=== PATIENT | female | born 1955 | race Caucasian/White ===

== ENCOUNTER 2018-07-14 07:18 | Day surgery (SDC) | payer OTHER ==
--- OUTSIDE RECORDS SUMMARY | 2018-07-14 07:21 | XMS REPORT | Continuity of Care Document ---
:1955 Author Organization Interface Problems Problem Status Onset Classification Date Comments Source Date Reported SLE Active 03/22/20 Finding 03/31/[address] [facility] Status post fall Active 03/22/20 Finding 03/31/[address] [facility] Urinary Active 03/22/20 Finding 03/31/[address] [facility] incontinence [facility] [place] Chronic pain Active 03/22/20 Finding 03/31/[address] [facility] [place] Chronic Active 03/22/20 Finding 03/31/[address] [facility] anticoagulation [facility] [place] Depression Active 03/22/20 Finding 03/31/[address] [facility] [place] Hyperlipidemia Active 03/22/20 Finding 03/31/[address] [facility] [place] GERD Active 03/22/20 Finding 03/31/[address] [facility] Hypertension Active 03/22/20 Finding 03/31/[address] [facility] Closed right hip Active 03/22/20 Finding 03/31/[address] [facility] fracture [facility] [place] Hypomagnesemia Active 03/22/20 Finding 03/31/[address] [facility] [place] History of mitral Active Finding 03/31/[address] [facility] valve repair [facility] [place] History of type 2 Active Finding 03/31/[address] [facility] diabetes mellitus [facility] [place] Chronic back pain Active Finding 03/31/[address] [facility] History of Active Finding 03/31/[address] [facility] hypertension [facility] [place] Medications Medication Details Route Status Patient Ordering Order Source Instructions Provider Date Iron/Fa/Vit DAILY Active [place] [facility]-Com W/C [facility] Atorvastatin AT BEDTIME Active [place] [facility] Calcium [facility] [place] Hydrocodone Q6H PRN Active [facility] 7.5/Apap 325 [facility]17 [facility] [place] Metoprolol TWICE Active [place] [facility] Tartrate DAILY [facility] [place] Bupropion Hcl DAILY Active [facility] [place] Citalopram DAILY Active [facility] [place] Gabapentin Q6H Active [facility] [place] Lisinopril TWICE Active [facility] DAILY [facility] [place] Amlodipine DAILY Active [facility] [place] Warfarin Sodium DAILY Active [facility] [place] Metoprolol TWICE Active [facility] Tartrate DAILY [facility]17 [facility] [place] Omeprazole DAILY Active [facility] [place] Oxybutynin TWICE Active [facility] Chloride DAILY [facility] [place] Trazodone Hcl AT BEDTIME Active [facility] [place] Enoxaparin TWICE Active [facility] Sodium DAILY [facility] [place] Hydrocodone TWICE Active [facility] Bit/Acetaminoph DAILY PRN [facility]17 [facility] [place] Allergies, Adverse Reactions, Alerts Substance Category Reaction Severity Reaction Status Date Comments Source type Reported Immunizations Immunization Date Given Site Status Last Updated Comments Source Results Order Name Results Value Reference Date Interpretation Comments Source Range Laboratory Sodium Level 137 mEq/L 135 - 145 03/31 [facility] . [facility] [place] [facility] Prealbumin 12.2 mg/dl 18 - 38 03/31 [facility] . [facility] [place] [facility] Potassium 4.6 mEq/L 3.6 - 5.0 03/31 [facility] [place] [facility] Magnesium 2.0 mg/dL 1.8 - 2.5 03/31 [facility] [place] [facility] Glucose Level 102 mg/dL 65 - 120 03/31 [facility] . [facility] [place] [facility] Estimat 72 mL/min 90 03/31 [facility] St[facility] Studies Glomerular /2017 [facility] Filtration [place] Rate Laboratory Creatinine 0.81 mg/dL 0.44 - 03/31 [facility] St[facility] Studies 1.00 [facility] [place] Laboratory Chloride 97 mEq/L 101 - 111 03/31 [facility] St[facility] Studies Level /2017 [facility] [place] Laboratory Carbon 35 mEq/L 21 - 31 03/31 [facility] St[facility] Studies Dioxide Level /2017 [facility] [place] Laboratory Calcium Level 8.9 mg/dL 8.5 - 10.5 03/31 [facility] St. Studies /2017 [facility] [place] Laboratory Blood Urea 17 mg/dL 6 - 20 03/31 [facility]3]. Studies Nitrogen /2017 [facility] [place] Laboratory Albumin 2.6 g/dL 3.2 - 5.5 03/31 [facility] St. Studies /2017 [facility] [place] Laboratory Prothrombin 28.3 9.5 - 12.5 03/31 [facility] St. Studies Time SECONDS [facility] [place] Laboratory INR 2.38 03/31 [facility] St. Studies International /2017 [facility] Normalized [place] Ratio Laboratory White Blood 7.3 K/uL 4.3 - 10.9 03/31 [facility] St. Studies Count /2017 [facility] [place] Laboratory Red Cell 13.9 % 12.1 - 03/31 [facility]3]. Studies Distribution 15.2 [facility] Width [place] Laboratory Red Blood 3.16 M/uL 3.86 - 03/31 [facility] St. Studies Count 4.86 /2017 [facility] [place] Laboratory Platelet 329 K/uL 152 - 406 03/31 [facility] St. Studies Count /2017 [facility] [place] Laboratory Neutrophils % 63.8 % 41.7 - 03/31 [facility] St. Studies 73.7 /2017 [facility] [place] Laboratory Monocytes % 13.4 % 3.3 - 12.3 03/31 [facility] St. Studies /2018 [facility] [place] Laboratory Mean Platelet 8.2 fL 7.6 - 11.3 03/31 [facility] St. Studies Volume /2018 [facility] [place] Laboratory Mean 92.4 fL 80 - 100 03/31 [facility] St. Studies Corpuscular /2018 [facility] Volume [place] Laboratory Mean 33.1 g/dL 32.0 - 03/31 [facility] St. Studies Corpuscular 36.0 /2017 [facility] Hemoglobin [place] Concent Laboratory Mean 30.6 pg 27.0 - 03/31 [facility] St. Studies Corpuscular 35.0 /2017 [facility] Hemoglobin [place] Laboratory Lymphocytes % 20.1 % 15.3 - 01 [facility] St. Studies 44.8 /2017 [facility] [place] Laboratory Hemoglobin 9.7 g/dL 12.0 - 03/31 [facility] St. Studies 15.0 /2017 [facility] [place] Laboratory Hematocrit 29.2 % 36.0 - 03/31 [facility] St. Studies 45.0 /2017 [facility] [place] Laboratory Eosinophils % 1.3 % 0 - 4.4 03/31 St. Studies /2017 [facility] [place] Laboratory Basophils % 1.4 % 0 - 1.3 03/31 [facility] St[facility] Studies [facility] [place] Laboratory Absolute 4.6 K/uL 1.8 - 8.0 03/31 [facility] St. Studies Neutrophil [facility] [place] Laboratory Absolute 1.0 K/uL 0.1 - 1.3 03/31 [facility] St[facility] Studies Monocytes [facility] (CBC) [place] Laboratory Absolute 1.5 K/uL 0.7 - 4.9 03/31 [facility] St. Studies Lymphocytes [facility] (CBC) [place] Laboratory Absolute 0.1 K/uL 0 - 0.5 03/31 [facility] St. Studies Eosinophils [facility] (CBC) [place] Laboratory Absolute 0.1 K/uL 0 - 0.5 03/31 [facility] St. Studies Basophils [facility] (CBC) [place] Microbiolog Escherichia Escherichia 03/27 [facility] St. y Studies Coli Coli /2016 [facility] [place] Laboratory Urine WBC Urine WBC 03/25 [facility] St[facility] Studies [facility] [place] Laboratory Urine Urine 03/25 [facility] St[facility] Studies Squamous Squamous /2016 [facility] Epithelial Epithelial [place] Cells Cells Laboratory Urine RBC null 03/25 St. Studies [facility] [place] Laboratory Urine Culture Urine 03/25 [facility] St[facility] Studies Reflexed Culture /2016 [facility] Reflexed [place] Laboratory Urine null 03/25 [facility] St[facility] Studies Bacteria [facility] [place] Laboratory Urine pH 6.5 03/25 [facility] [address] Studies [facility] [place] Laboratory Urine 0.2 mg/dL 03/25 [facility] St[facility] Studies Urobilinogen [facility] [place] Laboratory Urine Total Urine Total 03/25 [facility] [address] Studies Protein Protein [facility] [place] Laboratory Urine Urine 03/25 [facility] [address] Studies Specific Specific /2016 [facility] [place] Laboratory Urine Nitrite Urine 03/25 [facility] [address] Studies Nitrite [facility] [place] Laboratory Urine Urine 03/25 [facility] [address] Studies Leukocyte Leukocyte [facility] Esterase Esterase [place] Laboratory Urine Ketones Urine 03/25 [facility] [address] Studies Ketones [facility] [place] Laboratory Urine Glucose Urine 03/25 [facility] [address] Studies Glucose [facility] [place] [facility] Urine Color Urine Color 03/25 [facility] [address] Studies [facility] [place] Laboratory Urine Blood Urine Blood 03/25 [facility] [address] Studies [facility] [place] Laboratory Urine Urine 03/25 [facility] [address] Studies Bilirubin Bilirubin [facility] [place] Laboratory Urine Urine 03/25 [facility] [address] Studies Appearance Appearance [facility] [place] Microbiolog Enterococcus Enterococcu 03/24 [facility] St[facility] y Studies Faecalis s Faecalis [facility] [place] Laboratory Phosphorus 3.1 mg/dL 2.5 - 4.3 03/21 [facility] St[facility] Studies Level /2016 [facility] [place] Vital Signs Vital Sign Value Date Comments Source Temperature Oral (F) 97.2 F 03/31/2017 [facility] [place] Heart Rate 75 03/31/2017 [facility] [place] Respitory Rate 16 03/31/2017 [facility] [place] Systolic (mm Hg) 112 03/31/2017 [facility] [place] Diastolic (mm Hg) 53 03/31/[address] [facility] [place] Height 65 03/26/[address] [facility] [place] Weight 135 03/26/2017 [facility] [place] Encounters Location Location Encounter Encounter Reason Attending ADM DC Status Source Details Type Number For Provider Date Date Visit [id number]20 03[facility]24 [facility] [place] [facility] St[facility] Discharged [id number] 03/24 03[facility]31 [facility] Procedures Procedure Code Date Perfomer Comments Source [place] Count [id number] 03/25/2017 DOC Bill [id number] 03/25/2017 DOC [facility] [place] Count [id number] 03/22/2017 DOC Bill [id number] 03/22/2017 DOC Bill HIP BIOMET BIPOLAR [id number] 03/21/2017 [place] [facility] [place] [facility] MARIE Rodrigezt Pelvis [id number] 03/21/2017 DOC Bill Hip Right 2 View [id number] 03/20/2017 DOC Bill Chest Single View [id number] 03/20/2017 DOC Bill Pelvis [id number] 03/20/2017 [facility]
--- OUTSIDE RECORDS SUMMARY | 2018-07-14 07:22 | XMS REPORT ---
:1955 Author Organization eClinicalWorks Care Team Providers Name Role Phone Devin Quispe Provider Role Unavailable Allergies No Known Allergies Problems Problem Type Condition Code Onset Dates Condition Status Problem History of mitral valve replacement Z95.2 Active Problem Tobacco use disorder F17.200 Active Problem Hematuria, unspecified R31.9 Active Problem Depression with anxiety F41.8 Active Problem Chronic back pain M54.9 Active Problem Stress incontinence N39.3 Active Problem Chronic obstructive pulmonary J44.9 Active disease (COPD) Problem Hyperlipidemia, mixed E78.2 Active Problem Benign hypertension I10 Active Problem Lumbar disc herniation M51.26 Active Assessment History of mitral valve replacement Z95.2 Active Problem Peripheral vascular disease I73.9 Active Problem Incontinence of urine R32 Active Problem Hypomagnesemia E83.42 Active Problem History of cerebrovascular accident Z86.73 Active Problem Peptic ulcer disease K27.9 Active Problem Spinal stenosis of lumbar region, M48.061 Active unspecified whether neurogenic claudication present Medications Medication Code System Code Instructions Start End Date Status Dosage Date Warfarin Sodium [facility] 42380762854 5 MG Orally once Active 1 tab daily Results No Known Results Summary Purpose eClinicalWorks Submission
--- OUTSIDE RECORDS SUMMARY | 2018-07-14 07:22 | XMS REPORT ---
[...] Problem Lumbar disc herniation M51.26 Active Assessment Chronic obstructive pulmonary J44.9 Active disease (COPD) Assessment Encounter for preventative adult Z00.01 Active health care exam with abnormal findings Problem Peripheral vascular disease I73.9 Active Problem Incontinence of urine R32 Active Problem Hypomagnesemia E83.42 Active Problem History of cerebrovascular accident Z86.73 Active Problem Peptic ulcer disease K27.9 Active Problem Spinal stenosis of lumbar region, M48.061 Active unspecified whether neurogenic claudication present Medications No Known Medications Results No Known Results Summary Purpose eClinicalWorks Submission
--- OUTSIDE RECORDS SUMMARY | 2018-07-14 07:22 | XMS REPORT ---
[...] Active Problem Lumbar disc herniation M51.26 Active Problem Peripheral vascular disease I73.9 Active Problem Incontinence of urine R32 Active Problem Hypomagnesemia E83.42 Active Problem History of cerebrovascular accident Z86.73 Active Problem Peptic ulcer disease K27.9 Active Problem Spinal stenosis of lumbar region, M48.061 Active unspecified whether neurogenic claudication present Medications Medication Code Code Instructions Start End Status Dosage System Date Date Atorvastatin [facility] 33431097556 10 MG Orally Active 1 tablet Calcium Once a day Triamcinolone [facility] 80010709263 0.1 Externally Active 1 application Acetonide 2-3 times a day to affected area Results No Known Results Summary Purpose eClinicalWorks Submission
--- OUTSIDE RECORDS SUMMARY | 2018-07-14 07:22 | XMS REPORT ---
:1955 Author Organization eClinicalWorks Care Team Providers Name Role Phone Jose Enrique Devin Provider Role Unavailable Allergies No Known Allergies [...] Medications Results No Known Results Summary Purpose [employer] Submission
--- OUTSIDE RECORDS SUMMARY | 2018-07-14 07:22 | XMS REPORT ---
:1955 Author Organization eClinicalWorks Care Team Providers Name Role Phone EvelinsoledadDerick Provider Role Unavailable Allergies, Adverse Reactions, Alerts Substance Reaction Event Type Tylenol # 3 Info Not Available Drug Allergy Problems Problem Type Condition Code Onset Dates [...] Problem Lumbar disc herniation M51.26 Active Assessment Encounter for screening colonoscopy Z12.11 Active Problem Peripheral vascular disease I73.9 Active Problem Incontinence of urine R32 Active Problem Hypomagnesemia E83.42 Active Problem History of cerebrovascular accident Z86.73 Active Problem Peptic ulcer disease K27.9 Active Problem Spinal stenosis of lumbar region, M48.061 Active unspecified whether neurogenic claudication present Medications Medication Code Code Instructions Start End Status Dosage System Date Date Norvasc [facility] 44921984041 5 MG Orally Active 1 tablet Once a day Oxybutynin [facility] 55758436470 5 MG Active 2 TABS BY Chloride MOUTH EVERY 12 HOURS Citalopram [facility] 65445387350 40 MG Orally Active 1.5 tablets Hydrobromide once a day Omeprazole [facility] 83869355383 20 Active TAKE 1 CAPSULE BY MOUTH EVERY DAY HydrOXYzine [facility] 28068203575 50 MG Orally Active 1 capsule as Pamoate every 8 hrs needed PRN anxiety Hemocyte [facility] 45077288386 324 (106 Fe) Active not defined MG Orally Warfarin Sodium [facility] 16818214309 5 MG Orally Active 1 tab once daily Oxybutynin [facility] 05853377241 5 MG Orally Active 1 tablet Chloride Twice a day Trazodone HCl [facility] 00201700862 100 Active 1 TAB BY MOUTH TWICE DAILY Metoprolol [facility] 11043580357 25 MG Orally Active 0.5 tablet Tartrate ONce a day with food Gabapentin [facility] 36172785706 600 Active TAKE 1 TABLET BY MOUTH FOUR TIMES DAILY [place] [facility] 68037575293 5-325 MG Active 1 tablet as Orally every 6 needed hrs Gabapentin [facility] 26680373287 600 MG Orally Active 1 tablet 4 TIMES PER DAY Ventolin HFA [facility] 50688182604 108 (90 Base) Active 2 PUFF(S) MCG/ACT INHALED 4 TIMES A DAY FOR 30 DAYS Atorvastatin [facility] 73806808989 10 MG Orally Active 1 tablet Calcium Once a day Trazodone HCl [facility] 22170696572 100 MG Orally Active 1 tablet TWICE DAILY BuPROPion HCl ER [facility] 31072669891 300 MG Orally Active 1 tab (XL) once a day Triamcinolone [facility] 90477356387 0.1 Externally Active 1 application Acetonide 2-3 times a to affected day area Omeprazole [facility] 16684301832 20 MG Orally Active 1 capsule Once a day Lipitor [facility] 21421358933 10 Orally Once Active 1 tablet a day Kenalog [facility] [address]-09 0.1% Active 1 application Externally to affected Three times a area day Oxybutynin [facility] 23757084385 5 Active 2 TABS BY Chloride MOUTH EVERY 12 HOURS Lipitor [facility] 68400377781 10 MG Orally Active 1 tablet Once a day Results No Known Results Summary Purpose eClinicalWorks Submission
--- OUTSIDE RECORDS SUMMARY | 2018-07-14 07:22 | XMS REPORT ---
:1955 Author Organization eClinicalWorks Care Team Providers Name Role Phone Jose Enrique [facility] Provider Role Unavailable Allergies, Adverse Reactions, Alerts Substance Reaction Event Type Tylenol # 3 Info Not Available Drug Allergy Problems Problem Type Condition Code Onset Dates Condition Status Problem History of mitral valve replacement Z95.2 Active Problem Tobacco use disorder F17.200 Active Problem Hematuria, unspecified R31.9 Active Problem Depression with anxiety F41.8 Active Assessment Screening mammogram, encounter for Z12.31 Active Problem Chronic back pain M54.9 Active Assessment Encounter for screening for other Z11.59 Active viral diseases Assessment Need for Tdap vaccination Z23 Active Problem Stress incontinence N39.3 Active Problem Chronic obstructive pulmonary J44.9 Active disease (COPD) Problem Hyperlipidemia, mixed E78.2 Active Problem Benign hypertension I10 Active Problem Lumbar disc herniation M51.26 Active Assessment Encounter for preventative adult Z00.01 Active health care exam with abnormal findings Assessment Screening for colon cancer Z12.11 Active Assessment Tobacco use disorder F17.200 Active Problem Peripheral vascular disease I73.9 Active Problem Incontinence of urine R32 Active Problem Hypomagnesemia E83.42 Active Problem History of cerebrovascular accident Z86.73 Active Assessment Need for pneumococcal vaccination Z23 Active Problem Peptic ulcer disease K27.9 Active Problem Spinal stenosis of lumbar region, M48.061 Active unspecified whether neurogenic claudication present Medications Medication Code Code Instructions Start End Status Dosage System Date Date Lipitor [facility] 20032867579 10 MG Orally Active 1 tablet Once a day Gabapentin ND 69581336967 600 MG Orally Active 1 tablet 4 TIMES PER DAY Hemocyte [facility] 78263388978 324 (106 Fe) Active not defined MG Orally Oxybutynin ND 55942427463 5 MG Active 2 TABS BY Chloride MOUTH EVERY 12 HOURS Oxybutynin ND 11349059706 5 MG Orally Active 1 tablet Chloride Twice a day Omeprazole ND 29958688013 20 Active TAKE 1 CAPSULE BY MOUTH EVERY DAY Atorvastatin ND 73614192930 10 Active TAKE 1 TABLET Calcium BY MOUTH AT BEDTIME. Omeprazole [facility] 64724033769 20 MG Orally Active 1 capsule Once a day Metoprolol [facility] 12711421399 25 MG Orally Active 0.5 tablet Tartrate ONce a day with food Ventolin HFA [facility] 50814974060 108 (90 Base) Active 2 PUFF(S) MCG/ACT INHALED 4 TIMES A DAY FOR 30 DAYS Kenalog [facility] [address]-41 0.1% Active 1 application Externally to affected Three times a area day Oxybutynin [facility] 40379061091 5 Active 2 TABS BY Chloride MOUTH EVERY 12 HOURS Gabapentin [facility] 76273187225 600 Active TAKE 1 TABLET BY MOUTH FOUR TIMES DAILY Citalopram [facility] 10771643958 40 MG Orally Active 1.5 tablets Hydrobromide once a day BuPROPion HCl ER [facility] 69274749985 300 MG Orally Active 1 tab (XL) once a day Norvasc [facility] 18818661385 5 MG Orally Active 1 tablet Once a day [place] [facility] 32093980315 5-325 MG Active 1 tablet as Orally every 6 needed hrs HydrOXYzine [facility] 67553084765 50 MG Orally Active 1 capsule as Pamoate every 8 hrs needed PRN anxiety Lipitor [facility] 14451204247 10 Orally Once Active 1 tablet a day Trazodone HCl [facility] 21568740236 100 Active 1 TAB BY MOUTH TWICE DAILY Warfarin Sodium [facility] 31956852056 5 MG Orally Active not defined Triamcinolone [facility] 84741911942 0.1 Active APPLY 2-3 Acetonide TIMES DAILY TO AFFECTED AREA(S). Trazodone HCl [facility] 63798929793 100 MG Orally Active 1 tablet TWICE DAILY Results No Known Results Immunizations Vaccine Administration Date TDAP > 7 Years-Adacel Nov 21, 2017 Pneumovax Nov 21, 2017 Summary Purpose eClinicalWorks Submission
--- OUTSIDE RECORDS SUMMARY | 2018-07-14 07:22 | XMS REPORT ---
[...] Medications Results No Known Results Summary Purpose [employer] Submission
--- OUTSIDE RECORDS SUMMARY | 2018-07-14 07:22 | XMS REPORT ---
[...] Start End Status Dosage System Date Date Citalopram [facility] 51377900153 40 MG Orally Dec 16, Active 1 tablet Hydrobromide Once a day 2017 with 20mg=60mg Citalopram NDC 82869200157 20 MG Orally Dec 16, Active 1 tablet Hydrobromide Once a day 2017 with 40mg=60mg Results No Known Results Summary Purpose eClinicalWorks Submission
--- OUTSIDE RECORDS SUMMARY | 2018-07-14 07:22 | XMS REPORT ---
:1955 Author Organization eClinicalWorks Care Team Providers Name Role Phone [place] Tasha Provider Role Unavailable Allergies No Known Allergies [...]
--- OUTSIDE RECORDS SUMMARY | 2018-07-14 07:22 | XMS REPORT ---
:1955 [facility] Address [address] [place] [address] [address] [place] [address] Care Team Providers Name Role Phone Unavailable Unavailable Unavailable Problems This patient has no known problems. Allergies, Adverse Reactions, Alerts This patient has no known allergies or adverse reactions. Medications This patient has no known medications.
--- OUTSIDE RECORDS SUMMARY | 2018-07-14 07:22 | XMS REPORT ---
[...] Medications Results No Known Results Summary Purpose [facility] [employer] Submission
--- OUTSIDE RECORDS SUMMARY | 2018-07-14 07:23 | XMS REPORT ---
:1955 Author Organization eClinicalWorks Care Team Providers Name Role Phone Devin Quispe Provider Role Unavailable Allergies No Known Allergies Problems Problem Type Condition Code Onset Dates Condition Status Problem Tobacco use disorder F17.200 Active Problem Chronic obstructive pulmonary J44.9 Active disease (COPD) Problem Hyperlipidemia, mixed E78.2 Active Problem Abnormal mammogram R92.8 Active Problem Stress incontinence N39.3 Active Problem Atherosclerosis of [place] artery of I70.211 Active right lower extremity with intermittent claudication Problem Benign hypertension I10 Active Problem Lumbar disc herniation M51.26 Active Problem Depression with anxiety F41.8 Active Problem Chronic back pain M54.9 Active Problem Hypomagnesemia E83.42 Active Problem Peptic ulcer disease K27.9 Active Assessment Benign hypertension I10 Active Problem History of cerebrovascular accident Z86.73 Active Problem Spinal stenosis of lumbar region, M48.061 Active unspecified whether neurogenic claudication present Problem Peripheral vascular disease I73.9 Active Problem History of mitral valve replacement Z95.2 Active Problem Incontinence of urine R32 Active Problem Hematuria, unspecified R31.9 Active Medications Medication Code Code Instructions Start End Status Dosage System Date Date Ventolin HFA [facility] 95012137327 108 (90 Base) Active 2 puffs as MCG/ACT needed Inhalation every 6 hrs Hemocyte [facility] 81537920804 324 (106 Fe) Active not defined MG Orally Gabapentin ND 75897122100 600 MG Orally Active 1 tablet 4 TIMES PER DAY HydrOXYzine ND 83661752062 50 MG Orally Active 1 capsule as Pamoate every 8 hrs needed PRN anxiety BuPROPion HCl ND 48403420834 300 MG Orally Active 1 tab ER (XL) once a day BuPROPion HCl ND 42111302667 300 Orally Active 1 tab ER (XL) once a day Omeprazole ND 77104145088 20 Active TAKE 1 CAPSULE BY MOUTH EVERY DAY Omeprazole ND 69995719757 20 MG Orally Active 1 capsule Once a day Oxybutynin [facility] 03434868615 5 MG Orally Active 1 tablet Chloride Twice a day Ventolin HFA [facility] 85032249207 108 (90 Base) Active 2 PUFF(S) MCG/ACT INHALED 4 TIMES A DAY FOR 30 DAYS Trazodone HCl [facility] 29858369485 100 MG Orally Active 1 tablet TWICE DAILY Gabapentin [facility] 17404904768 600 Active TAKE 1 TABLET BY MOUTH FOUR TIMES DAILY. Warfarin Sodium [facility] 28184724648 5 Orally once Active 1 tab daily Atorvastatin [facility] 74915204221 10 MG Orally Active 1 tablet Calcium Once a day Triamcinolone [facility] 04809512572 0.1 Externally Active 1 application Acetonide 2-3 times a to affected day area Kenalog [facility] [address]-90 0.1% Active 1 application Externally to affected Three times a area day [place] [facility] 25955484005 5-325 MG Active 1 tablet as Orally every 6 needed hrs Norvasc [facility] 28846745402 5 MG Orally Active 1 tablet Once a day Oxybutynin [facility] 70248340628 5 Active TAKE 2 Chloride TABLETS BY MOUTH EVERY 12 HOURS. Citalopram [facility] 90089905890 40 MG Orally Active 1 tablet with Hydrobromide Once a day 20mg=60mg Warfarin Sodium [facility] 21703865144 5 MG Orally Active not defined Metoprolol [facility] 51438192776 50 MG Orally Inactive 0.5 tablet Tartrate Every other with food day Lipitor [facility] 95964540465 10 MG Orally Active 1 tablet Once a day Results No Known Results Summary Purpose eClinicalWorks Submission
--- OUTSIDE RECORDS SUMMARY | 2018-07-14 07:23 | XMS REPORT ---
:1955 Author Organization eClinicalWorks Care Team Providers Name Role Phone Jose Enrique Devin Provider Role Unavailable Allergies, Adverse Reactions, Alerts Substance Reaction Event Type Tylenol # 3 Info Not Available Drug Allergy Problems Problem Type Condition Code Onset Dates Condition Status Assessment Iron deficiency E61.1 Active Assessment Hematuria, unspecified R31.9 Active Assessment History of mitral valve replacement Z95.2 Active Assessment Hypomagnesemia E83.42 Active Assessment Chronic back pain M54.9 Active Assessment Tobacco use disorder F17.200 Active Assessment Peptic ulcer disease K27.9 Active Assessment Peripheral vascular disease I73.9 Active Problem History of mitral valve replacement Z95.2 Active Assessment History of cerebrovascular accident Z86.73 Active Problem Hematuria, unspecified R31.9 Active Assessment Benign hypertension I10 Active Problem Tobacco use disorder F17.200 Active Problem Chronic obstructive pulmonary J44.9 Active disease (COPD) Problem Hyperlipidemia, mixed E78.2 Active Problem Abnormal mammogram R92.8 Active Problem Stress incontinence N39.3 Active Assessment Chronic obstructive pulmonary J44.9 Active disease (COPD) Assessment Depression with anxiety F41.8 Active Problem Atherosclerosis of [place] artery of I70.211 Active right lower extremity with intermittent claudication Assessment Hyperlipidemia, mixed E78.2 Active Problem Benign hypertension I10 Active Problem Lumbar disc herniation M51.26 Active Problem Depression with anxiety F41.8 Active Problem Chronic back pain M54.9 Active Problem Hypomagnesemia E83.42 Active Problem Peptic ulcer disease K27.9 Active Assessment Atherosclerosis of [place] artery of I70.211 Active right lower extremity with intermittent claudication Problem History of cerebrovascular accident Z86.73 Active Problem Spinal stenosis of lumbar region, M48.061 Active unspecified whether neurogenic claudication present Problem Peripheral vascular disease I73.9 Active Problem Incontinence of urine R32 Active Medications Medication Code Code Instructions Start End Status Dosage System Date Date Gabapentin [facility] 42033757906 600 MG Orally Active 1 tablet 4 TIMES PER DAY [place] [facility] 59460786246 5-325 MG Active 1 tablet as Orally every 6 needed hrs Kenalog [facility] [address]-86 0.1% Active 1 application Externally to affected Three times a area day Oxybutynin [facility] 59376444413 5 MG Orally Active 1 tablet Chloride Twice a day Omeprazole [facility] 41701134522 20 Active TAKE ONE CAPSULE BY MOUTH EVERY DAY Warfarin Sodium [facility] 36209429014 5 Orally once Active 1 tab daily Warfarin Sodium [facility] 45095381289 5 MG Orally Active not defined Trazodone HCl [facility] 32163629732 100 MG Orally Active 1 tablet TWICE DAILY Omeprazole [facility] 89388212533 20 Active TAKE 1 CAPSULE BY MOUTH EVERY DAY Hemocyte [facility] 30245018312 324 (106 Fe) Active not defined MG Orally Ventolin HFA [facility] 65827804099 108 (90 Base) Active 2 puffs as MCG/ACT needed Inhalation every 6 hrs BuPROPion HCl ER [facility] 75248606257 300 Orally Active 1 tab (XL) once a day Omeprazole [facility] 72374775864 20 MG Orally Active 1 capsule Once a day Norvasc [facility] 40747451113 5 MG Orally Active 1 tablet Once a day Lipitor [facility] 71800972340 10 MG Orally Active 1 tablet Once a day Citalopram [facility] 35256328067 40 MG Orally Active 1 tablet with Hydrobromide Once a day 20mg=60mg Triamcinolone [facility] 73602080312 0.1 Externally Active 1 application Acetonide 2-3 times a to affected day area Ventolin HFA [facility] 14712527817 108 (90 Base) Active 2 PUFF(S) MCG/ACT INHALED 4 TIMES A DAY FOR 30 DAYS HydrOXYzine [facility] 83490821538 50 MG Orally Active 1 capsule as Pamoate every 8 hrs needed PRN anxiety Metoprolol [facility] 44382244850 25 MG Orally Active 0.5 tablet Tartrate ONce a day with food Oxybutynin [facility] 29528697772 5 Active 2 TABS BY Chloride MOUTH EVERY 12 HOURS Atorvastatin [facility] 05644008339 10 MG Orally Active 1 tablet Calcium Once a day Gabapentin [facility] 84831817867 600 Active TAKE 1 TABLET BY MOUTH FOUR TIMES DAILY. BuPROPion HCl ER [facility] 29880131479 300 MG Orally Active 1 tab (XL) once a day Results No Known Results Summary Purpose eClinicalWorks Submission
--- OUTSIDE RECORDS SUMMARY | 2018-07-14 07:23 | XMS REPORT ---
:1955 Author Organization eClinicalWorks Care Team Providers Name Role Phone Jose Enrique [facility] Provider Role Unavailable Allergies, Adverse Reactions, Alerts Substance Reaction Event Type Tylenol # 3 Info Not Available Drug Allergy Problems Problem Type Condition Code Onset Dates Condition Status Problem Tobacco use disorder F17.200 Active Problem Chronic obstructive pulmonary J44.9 Active disease (COPD) Problem Hyperlipidemia, mixed E78.2 Active Problem Abnormal mammogram R92.8 Active Assessment Unknown skin lesion L98.9 Active Problem Stress incontinence N39.3 Active Assessment Skin irritation R23.8 Active Assessment Change in color of pigmented skin L81.9 Active lesion Problem Atherosclerosis of [place] artery of I70.211 Active right lower extremity with intermittent claudication Problem Benign hypertension I10 Active Problem Lumbar disc herniation M51.26 Active Problem Depression with anxiety F41.8 Active Problem Chronic back pain M54.9 Active Problem Hypomagnesemia E83.42 Active Problem Peptic ulcer disease K27.9 Active Assessment Neoplasm, 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 Problem History of cerebrovascular accident Z86.73 Active Problem Spinal stenosis of lumbar region, M48.061 Active unspecified whether neurogenic claudication present Problem Peripheral vascular disease I73.9 Active Problem History of mitral valve replacement Z95.2 Active Problem Incontinence of urine R32 Active Problem Hematuria, unspecified R31.9 Active Medications Medication Code Code Instructions Start End Status Dosage System Date Date Ventolin HFA [facility] 85709927184 108 (90 Base) Active 2 puffs as MCG/ACT needed Inhalation every 6 hrs Oxybutynin [facility] 41978748993 5 MG Orally Active 1 tablet Chloride Twice a day Gabapentin ND 16642533444 600 MG Orally Active 1 tablet 4 TIMES PER DAY BuPROPion HCl ER [facility] 33619595450 300 MG Orally Active 1 tab (XL) once a day Citalopram [facility] 07523740031 40 MG Orally Active 1 tablet with Hydrobromide Once a day 20mg=60mg Warfarin Sodium [facility] 11093055591 5 Orally once Active 1 tab daily Omeprazole [facility] 65277336655 20 Active TAKE 1 CAPSULE BY MOUTH EVERY DAY Omeprazole [facility] 81204338019 20 MG Orally Active 1 capsule Once a day [place] [facility] 49688829249 5-325 MG Active 1 tablet as Orally every 6 needed hrs BuPROPion HCl ER [facility] 78486916331 300 Orally Active 1 tab (XL) once a day Lipitor [facility] 16312620253 10 MG Orally Active 1 tablet Once a day Oxybutynin [facility] 16300893785 5 Active TAKE 2 Chloride TABLETS BY MOUTH EVERY 12 HOURS. Ventolin HFA [facility] 90907543407 108 (90 Base) Active 2 PUFF(S) MCG/ACT INHALED 4 TIMES A DAY FOR 30 DAYS Atorvastatin [facility] 59204863684 10 MG Orally Active 1 tablet Calcium Once a day Triamcinolone [facility] 11759435091 0.1 Externally Active 1 application Acetonide 2-3 times a to affected day area Kenalog [facility] [address]-23 0.1% Active 1 application Externally to affected Three times a area day Hemocyte [facility] 21507931179 324 (106 Fe) Active not defined MG Orally Norvasc [facility] 79536883844 5 MG Orally Active 1 tablet Once a day Gabapentin [facility] 42503150353 600 Active TAKE 1 TABLET BY MOUTH FOUR TIMES DAILY. HydrOXYzine [facility] 22043040918 50 MG Orally Active 1 capsule as Pamoate every 8 hrs needed PRN anxiety Warfarin Sodium [facility] 05435703188 5 MG Orally Active not defined Trazodone HCl [facility] 80967022062 100 MG Orally Active 1 tablet TWICE DAILY Metoprolol [facility] 91741837517 25 MG Orally Active 0.5 tablet Tartrate ONce a day with food Results No Known Results Summary Purpose eClinicalWorks Submission
--- OUTSIDE RECORDS SUMMARY | 2018-07-14 07:23 | XMS REPORT ---
[...] Stress incontinence N39.3 Active Problem Atherosclerosis of [place] artery of I70.211 Active right lower extremity with intermittent claudication Problem Benign hypertension I10 Active Problem Lumbar disc herniation M51.26 Active Problem Depression with anxiety F41.8 Active Problem Chronic back pain M54.9 Active Problem Hypomagnesemia E83.42 Active Problem Peptic ulcer disease K27.9 Active Problem History of cerebrovascular accident Z86.73 Active Problem Spinal stenosis of lumbar region, M48.061 Active unspecified whether neurogenic claudication present Problem Peripheral vascular disease I73.9 Active Problem History of mitral valve replacement Z95.2 Active Problem Incontinence of urine R32 Active Problem Hematuria, unspecified R31.9 Active Medications No Known Medications Results No Known Results Summary Purpose eClinicalWorks Submission
--- OUTSIDE RECORDS SUMMARY | 2018-07-14 07:23 | XMS REPORT ---
[...] Stress incontinence N39.3 Active Problem Atherosclerosis of [place] artery of I70.211 Active right lower extremity [...] Medications Medication Code Code Instructions Start End Date Status Dosage System Date Metoprolol [facility] 07695841771 25 MG Orally Active 1 tablet Tartrate Once a day with food Results No Known Results Summary Purpose eClinicalWorks Submission
--- OUTSIDE RECORDS SUMMARY | 2018-07-14 07:23 | XMS REPORT ---
:1955 Author Organization eClinicalWorks Care Team Providers Name Role Phone Opal Quispeh Provider Role Unavailable Allergies, Adverse Reactions, Alerts Substance Reaction Event Type Tylenol # 3 Info Not Available Drug Allergy Problems Problem Type Condition Code Onset Dates Condition Status Assessment History of mitral valve replacement Z95.2 Active Assessment Iron deficiency E61.1 Active Assessment Hypomagnesemia E83.42 Active Assessment Hematuria, unspecified R31.9 Active Assessment Chronic back pain M54.9 Active Assessment Tobacco use disorder F17.200 Active Assessment Peptic ulcer disease K27.9 Active Assessment Peripheral vascular disease I73.9 Active Assessment History of cerebrovascular accident Z86.73 Active Problem History of mitral valve replacement Z95.2 Active Assessment Benign hypertension I10 Active Problem Hematuria, unspecified R31.9 Active Assessment Hyperlipidemia, mixed E78.2 Active Problem Tobacco use disorder F17.200 Active Problem Chronic obstructive pulmonary J44.9 Active disease (COPD) Problem Hyperlipidemia, mixed E78.2 Active Problem Abnormal mammogram R92.8 Active Problem Stress incontinence N39.3 Active Assessment Medicare annual wellness visit, Z00.00 Active subsequent Assessment Chronic obstructive pulmonary J44.9 Active disease (COPD) Problem Atherosclerosis of [place] artery of I70.211 Active right lower extremity with intermittent claudication Assessment Depression with anxiety F41.8 Active Problem Benign hypertension I10 Active Problem Lumbar disc herniation M51.26 Active Problem Depression with anxiety F41.8 Active Problem Chronic back pain M54.9 Active Assessment Spinal stenosis of lumbar region, M48.061 Active unspecified whether neurogenic claudication present Problem Hypomagnesemia E83.42 Active Assessment Incontinence of urine R32 Active Problem Peptic ulcer disease K27.9 Active Assessment BMI 22.0-22.9, adult Z68.22 Active Assessment Atherosclerosis of [place] artery of I70.211 Active right lower extremity with intermittent claudication Assessment Lumbar disc herniation M51.26 Active Problem History of cerebrovascular accident Z86.73 Active Problem Spinal stenosis of lumbar region, M48.061 Active unspecified whether neurogenic claudication present Problem Peripheral vascular disease I73.9 Active Problem Incontinence of urine R32 Active Medications Medication Code Code Instructions Start End Status Dosage System Date Date Atorvastatin [facility] 96993172597 10 MG Orally Active 1 tablet Calcium Once a day Ventolin HFA [facility] 12792883254 108 (90 Base) Active 2 PUFF(S) MCG/ACT INHALED 4 TIMES A DAY FOR [address] S[address] [facility] 56750382458 5 MG Orally Active not defined Gabapentin [facility] 52344941313 600 MG Orally Active 1 tablet 4 TIMES PER DAY Oxybutynin [facility] 51267980353 5 Active TAKE 2 Chloride TABLETS BY MOUTH EVERY [address]. [address] [facility] 96550939226 10 MG Orally Active 1 tablet Once a day BuPROPion HCl ER [facility] 80330264369 300 MG Orally Active 1 tab (XL) once a day Omeprazole [facility] 32613674520 20 Active TAKE 1 CAPSULE BY MOUTH EVERY DAY Ventolin HFA [facility] 91621651423 108 (90 Base) Active 2 puffs as MCG/ACT needed Inhalation every [address] [facility] 32631513685 25 MG Orally Active 0.5 tablet Tartrate ONce a day with food Gabapentin [facility] 82771112645 600 Active TAKE 1 TABLET BY MOUTH FOUR TIMES DAILY. Citalopram [facility] 42065432226 40 MG Orally Active 1 tablet with Hydrobromide Once a day 20mg=60mg Norvasc [facility] 94613384846 5 MG Orally Active 1 tablet Once a day Hemocyte [facility] 81023061972 324 (106 Fe) Active not defined MG Orally Kenalog [facility] [address]-42 0.1% Active 1 application Externally to affected Three times a area day Warfarin Sodium [facility] 60019118490 5 Orally once Active 1 tab daily BuPROPion HCl ER [facility] 69218882057 300 Orally Active 1 tab (XL) once a day Oxybutynin [facility] 23670959617 5 MG Orally Active 1 tablet Chloride Twice a day HydrOXYzine [facility] 03602064274 50 MG Orally Active 1 capsule as Pamoate every 8 hrs needed PRN anxiety [place] [facility] 40509856293 5-325 MG Active 1 tablet as Orally every 6 needed hrs Triamcinolone [facility] 74591034064 0.1 Externally Active 1 application Acetonide 2-3 times a to affected day area Omeprazole [facility] 37129750567 20 MG Orally Active 1 capsule Once a day Trazodone HCl [facility] 65157335593 100 MG Orally Active 1 tablet TWICE DAILY Results No Known Results Summary Purpose eClinicalWorks Submission
--- OUTSIDE RECORDS SUMMARY | 2018-07-14 07:23 | XMS REPORT ---
[...] Stress incontinence N39.3 Active Problem Atherosclerosis of [place] artery of I70.211 Active right lower extremity [...] Hematuria, unspecified R31.9 Active Medications Medication Code System Code Instructions Start End Date Status Dosage Date Spinosad [facility] 51774540987 0.9 % Externally Apr 11, Apr 12, Active apply to once 2018 2018 hair and scalp, leave for 10 minutes. Rinse well. May repeat in 1 week if needed Results No Known Results Summary Purpose [employer] Submission
--- OUTSIDE RECORDS SUMMARY | 2018-07-14 07:24 | XMS REPORT ---
:1955 Author Organization eClinicalWorks Care Team Providers Name Role Phone Jose Enrique Devin Provider Role Unavailable Allergies No Known Allergies Problems Problem Type Condition Code Onset Dates Condition Status Problem Benign hypertension I10 Active Problem Depression with anxiety F41.8 Active Problem Chronic back pain M54.9 Active Problem Dementia without behavioral F03.90 Active disturbance, unspecified dementia type Problem Hypomagnesemia E83.42 Active Problem Alcohol abuse F10.10 Active Problem History of cerebrovascular accident Z86.73 Active Problem Generalized anxiety disorder F41.1 Active Problem Abnormal mammogram R92.8 Active Problem Stress incontinence N39.3 Active Problem Current moderate episode of major F32.1 Active depressive disorder without prior episode Problem Atherosclerosis of [place] artery of I70.211 Active right lower extremity with intermittent claudication Problem Incontinence of urine R32 Active Problem Spinal stenosis of lumbar region, M48.061 Active unspecified whether neurogenic claudication present Problem Peptic ulcer disease K27.9 Active Problem Peripheral vascular disease I73.9 Active Problem Tobacco use disorder F17.200 Active Problem Hyperlipidemia, mixed E78.2 Active Problem History of mitral valve replacement Z95.2 Active Problem Chronic obstructive pulmonary J44.9 Active disease (COPD) Assessment Abnormal mammogram R92.8 Active Problem Hematuria, unspecified R31.9 Active Problem Lumbar disc herniation M51.26 Active Medications No Known Medications Results No Known Results Summary Purpose eClinicalWorks Submission
--- OUTSIDE RECORDS SUMMARY | 2018-07-14 07:24 | XMS REPORT ---
[...] disorder without prior episode Problem Atherosclerosis of [place] artery of I70.211 Active right lower extremity [...] J44.9 Active disease (COPD) Assessment Encounter for screening colonoscopy Z12.11 Active Problem Hematuria, unspecified R31.9 Active Problem Lumbar disc herniation M51.26 Active Medications Medication Code Code Instructions Start End Status Dosage System Date Date Ventolin HFA [facility] 76201707083 108 (90 Base) Active 2 puffs as MCG/ACT needed Inhalation every 6 hrs Hemocyte [facility] 98165318771 324 (106 Fe) Active not defined MG Orally Omeprazole ND 11090686027 20 MG Orally Active 1 capsule Once a day Citalopram [facility] 89538674194 40 MG Orally Active 1 tablet with Hydrobromide Once a day 20mg=60mg Metoprolol ND 96943463251 25 MG Orally Active 0.5 tablet Tartrate ONce a day with food Oxybutynin [facility] 13375519683 5 MG Orally Active 1 tablet Chloride Twice a day Triamcinolone [facility] 11572142023 0.1 Externally Active 1 application Acetonide 2-3 times a to affected day area Warfarin Sodium [facility] 63282322265 5 MG Orally Active not defined Trazodone HCl [facility] 41223649051 100 MG Orally Active 1 tablet TWICE DAILY Memantine HCl [facility] 05666859048 10 MG Orally Active 1 tablet Twice a day Norvasc [facility] 76094811210 5 MG Orally Active 1 tablet Once a day Atorvastatin [facility] 99160558055 10 MG Orally Active 1 tablet Calcium Once a day HydrOXYzine [facility] 12044636113 50 MG Orally Active 1 capsule as Pamoate every 8 hrs needed PRN anxiety BusPIRone HCl [facility] 62909865297 10 MG Orally [place] Active 1 tablet Twice a day 2018 Lipitor [facility] 01693581270 10 MG Orally Active 1 tablet Once a day BuPROPion HCl ER [facility] 48146556421 300 MG Orally Active 1 tab (XL) once a day Gabapentin [facility] 98950159861 600 MG Orally Active 1 tablet 4 TIMES PER DAY [place] [facility] 19752009922 5-325 MG Active 1 tablet as Orally every 6 needed hrs Kenalog [facility] [address]-22 0.1% Active 1 application Externally to affected Three times a area day Results No Known Results Summary Purpose eClinicalWorks Submission
--- OUTSIDE RECORDS SUMMARY | 2018-07-14 07:24 | XMS REPORT ---
:1955 Author Organization eClinicalWorks Care Team Providers Name Role Phone Opal Quispeh Provider Role Unavailable Allergies, Adverse Reactions, Alerts Substance Reaction Event Type Tylenol # 3 Info Not Available Drug Allergy Problems Problem Type Condition Code Onset Dates Condition Status Assessment Tobacco use disorder F17.200 Active Assessment Chronic back pain M54.9 Active Assessment Peripheral vascular disease I73.9 Active Assessment Peptic ulcer disease K27.9 Active Assessment History of cerebrovascular accident Z86.73 Active Assessment Benign hypertension I10 Active Assessment History of fall Z91.81 Active Assessment Hyperlipidemia, mixed E78.2 Active Assessment Current moderate episode of major F32.1 Active depressive disorder without prior episode Assessment Dementia without behavioral F03.90 Active disturbance, unspecified dementia type Problem Chronic obstructive pulmonary J44.9 Active disease (COPD) Assessment Chronic obstructive pulmonary J44.9 Active disease (COPD) Problem Lumbar disc herniation M51.26 Active Assessment Atherosclerosis of [place] artery of I70.211 Active right lower extremity with intermittent claudication Problem Benign hypertension I10 Active Problem Depression with anxiety F41.8 Active Problem Chronic back pain M54.9 Active Problem Dementia without behavioral F03.90 Active disturbance, unspecified dementia type Problem Alcohol abuse F10.10 Active Problem Hypomagnesemia E83.42 Active Problem History of cerebrovascular accident Z86.73 Active Assessment Lumbar disc herniation M51.26 Active Problem Generalized anxiety disorder F41.1 Active Assessment BMI 22.0-22.9, adult Z68.22 Active Problem Abnormal mammogram R92.8 Active Assessment Generalized anxiety disorder F41.1 Active Problem Stress incontinence N39.3 Active Assessment Alcohol abuse F10.10 Active Problem Current moderate episode of major F32.1 Active depressive disorder without prior episode Assessment Encounter for counseling and Z71.41 Active surveillance for alcohol use disorder Problem Atherosclerosis of [place] artery of I70.211 Active right lower extremity with intermittent claudication Assessment Hematuria, unspecified R31.9 Active Problem Incontinence of urine R32 Active Assessment Hypomagnesemia E83.42 Active Problem Spinal stenosis of lumbar region, M48.061 Active unspecified whether neurogenic claudication present Assessment Iron deficiency E61.1 Active Problem Peptic ulcer disease K27.9 Active Assessment History of mitral valve replacement Z95.2 Active Problem Peripheral vascular disease I73.9 Active Assessment Spinal stenosis of lumbar region, M48.061 Active unspecified whether neurogenic claudication present Problem Tobacco use disorder F17.200 Active Assessment Incontinence of urine R32 Active Problem Hyperlipidemia, mixed E78.2 Active Problem History of mitral valve replacement Z95.2 Active Problem Hematuria, unspecified R31.9 Active Medications Medication Code Code Instructions Start End Status Dosage System Date Date Warfarin Sodium [facility] 52277221239 5 MG Orally Active not defined Trazodone HCl [facility] 72746589923 100 MG Orally Active 1 tablet TWICE DAILY Metoprolol [facility] 15008970167 25 MG Orally Active 0.5 tablet Tartrate ONce a day with food Gabapentin [facility] 34460095212 600 MG Orally Active 1 tablet 4 TIMES PER DAY Ventolin HFA [facility] 77033567424 108 (90 Base) Active 2 puffs as MCG/ACT needed Inhalation every 6 hrs Oxybutynin [facility] 39577069349 5 MG Orally Active 1 tablet Chloride Twice a day BuPROPion HCl ER [facility] 12090306119 300 MG Orally Active 1 tab (XL) once a day Lipitor [facility] 78391924583 10 MG Orally Active 1 tablet Once a day Norvasc [facility] 30532485168 5 MG Orally Active 1 tablet Once a day Atorvastatin [facility] 93717378133 10 MG Orally Active 1 tablet Calcium Once a day HydrOXYzine [facility] 81963694674 50 MG Orally Active 1 capsule as Pamoate every 8 hrs needed PRN anxiety Memantine HCl [facility] 87129452614 10 MG Orally Active 1 tablet Twice a day Citalopram [facility] 04437095679 40 MG Orally Active 1 tablet with Hydrobromide Once a day 20mg=60mg Hemocyte [facility] 44017062583 324 (106 Fe) Active not defined MG Orally Triamcinolone [facility] 93811963055 0.1 Externally Active 1 application Acetonide 2-3 times a to affected day area [place] [facility] 36008139100 5-325 MG Active 1 tablet as Orally every 6 needed hrs Omeprazole [facility] 72031232779 20 MG Orally Active 1 capsule Once a day Kenalog [facility] [address]-90 0.1% Active 1 application Externally to affected Three times a area day Results No Known Results Summary Purpose eClinicalWorks Submission
--- OUTSIDE RECORDS SUMMARY | 2018-07-14 07:24 | XMS REPORT ---
[...] History of cerebrovascular accident Z86.73 Active Assessment Hyperlipidemia, mixed E78.2 Active Assessment Atherosclerosis of [place] artery of I70.211 Active right lower extremity with intermittent claudication Assessment Benign hypertension I10 Active Assessment Current moderate episode of major F32.1 Active depressive disorder without prior episode Problem Chronic obstructive pulmonary J44.9 Active disease (COPD) Assessment Dementia without behavioral F03.90 Active disturbance, unspecified dementia type Problem Lumbar disc herniation M51.26 Active Assessment Chronic obstructive pulmonary J44.9 Active disease (COPD) Problem Benign hypertension I10 Active Problem Depression [...] Active depressive disorder without prior episode Assessment History of fall Z91.81 Active Problem Atherosclerosis of [place] artery of I70.211 Active right lower extremity [...] Start End Status Dosage System Date Date Triamcinolone [facility] 05917863274 0.1 Externally Active 1 application Acetonide 2-3 times a to affected day area Omeprazole [facility] 68875331565 20 MG Orally Active 1 capsule Once a day [place] [facility] 97332056662 5-325 MG Active 1 tablet as Orally every 6 needed hrs Lipitor [facility] 53885090719 10 MG Orally Active 1 tablet Once a day BuPROPion HCl ER [facility] 04267756071 300 MG Orally Active 1 tab (XL) once a day Metoprolol [facility] 94549822760 25 MG Orally Active 0.5 tablet Tartrate ONce a day with food Atorvastatin [facility] 26247504474 10 MG Orally Active 1 tablet Calcium Once a day Citalopram [facility] 21221700328 40 MG Orally Active 1 tablet with Hydrobromide Once a day 20mg=60mg Kenalog [facility] [address]-41 0.1% Active 1 application Externally to affected Three times a area day Trazodone HCl [facility] 05792457242 100 MG Orally Active 1 tablet TWICE DAILY Oxybutynin [facility] 50066180877 5 MG Orally Active 1 tablet Chloride Twice a day Memantine HCl [facility] 07606306925 10 MG Orally Active 1 tablet Twice a day Norvasc [facility] 30732230603 5 MG Orally Active 1 tablet Once a day Warfarin Sodium [facility] 05618570597 5 MG Orally Active not defined BusPIRone HCl [facility] 27114629194 10 MG Orally May Active 1 tablet Twice a day 2018 Bevespi [facility] 92511538520 9-4.8 MCG/ACT June Active 2 puffs Aerosphere Inhalation , Twice a day 2018 2019 HydrOXYzine [facility] 11084070911 50 MG Orally Active 1 capsule as Pamoate every 8 hrs needed PRN anxiety Hemocyte [facility] 78043919670 324 (106 Fe) Active not defined MG Orally Gabapentin [facility] 66059464691 600 MG Orally Active 1 tablet 4 TIMES PER DAY Ventolin HFA [facility] 37315459713 108 (90 Base) Active 2 puffs as MCG/ACT needed Inhalation every 6 hrs Results No Known Results Summary Purpose eClinicalWorks Submission
--- OUTSIDE RECORDS SUMMARY | 2018-07-14 07:24 | XMS REPORT ---
[...] disorder without prior episode Problem Atherosclerosis of [place] artery of I70.211 Active right lower extremity [...] obstructive pulmonary J44.9 Active disease (COPD) Problem Hematuria, unspecified R31.9 Active Problem Lumbar disc herniation M51.26 Active Medications Medication Code Code Instructions Start End Date Status Dosage System Date BusPIRone HCl [facility] 02504840529 10 MG Orally June 23, Active 1 tablet Twice a day 2018 Results No Known Results Summary Purpose eClinicalWorks Submission
[2018-07-14] MEDS ORDERED: Ringers Lactate 1,000 ML IV ONE (07:34)
[2018-07-14] MEDS ORDERED: LIDOCAINE 1% MPF 5 ML VIAL ONE (07:55)
[2018-07-14] MEDS ORDERED: PROPOFOL 200 MG/20 ML VIAL IV ONE (07:55)
--- NOTE | 2018-07-14 08:16 | ENDO RPT ---
[address], [address] COLONOSCOPY PROCEDURE REPORT EXAM DATE: 07/14/2018 PATIENT NAME: Ly Gomez MR #: [id number] BIRTHDATE: 1955 ATTENDING: Derick John DR STATUS: outpatient CUSTOMER EXPERIENCE STRATEGIST: Jeancarlos Montoya and Sisi Carvajal RN INDICATIONS: The patient is a 63 yr old Female here for a colonoscopy due to colon cancer screening PROCEDURE PERFORMED: Screening Colonoscopy MEDICATIONS: Per Anesthesia. ESTIMATED BLOOD LOSS: None CONSENT: The patient understands the risks and benefits of the procedure and understands that these risks include, but are not limited to: sedation, allergic reaction, infection, perforation and/or bleeding. Alternative means of evaluation and treatment include, among others: physical exam, x-rays, and/or surgical intervention. The patient elects to proceed with this endoscopic procedure. DESCRIPTION OF PROCEDURE: During intra-op preparation period all mechanical medical equipment was checked for proper function. Hand hygiene and appropriate measures for infection prevention was taken. Procedure, possible complications, alternatives including, but not limited to possibility of bleeding, perforation, tear, infection, sepsis, need for surgery, need for blood transfusion, were explained to the patient. After the risks, benefits and alternatives of the procedure were thoroughly explained, Informed consent was verified, confirmed and timeout was successfully executed by the treatment team. The patient was placed in the left lateral position. A digital rectal exam was performed and revealed no abnormalities of the rectum. After appropriate level of anesthesia, the scope was passed. The EC-[id number] ([id number]) endoscope was introduced through the anus and advanced to the cecum. The quality of the prep was inadequate. The instrument was then slowly withdrawn as the colon was fully examined. Scope withdrawal time was 5 minutes. COLON FINDINGS: Signicant solid stool burden, unable to clear - Incomplete colonoscopy. Retroflexed views revealed no abnormalities. The scope was then completely withdrawn from the patient and the procedure terminated. ADVERSE EVENTS: There were no complications. IMPRESSIONS: Signicant solid stool burden, unable to clear - Incomplete colonoscopy RECOMMENDATIONS: follow-up: office 1 week(s) RECALL: Return in 1 week(s) for Colonoscopy. 2 Day Prep for next colonoscopy Derick John DR eSigned: Derick John DR 07/14/2018 8:15 AM cc: CPT CODES: ICD9 CODES:
[2018-07-14] MEDS ORDERED: EPHEDRINE SULF 50 MG/ML VIAL ONE (08:35)
[2018-07-14 08:36] VITALS: TEMP 97.8; O2SAT 100
[2018-07-14 09:18] VITALS: BP 142/90
== END 2018-07-14 09:05 | disposition home or self-care (01) ==
LOC: OR 07:18
PROVIDERS: ATTEND Surgery
PROC: 0DJD8ZZ Inspection of Lower Intestinal Tract, Via Natural or Artificial Opening Endoscopic (ICD-10-PCS; principal; 2018-07-14 08:45)
DX: Z12.11 Encounter for screening for malignant neoplasm of colon (principal); Z86.010 Personal history of colon polyps; F41.8 Other specified anxiety disorders; E78.2 Mixed hyperlipidemia; I10 Essential (primary) hypertension; I73.9 Peripheral vascular disease, unspecified; J44.9 Chronic obstructive pulmonary disease, unspecified; F17.210 Nicotine dependence, cigarettes, uncomplicated; Z79.01 Long term (current) use of anticoagulants; Z79.899 Other long term (current) drug therapy; Z86.73 Personal history of transient ischemic attack (TIA), and cerebral infarction without residual deficits; Z86.19 Personal history of other infectious and parasitic diseases; Z95.4 Presence of other heart-valve replacement
CPT/HCPCS: 45378; J2704

== ENCOUNTER → 2018-07-21 | Day surgery (SDC) | payer OTHER ==
[~2018-07-21] MED LIST: LIDOCAINE 1% MPF 5 ML VIAL ONE; PROPOFOL 200 MG/20 ML VIAL IV ONE; Ringers Lactate 1,000 ML IV ONE
--- OUTSIDE RECORDS SUMMARY | 2018-07-21 07:34 | XMS REPORT ---
:1955 Author Organization eClinicalWorks Care Team Providers Name Role Phone Jose Enrique [facility] Provider Role Unavailable Allergies, Adverse [...] End Status Dosage System Date Date Lipitor [facility] 54234746691 10 MG Orally Active 1 tablet Once a day Gabapentin ND 84211945703 600 MG Orally Active 1 tablet 4 TIMES PER DAY Hemocyte [facility] 75809180785 324 (106 Fe) Active not defined MG Orally Oxybutynin ND 24437185380 5 MG Active 2 TABS BY Chloride MOUTH EVERY 12 HOURS Oxybutynin ND 30304472481 5 MG Orally Active 1 tablet Chloride Twice a day Omeprazole ND 38296027226 20 Active TAKE 1 CAPSULE BY MOUTH EVERY DAY Atorvastatin ND 85466691905 10 Active TAKE 1 TABLET Calcium BY MOUTH AT BEDTIME. Omeprazole [facility] 63545972634 20 MG Orally Active 1 capsule Once a day Metoprolol [facility] 36585120190 25 MG Orally Active 0.5 tablet Tartrate ONce a day with food Ventolin HFA [facility] 93026799486 108 (90 Base) Active 2 PUFF(S) MCG/ACT INHALED 4 TIMES A DAY FOR 30 DAYS Kenalog [facility] [address]-73 0.1% Active 1 application Externally to affected Three times a area day Oxybutynin [facility] 24937672593 5 Active 2 TABS BY Chloride MOUTH EVERY 12 HOURS Gabapentin [facility] 08703511955 600 Active TAKE 1 TABLET BY MOUTH FOUR TIMES DAILY Citalopram [facility] 67672021762 40 MG Orally Active 1.5 tablets Hydrobromide once a day BuPROPion HCl ER [facility] 66252518475 300 MG Orally Active 1 tab (XL) once a day Norvasc [facility] 04872498567 5 MG Orally Active 1 tablet Once a day [place] [facility] 69352539269 5-325 MG Active 1 tablet as Orally every 6 needed hrs HydrOXYzine [facility] 76082991741 50 MG Orally Active 1 capsule as Pamoate every 8 hrs needed PRN anxiety Lipitor [facility] 35240157156 10 Orally Once Active 1 tablet a day Trazodone HCl [facility] 90849618613 100 Active 1 TAB BY MOUTH TWICE DAILY Warfarin Sodium [facility] 56995510744 5 MG Orally Active not defined Triamcinolone [facility] 21866621621 0.1 Active APPLY 2-3 Acetonide TIMES DAILY TO AFFECTED AREA(S). Trazodone HCl [facility] 74659224292 100 MG Orally Active 1 tablet TWICE DAILY Results No Known Results Immunizations Vaccine Administration Date TDAP > 7 Years-Adacel Nov 21, 2017 Pneumovax Nov 21, 2017 Summary Purpose eClinicalWorks Submission
--- OUTSIDE RECORDS SUMMARY | 2018-07-21 07:34 | XMS REPORT | Continuity of Care Document ---
[...] Source Instructions Provider Date Iron/Fa/Vit DAILY Active [place] [facility] [...] Level 137 mEq/L 135 - 145 03/31 [facility] [place] [facility] Prealbumin 12.2 mg/dl 18 - 38 03/31 [facility] [place] [facility] Potassium 4.6 mEq/L 3.6 - 5.0 03/31 [facility] [place] [facility] Magnesium 2.0 mg/dL 1.8 - 2.5 03/[address] [facility] [address] [place] [facility] Glucose Level 102 mg/dL 65 - 120 03/31 [facility] . [facility] [place] [facility] Estimat 72 mL/min 90 03/31 [facility] Studies Glomerular /2017 [facility] Filtration [place] Rate Laboratory Creatinine 0.81 mg/dL 0.44 - 03/31 [facility] 1.00 [facility] [place] [facility] Chloride 97 mEq/L 101 - 111 03/31 [facility] Level /2017 [facility] [place] [facility] Carbon 35 mEq/L 21 - 31 03/31 [facility] Studies Dioxide Level /2017 [facility] [place] [facility] Calcium Level 8.9 mg/dL 8.5 - 10.5 03/31 [facility] Studies /2017 [facility] [place] [facility] Blood Urea 17 mg/dL 6 - 20 03/31 [facility]. Studies Nitrogen /2017 [facility] [place] [facility] Albumin 2.6 g/dL 3.2 - 5.5 03/31 [facility] St[facility] Studies /2017 [facility] [place] [facility] Prothrombin 28.3 9.5 - 12.5 03/31 [facility] Studies Time SECONDS [facility] [place] [facility] INR 2.38 03/31 [facility] Studies International /2017 [facility] Normalized [place] Ratio Laboratory White Blood 7.3 K/uL 4.3 - 10.9 03/31 [facility] Studies Count /2017 [facility] [place] [facility] Red Cell 13.9 % 12.1 - 03/31 [facility]. Studies Distribution 15.2 [facility] Width [place] [facility] Red Blood 3.16 M/uL 3.86 - 03/31 [facility] Studies Count 4.86 /2017 [facility] [place] [facility] Platelet 329 K/uL 152 - 406 03/31 [facility] Studies Count /2017 [facility] [place] [facility] Neutrophils % 63.8 % 41.7 - 03/31 [facility] Studies 73.7 /2017 [facility] [place] [facility] Monocytes % 13.4 % 3.3 - 12.3 03/31 [facility] St[facility] Studies /2018 [facility] [place] [facility] Mean Platelet 8.2 fL 7.6 - 11.3 03/31 [facility] Studies Volume /2018 [facility] [place] [facility] Mean 92.4 fL 80 - 100 03/31 [facility] Studies Corpuscular /2018 [facility] Volume [place] [facility] Mean 33.1 g/dL 32.0 - 03/31 [facility] Studies Corpuscular 36.0 /2017 [facility] Hemoglobin [place] Concent Laboratory Mean 30.6 pg 27.0 - 03/31 [facility] Studies Corpuscular 35.0 /2017 [facility] Hemoglobin [place] [facility] Lymphocytes % 20.1 % 15.3 - 01 [facility] Studies 44.8 /2017 [facility] [place] [facility] Hemoglobin 9.7 g/dL 12.0 - 03/31 [facility] St[facility] Studies 15.0 /2017 [facility] [place] [facility] Hematocrit 29.2 % 36.0 - 03/31 [facility] Studies 45.0 /2017 [facility] [place] [facility] Eosinophils % 1.3 % 0 - 4.4 03/31 St. Studies /2017 [facility] [place] [facility] Basophils % 1.4 % 0 - 1.3 03/31 [facility] [place] [facility] Absolute 4.6 K/uL 1.8 - 8.0 03/31 [facility] Studies Neutrophil [facility] [place] [facility] Absolute 1.0 K/uL 0.1 - 1.3 03/31 [facility] Studies Monocytes [facility] (CBC) [place] [facility] Absolute 1.5 K/uL 0.7 - 4.9 03/31 [facility] St[facility] Studies Lymphocytes [facility] (CBC) [place] [facility] Absolute 0.1 K/uL 0 - 0.5 03/31 [facility] Studies Eosinophils [facility] (CBC) [place] [facility] Absolute 0.1 K/uL 0 - 0.5 03/31 [facility] Studies Basophils [facility] (CBC) [place] [facility] Escherichia Escherichia 03/27 [facility] St[facility] y Studies Coli Coli /2016 [facility] [place] [facility] Urine WBC Urine WBC 03/25 [facility] [place] [facility] Urine Urine 03/25 [facility] Studies Squamous Squamous /2016 [facility] Epithelial Epithelial [place] Cells Cells Laboratory Urine RBC null 03/25 St[facility] [place] [facility] Urine Culture Urine 03/25 [facility] Studies Reflexed Culture /2016 [facility] Reflexed [place] [facility] Urine null 03/25 [facility] Studies Bacteria [facility] [place] [facility] Urine pH 6.5 03/25 [facility] [place] [facility] Urine 0.2 mg/dL 03/25 [facility] Studies Urobilinogen [facility] [place] [facility] Urine Total Urine Total 03/25 [facility] Studies Protein Protein [facility] [place] [facility] Urine Urine 03/25 [facility] Studies Specific Specific /2016 [facility] [place] [facility] Urine Nitrite Urine 03/25 [facility] Studies Nitrite [facility] [place] [facility] Urine Urine 03/25 [facility] Studies Leukocyte Leukocyte [facility] Esterase Esterase [place] [facility] Urine Ketones Urine 03/25 [facility] Studies Ketones [facility] [place] [facility] Urine Glucose Urine 03/25 [facility] Studies Glucose [facility] [place] [facility] Urine Color Urine Color 03/25 [facility] Studies [facility] [place] [facility] Urine Blood Urine Blood 03/25 [facility] Studies [facility] [place] [facility] Urine Urine 03/25 [facility] Studies Bilirubin Bilirubin [facility] [place] [facility] Urine Urine 03/25 [facility] Studies Appearance Appearance [facility] [place] [facility]olog Enterococcus Enterococcu 03/24 [facility] St[facility] y Studies Faecalis s Faecalis [facility] [place] [facility] Phosphorus 3.1 mg/dL 2.5 - 4.3 03/21 [facility] Studies Level /2016 [facility] [place] Vital Signs Vital Sign Value Date Comments Source Temperature Oral (F) 97.2 F 03/31/2017 [facility] [place] Heart Rate 75 03/31/2017 [facility] [place] Respitory Rate 16 03/31/2017 [facility] [place] Systolic (mm Hg) 112 03/31/2017 [facility] [place] Diastolic (mm Hg) 53 03/31/[address] [facility] [place] Height 65 03/26/2017 [facility] [place] Weight 135 03/26/2017 [facility] [place] Encounters Location Location Encounter Encounter Reason Attending ADM DC Status Source Details Type Number For Provider Date Date Visit [id number]20 03[facility]24 [facility] [place] [facility] [id number] [facility]/24 [facility] Procedures Procedure Code Date Perfomer Comments Source [place] Count [id number] 03/25/2017 DOC Bill [id number] 03/25/2017 [facility] [place] Count [id number] 03/22/2017 DOC Bill [id number] 03/22/2017 DOC Bill HIP BIOMET BIPOLAR [id number] 03/21/2017 [place] [facility] [place] [facility] Rodrigezt Pelvis [id number] 03/21/2017 DOC Bill Hip Right 2 View [id number] 03/20/2017 DOC Bill Chest Single View [id number] 03/20/2017 DOC Bill Pelvis [id number] 03/20/2017 [facility]
--- OUTSIDE RECORDS SUMMARY | 2018-07-21 07:34 | XMS REPORT ---
:1955 [facility] [place] [address] Care Team Providers Name Role Phone Unavailable Unavailable Unavailable Problems This patient has no known problems. Allergies, Adverse Reactions, Alerts This patient has no known allergies or adverse reactions. Medications This patient has no known medications.
--- OUTSIDE RECORDS SUMMARY | 2018-07-21 07:34 | XMS REPORT ---
[...] End Status Dosage System Date Date Atorvastatin [facility] 31398049457 10 MG Orally Active 1 tablet Calcium Once a day Triamcinolone [facility] 45622520032 0.1 Externally Active 1 application Acetonide 2-3 times a day to affected area Results No Known Results Summary Purpose eClinicalWorks Submission
--- OUTSIDE RECORDS SUMMARY | 2018-07-21 07:35 | XMS REPORT ---
[...] End Status Dosage System Date Date Citalopram [facility] 88936511102 40 MG Orally Dec 16, Active 1 tablet Hydrobromide Once a day 2017 with 20mg=60mg Citalopram [facility] 02200369254 20 MG Orally Dec 16, Active 1 tablet Hydrobromide Once a day 2017 with 40mg=60mg Results No Known Results Summary Purpose eClinicalWorks Submission
--- OUTSIDE RECORDS SUMMARY | 2018-07-21 07:35 | XMS REPORT ---
[...] End Status Dosage System Date Date Norvasc [facility] 79767453322 5 MG Orally Active 1 tablet Once a day Oxybutynin [facility] 61112801832 5 MG Active 2 TABS BY Chloride MOUTH EVERY 12 HOURS Citalopram [facility] 58830764314 40 MG Orally Active 1.5 tablets Hydrobromide once a day Omeprazole [facility] 51787798625 20 Active TAKE 1 CAPSULE BY MOUTH EVERY DAY HydrOXYzine [facility] 30957232654 50 MG Orally Active 1 capsule as Pamoate every 8 hrs needed PRN anxiety Hemocyte [facility] 82753827685 324 (106 Fe) Active not defined MG Orally Warfarin Sodium [facility] 43588291537 5 MG Orally Active 1 tab once daily Oxybutynin [facility] 08692004871 5 MG Orally Active 1 tablet Chloride Twice a day Trazodone HCl [facility] 28270347020 100 Active 1 TAB BY MOUTH TWICE DAILY Metoprolol [facility] 12776616187 25 MG Orally Active 0.5 tablet Tartrate ONce a day with food Gabapentin [facility] 25668846617 600 Active TAKE 1 TABLET BY MOUTH FOUR TIMES DAILY [place] [facility] 49397355592 5-325 MG Active 1 tablet as Orally every 6 needed hrs Gabapentin [facility] 32193562461 600 MG Orally Active 1 tablet 4 TIMES PER DAY Ventolin HFA [facility] 09995505069 108 (90 Base) Active 2 PUFF(S) MCG/ACT INHALED 4 TIMES A DAY FOR 30 DAYS Atorvastatin [facility] 41942065490 10 MG Orally Active 1 tablet Calcium Once a day Trazodone HCl [facility] 60982315791 100 MG Orally Active 1 tablet TWICE DAILY BuPROPion HCl ER [facility] 55286130831 300 MG Orally Active 1 tab (XL) once a day Triamcinolone [facility] 69864057948 0.1 Externally Active 1 application Acetonide 2-3 times a to affected day area Omeprazole [facility] 52412864800 20 MG Orally Active 1 capsule Once a day Lipitor [facility] 91754198088 10 Orally Once Active 1 tablet a day Kenalog [facility] [address]-36 0.1% Active 1 application Externally to affected Three times a area day Oxybutynin [facility] 90490909709 5 Active 2 TABS BY Chloride MOUTH EVERY 12 HOURS Lipitor [facility] 50846813091 10 MG Orally Active 1 tablet Once a day Results No Known Results Summary Purpose eClinicalWorks Submission
--- OUTSIDE RECORDS SUMMARY | 2018-07-21 07:35 | XMS REPORT ---
[...] Medications Results No Known Results Summary Purpose [employer] Submission
--- OUTSIDE RECORDS SUMMARY | 2018-07-21 07:35 | XMS REPORT ---
[...] Stress incontinence N39.3 Active Problem Atherosclerosis of [place] artery of I70.211 Active right lower extremity [...] Start End Date Status Dosage Date Spinosad [facility] 67322609034 0.9 % Externally Apr 11, Apr 12, Active apply to once 2018 2018 hair and scalp, leave for 10 minutes. Rinse well. May repeat in 1 week if needed Results No Known Results Summary Purpose [employer] Submission
--- OUTSIDE RECORDS SUMMARY | 2018-07-21 07:35 | XMS REPORT ---
:1955 Author Organization eClinicalWorks Care Team Providers Name Role Phone Walthall Tasha Provider Role Unavailable Allergies No Known [...]
--- OUTSIDE RECORDS SUMMARY | 2018-07-21 07:35 | XMS REPORT ---
[...] Medications Results No Known Results Summary Purpose [employer] Submission
--- OUTSIDE RECORDS SUMMARY | 2018-07-21 07:35 | XMS REPORT ---
[...] End Date Status Dosage Date Warfarin Sodium [facility] 48467047438 5 MG Orally once Active 1 tab daily Results No Known Results Summary Purpose eClinicalWorks Submission
--- OUTSIDE RECORDS SUMMARY | 2018-07-21 07:35 | XMS REPORT ---
:1955 Author Organization eClinicalWorks Care Team Providers Name Role Phone Jose Enrique Edvin Provider Role Unavailable Allergies No Known Allergies [...] Medications Results No Known Results Summary Purpose [employer] Submission
--- OUTSIDE RECORDS SUMMARY | 2018-07-21 07:35 | XMS REPORT ---
[...] with anxiety F41.8 Active Problem Atherosclerosis of [place] artery of I70.211 Active right lower extremity with intermittent claudication Assessment Hyperlipidemia, mixed E78.2 Active Problem Benign hypertension I10 Active Problem Lumbar disc herniation M51.26 Active Problem Depression with anxiety F41.8 Active Problem Chronic back pain M54.9 Active Problem Hypomagnesemia E83.42 Active Problem Peptic ulcer disease K27.9 Active Assessment Atherosclerosis of [place] artery of I70.211 Active right lower extremity with intermittent claudication Problem History of cerebrovascular accident Z86.73 Active Problem Spinal stenosis of lumbar region, M48.061 Active unspecified whether neurogenic claudication present Problem Peripheral vascular disease I73.9 Active Problem Incontinence of urine R32 Active Medications Medication Code Code Instructions Start End Status Dosage System Date Date Gabapentin [facility] 51709365248 600 MG Orally Active 1 tablet 4 TIMES PER DAY [place] [facility] 92638341365 5-325 MG Active 1 tablet as Orally every 6 needed hrs Kenalog [facility] [address]-70 0.1% Active 1 application Externally to affected Three times a area day Oxybutynin [facility] 72687457349 5 MG Orally Active 1 tablet Chloride Twice a day Omeprazole [facility] 59723534449 20 Active TAKE ONE CAPSULE BY MOUTH EVERY DAY Warfarin Sodium [facility] 79093411630 5 Orally once Active 1 tab daily Warfarin Sodium [facility] 93075989497 5 MG Orally Active not defined Trazodone HCl [facility] 48405734956 100 MG Orally Active 1 tablet TWICE DAILY Omeprazole [facility] 73366923452 20 Active TAKE 1 CAPSULE BY MOUTH EVERY DAY Hemocyte [facility] 64838893947 324 (106 Fe) Active not defined MG Orally Ventolin HFA [facility] 77418981052 108 (90 Base) Active 2 puffs as MCG/ACT needed Inhalation every 6 hrs BuPROPion HCl ER [facility] 56064229365 300 Orally Active 1 tab (XL) once a day Omeprazole [facility] 92193788098 20 MG Orally Active 1 capsule Once a day Norvasc [facility] 25951913625 5 MG Orally Active 1 tablet Once a day Lipitor [facility] 26517346965 10 MG Orally Active 1 tablet Once a day Citalopram [facility] 95814047980 40 MG Orally Active 1 tablet with Hydrobromide Once a day 20mg=60mg Triamcinolone [facility] 80988957429 0.1 Externally Active 1 application Acetonide 2-3 times a to affected day area Ventolin HFA [facility] 39802523785 108 (90 Base) Active 2 PUFF(S) MCG/ACT INHALED 4 TIMES A DAY FOR 30 DAYS HydrOXYzine [facility] 72042992820 50 MG Orally Active 1 capsule as Pamoate every 8 hrs needed PRN anxiety Metoprolol [facility] 10444012782 25 MG Orally Active 0.5 tablet Tartrate ONce a day with food Oxybutynin [facility] 69385546001 5 Active 2 TABS BY Chloride MOUTH EVERY 12 HOURS Atorvastatin [facility] 70157730429 10 MG Orally Active 1 tablet Calcium Once a day Gabapentin [facility] 92618628159 600 Active TAKE 1 TABLET BY MOUTH FOUR TIMES DAILY. BuPROPion HCl ER [facility] 07819268274 300 MG Orally Active 1 tab (XL) once a day Results No Known Results Summary Purpose eClinicalWorks Submission
--- OUTSIDE RECORDS SUMMARY | 2018-07-21 07:36 | XMS REPORT ---
[...] Stress incontinence N39.3 Active Problem Atherosclerosis of [place] artery of I70.211 Active right lower extremity [...] Status Dosage System Date Date Ventolin HFA [facility] 44963454169 108 (90 Base) Active 2 puffs as MCG/ACT needed Inhalation every 6 hrs Hemocyte [facility] 28907261207 324 (106 Fe) Active not defined MG Orally Gabapentin [place] 16277533228 600 MG Orally Active 1 tablet 4 TIMES PER DAY HydrOXYzine [place] 90475015355 50 MG Orally Active 1 capsule as Pamoate every 8 hrs needed PRN anxiety BuPROPion HCl [place] 39133829745 300 MG Orally Active 1 tab ER (XL) once a day BuPROPion HCl [place] 75325396011 300 Orally Active 1 tab ER (XL) once a day Omeprazole [place] 27091403311 20 Active TAKE 1 CAPSULE BY MOUTH EVERY DAY Omeprazole [place] 35752113615 20 MG Orally Active 1 capsule Once a day Oxybutynin [facility] 48113383930 5 MG Orally Active 1 tablet Chloride Twice a day Ventolin HFA [facility] 36465214036 108 (90 Base) Active 2 PUFF(S) MCG/ACT INHALED 4 TIMES A DAY FOR 30 DAYS Trazodone HCl [facility] 91990080958 100 MG Orally Active 1 tablet TWICE DAILY Gabapentin [facility] 99188265052 600 Active TAKE 1 TABLET BY MOUTH FOUR TIMES DAILY. Warfarin Sodium [facility] 30934878311 5 Orally once Active 1 tab daily Atorvastatin [facility] 05758651816 10 MG Orally Active 1 tablet Calcium Once a day Triamcinolone [facility] 81559617750 0.1 Externally Active 1 application Acetonide 2-3 times a to affected day area Kenalog [facility] [address]-97 0.1% Active 1 application Externally to affected Three times a area day [place] [facility] 46010499063 5-325 MG Active 1 tablet as Orally every 6 needed hrs Norvasc [facility] 43784838665 5 MG Orally Active 1 tablet Once a day Oxybutynin [facility] 60260857294 5 Active TAKE 2 Chloride TABLETS BY MOUTH EVERY 12 HOURS. Citalopram [facility] 52515021436 40 MG Orally Active 1 tablet with Hydrobromide Once a day 20mg=60mg Warfarin Sodium [facility] 89728823442 5 MG Orally Active not defined Metoprolol [facility] 59049792584 50 MG Orally Inactive 0.5 tablet Tartrate Every other with food day Lipitor [facility] 04119129099 10 MG Orally Active 1 tablet Once a day Results No Known Results Summary Purpose eClinicalWorks Submission
--- OUTSIDE RECORDS SUMMARY | 2018-07-21 07:36 | XMS REPORT ---
:1955 Author Organization eClinicalWorks Care Team Providers Name Role Phone Jose Enrique [facility] Provider Role Unavailable Allergies, Adverse Reactions, Alerts [...] skin L81.9 Active lesion Problem Atherosclerosis of [place] artery of I70.211 Active right lower extremity [...] Status Dosage System Date Date Ventolin HFA [facility] 11227718323 108 (90 Base) Active 2 puffs as MCG/ACT needed Inhalation every 6 hrs Oxybutynin [facility] 73330509435 5 MG Orally Active 1 tablet Chloride Twice a day Gabapentin [place] 91103193442 600 MG Orally Active 1 tablet 4 TIMES PER DAY BuPROPion HCl ER [facility] 54877921889 300 MG Orally Active 1 tab (XL) once a day Citalopram [facility] 91773310256 40 MG Orally Active 1 tablet with Hydrobromide Once a day 20mg=60mg Warfarin Sodium [facility] 23205861219 5 Orally once Active 1 tab daily Omeprazole [facility] 86215097164 20 Active TAKE 1 CAPSULE BY MOUTH EVERY DAY Omeprazole [facility] 47634852700 20 MG Orally Active 1 capsule Once a day [place] [facility] 15816703026 5-325 MG Active 1 tablet as Orally every 6 needed hrs BuPROPion HCl ER [facility] 81821405715 300 Orally Active 1 tab (XL) once a day Lipitor [facility] 00164442847 10 MG Orally Active 1 tablet Once a day Oxybutynin [facility] 25663246321 5 Active TAKE 2 Chloride TABLETS BY MOUTH EVERY 12 HOURS. Ventolin HFA [facility] 88986966002 108 (90 Base) Active 2 PUFF(S) MCG/ACT INHALED 4 TIMES A DAY FOR 30 DAYS Atorvastatin [facility] 06704666516 10 MG Orally Active 1 tablet Calcium Once a day Triamcinolone [facility] 76819400721 0.1 Externally Active 1 application Acetonide 2-3 times a to affected day area Kenalog [facility] [address]-51 0.1% Active 1 application Externally to affected Three times a area day Hemocyte [facility] 25628157123 324 (106 Fe) Active not defined MG Orally Norvasc [facility] 14979727108 5 MG Orally Active 1 tablet Once a day Gabapentin [facility] 78362871904 600 Active TAKE 1 TABLET BY MOUTH FOUR TIMES DAILY. HydrOXYzine [facility] 01608832432 50 MG Orally Active 1 capsule as Pamoate every 8 hrs needed PRN anxiety Warfarin Sodium [facility] 71172905346 5 MG Orally Active not defined Trazodone HCl [facility] 76466086440 100 MG Orally Active 1 tablet TWICE DAILY Metoprolol [facility] 68261755233 25 MG Orally Active 0.5 tablet Tartrate ONce a day with food Results No Known Results Summary Purpose eClinicalWorks Submission
--- OUTSIDE RECORDS SUMMARY | 2018-07-21 07:36 | XMS REPORT ---
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 Active Assessment Atherosclerosis of [place] artery of I70.211 Active right lower extremity [...] for alcohol use disorder Problem Atherosclerosis of [place] artery of I70.211 Active right lower extremity [...] Status Dosage System Date Date Warfarin Sodium [facility] 68603675482 5 MG Orally Active not defined Trazodone HCl [facility] 97857413764 100 MG Orally Active 1 tablet TWICE DAILY Metoprolol [facility] 78316345834 25 MG Orally Active 0.5 tablet Tartrate ONce a day with food Gabapentin [facility] 88861533894 600 MG Orally Active 1 tablet 4 TIMES PER DAY Ventolin HFA [facility] 41044461298 108 (90 Base) Active 2 puffs as MCG/ACT needed Inhalation every 6 hrs Oxybutynin [facility] 74876110452 5 MG Orally Active 1 tablet Chloride Twice a day BuPROPion HCl ER [facility] 37136505240 300 MG Orally Active 1 tab (XL) once a day Lipitor [facility] 66187010870 10 MG Orally Active 1 tablet Once a day Norvasc [facility] 78524869441 5 MG Orally Active 1 tablet Once a day Atorvastatin [facility] 85552292583 10 MG Orally Active 1 tablet Calcium Once a day HydrOXYzine [facility] 77441837319 50 MG Orally Active 1 capsule as Pamoate every 8 hrs needed PRN anxiety Memantine HCl [facility] 73962601741 10 MG Orally Active 1 tablet Twice a day Citalopram [facility] 90554880810 40 MG Orally Active 1 tablet with Hydrobromide Once a day 20mg=60mg Hemocyte [facility] 86497568532 324 (106 Fe) Active not defined MG Orally Triamcinolone [facility] 16984804945 0.1 Externally Active 1 application Acetonide 2-3 times a to affected day area [place]oda [facility] 97003012488 5-325 MG Active 1 tablet as Orally every 6 needed hrs Omeprazole [facility] 75774210552 20 MG Orally Active 1 capsule Once a day Kenalog [facility] [address]-90 0.1% Active 1 application Externally to affected Three times a area day Results No Known Results Summary Purpose eClinicalWorks Submission
--- OUTSIDE RECORDS SUMMARY | 2018-07-21 07:36 | XMS REPORT ---
[...] Stress incontinence N39.3 Active Problem Atherosclerosis of [place] artery of I70.211 Active right lower extremity [...] End Date Status Dosage System Date Metoprolol [facility] 44573808682 25 MG Orally Active 1 tablet Tartrate Once a day with food Results No Known Results Summary Purpose eClinicalWorks Submission
--- OUTSIDE RECORDS SUMMARY | 2018-07-21 07:36 | XMS REPORT ---
[...] Stress incontinence N39.3 Active Problem Atherosclerosis of [place] artery of I70.211 Active right lower extremity [...]
--- OUTSIDE RECORDS SUMMARY | 2018-07-21 07:36 | XMS REPORT ---
[...] J44.9 Active disease (COPD) Problem Atherosclerosis of [place] artery of I70.211 Active right lower extremity [...] 22.0-22.9, adult Z68.22 Active Assessment Atherosclerosis of [place] artery of I70.211 Active right lower extremity [...] [facility] 81584226684 10 MG Orally Active 1 tablet Calcium Once a day Ventolin HFA [facility] 59863458692 108 (90 Base) Active 2 PUFF(S) MCG/ACT INHALED 4 TIMES A DAY FOR 30 DAYS Warfarin Sodium [facility] 73234170063 5 MG Orally Active not defined Gabapentin [facility] 08542078385 600 MG Orally Active 1 tablet 4 TIMES PER DAY Oxybutynin [facility] 77198318290 5 Active TAKE 2 Chloride TABLETS BY MOUTH EVERY 12 HOURS. Lipitor [facility] 88748701165 10 MG Orally Active 1 tablet Once a day BuPROPion HCl ER [facility] 27550082540 300 MG Orally Active 1 tab (XL) once a day Omeprazole [facility] 10971353552 20 Active TAKE 1 CAPSULE BY MOUTH EVERY DAY Ventolin HFA [facility] 08741088637 108 (90 Base) Active 2 puffs as MCG/ACT needed Inhalation every 6 hrs Metoprolol [facility] 83877186846 25 MG Orally Active 0.5 tablet Tartrate ONce a day with food Gabapentin [facility] 73230075952 600 Active TAKE 1 TABLET BY MOUTH FOUR TIMES DAILY. Citalopram [facility] 89479433983 40 MG Orally Active 1 tablet with Hydrobromide Once a day 20mg=60mg Norvasc [facility] 72914092718 5 MG Orally Active 1 tablet Once a day Hemocyte [facility] 08145992872 324 (106 Fe) Active not defined MG Orally Kenalog [facility] [address]-98 0.1% Active 1 application Externally to affected Three times a area day Warfarin Sodium [facility] 20798505279 5 Orally once Active 1 tab daily BuPROPion HCl ER [facility] 54992060009 300 Orally Active 1 tab (XL) once a day Oxybutynin [facility] 71692691626 5 MG Orally Active 1 tablet Chloride Twice a day HydrOXYzine [facility] 05500629787 50 MG Orally Active 1 capsule as Pamoate every 8 hrs needed PRN anxiety [place] [facility] 85088998735 5-325 MG Active 1 tablet as Orally every 6 needed hrs Triamcinolone [facility] 88701534432 0.1 Externally Active 1 application Acetonide 2-3 times a to affected day area Omeprazole [facility] 46038503830 20 MG Orally Active 1 capsule Once a day Trazodone HCl [facility] 64696706549 100 MG Orally Active 1 tablet TWICE DAILY Results No Known Results Summary Purpose eClinicalWorks Submission
--- OUTSIDE RECORDS SUMMARY | 2018-07-21 07:37 | XMS REPORT ---
[...] disorder without prior episode Problem Atherosclerosis of [place] artery of I70.211 Active right lower extremity [...] Status Dosage System Date Date Ventolin HFA [facility] 84900828704 108 (90 Base) Active 2 puffs as MCG/ACT needed Inhalation every 6 hrs Hemocyte [facility] 30668262999 324 (106 Fe) Active not defined MG Orally Omeprazole [place] 09983124189 20 MG Orally Active 1 capsule Once a day Citalopram [facility] 49825087543 40 MG Orally Active 1 tablet with Hydrobromide Once a day 20mg=60mg Metoprolol [place] 02866271303 25 MG Orally Active 0.5 tablet Tartrate ONce a day with food Oxybutynin [facility] 59395841359 5 MG Orally Active 1 tablet Chloride Twice a day Triamcinolone [facility] 95384851142 0.1 Externally Active 1 application Acetonide 2-3 times a to affected day area Warfarin Sodium [facility] 33777010414 5 MG Orally Active not defined Trazodone HCl [facility] 21320154417 100 MG Orally Active 1 tablet TWICE DAILY Memantine HCl [facility] 91870154189 10 MG Orally Active 1 tablet Twice a day Norvasc [facility] 88230770390 5 MG Orally Active 1 tablet Once a day Atorvastatin [facility] 03764334412 10 MG Orally Active 1 tablet Calcium Once a day HydrOXYzine [facility] 61867014067 50 MG Orally Active 1 capsule as Pamoate every 8 hrs needed PRN anxiety BusPIRone HCl [facility] 61024279796 10 MG Orally March Active 1 tablet Twice a day 2018 Lipitor [facility] 64826599850 10 MG Orally Active 1 tablet Once a day BuPROPion HCl ER [facility] 44859898887 300 MG Orally Active 1 tab (XL) once a day Gabapentin [facility] 42576975246 600 MG Orally Active 1 tablet 4 TIMES PER DAY [place] [facility] 06753794008 5-325 MG Active 1 tablet as Orally every 6 needed hrs Kenalog [facility] [address]-76 0.1% Active 1 application Externally to affected Three times a area day Results No Known Results Summary Purpose eClinicalWorks Submission
--- OUTSIDE RECORDS SUMMARY | 2018-07-21 07:37 | XMS REPORT ---
[...] disorder without prior episode Problem Atherosclerosis of [place] artery of I70.211 Active right lower extremity [...]
--- OUTSIDE RECORDS SUMMARY | 2018-07-21 07:37 | XMS REPORT ---
[...] Hyperlipidemia, mixed E78.2 Active Assessment Atherosclerosis of [place] artery of I70.211 Active right lower extremity [...] of fall Z91.81 Active Problem Atherosclerosis of [place] artery of I70.211 Active right lower extremity [...] End Status Dosage System Date Date Triamcinolone [facility] 80579177474 0.1 Externally Active 1 application Acetonide 2-3 times a to affected day area Omeprazole [facility] 37783676470 20 MG Orally Active 1 capsule Once a day Shawnee [facility] 99079609006 5-325 MG Active 1 tablet as Orally every 6 needed hrs Lipitor [facility] 36188335127 10 MG Orally Active 1 tablet Once a day BuPROPion HCl ER [facility] 50277226482 300 MG Orally Active 1 tab (XL) once a day Metoprolol [facility] 94468078817 25 MG Orally Active 0.5 tablet Tartrate ONce a day with food Atorvastatin [facility] 84259497251 10 MG Orally Active 1 tablet Calcium Once a day Citalopram [facility] 98290477904 40 MG Orally Active 1 tablet with Hydrobromide Once a day 20mg=60mg Kenalog [facility] [address]-65 0.1% Active 1 application Externally to affected Three times a area day Trazodone HCl [facility] 83834103127 100 MG Orally Active 1 tablet TWICE DAILY Oxybutynin [facility] 91745979055 5 MG Orally Active 1 tablet Chloride Twice a day Memantine HCl [facility] 29150494978 10 MG Orally Active 1 tablet Twice a day Norvasc [facility] 22661661890 5 MG Orally Active 1 tablet Once a day Warfarin Sodium [facility] 40408297570 5 MG Orally Active not defined BusPIRone HCl [facility] 95505843765 10 MG Orally May Active 1 tablet Twice a day 2018 Bevespi [facility] 85438441107 9-4.8 MCG/ACT June Active 2 puffs Aerosphere Inhalation , Twice a day 2018 2019 HydrOXYzine [facility] 19718617929 50 MG Orally Active 1 capsule as Pamoate every 8 hrs needed PRN anxiety Hemocyte [facility] 47553649809 324 (106 Fe) Active not defined MG Orally Gabapentin [facility] 56131744166 600 MG Orally Active 1 tablet 4 TIMES PER DAY Ventolin HFA [facility] 82542076480 108 (90 Base) Active 2 puffs as MCG/ACT needed Inhalation every 6 hrs Results No Known Results Summary Purpose eClinicalWorks Submission
--- OUTSIDE RECORDS SUMMARY | 2018-07-21 07:37 | XMS REPORT ---
[...] disorder without prior episode Problem Atherosclerosis of [place] artery of I70.211 Active right lower extremity [...] Date Status Dosage System Date BusPIRone HCl [facility] 00680751577 10 MG Orally June 23, Active 1 tablet Twice a day 2018 Results No Known Results Summary Purpose eClinicalWorks Submission
--- OUTSIDE RECORDS SUMMARY | 2018-07-21 07:37 | XMS REPORT ---
[...] disorder without prior episode Problem Atherosclerosis of [place] artery of I70.211 Active right lower extremity [...] Start End Status Dosage System Date Date HydrOXYzine HCl [facility] 35299419595 25 MG Orally July 19, Active 1 tablet every 8 hrs 2019 as needed Results No Known Results Summary Purpose eClinicalWorks Submission
--- NOTE | 2018-07-21 09:38 | ENDO RPT ---
[address], [address] COLONOSCOPY PROCEDURE REPORT EXAM DATE: 07/21/2018 PATIENT NAME: Ly Gomez MR #: [id number] BIRTHDATE: 1955 ATTENDING: Derick John DR STATUS: outpatient [facility] COORDINATOR: Whit Ramsey RN, Jeancarlos Montoya, and Doug Man RN INDICATIONS: The patient is a 63 yr old Female here for a colonoscopy due to colon cancer screening PROCEDURE PERFORMED: Colonoscopy with biopsy - cold polypectomy MEDICATIONS: Per Anesthesia. ESTIMATED BLOOD LOSS: None CONSENT: The patient understands the risks and benefits of the procedure and understands that these risks include, but are not limited to: sedation, allergic reaction, infection, perforation and/or bleeding. Alternative means of evaluation and treatment include, among others: physical exam, x-rays, and/or surgical intervention. The patient elects to proceed with this endoscopic procedure. DESCRIPTION OF PROCEDURE: During intra-op preparation period all mechanical medical equipment was checked for proper function. Hand hygiene and appropriate measures for infection prevention was taken. Procedure, possible complications, alternatives including, but not limited to possibility of bleeding, perforation, tear, infection, sepsis, need for surgery, need for blood transfusion, were explained to the patient. After the risks, benefits and alternatives of the procedure were thoroughly explained, Informed consent was verified, confirmed and timeout was successfully executed by the treatment team. The patient was placed in the left lateral position. A digital rectal exam was performed and revealed internal hemorrhoids. After appropriate level of anesthesia, the scope was passed. The [id number] ([id number]) endoscope was introduced through the anus and advanced to the cecum, which was identified by both the appendix and ileocecal valve. The quality of the prep was poor. The instrument was then slowly withdrawn as the colon was fully examined. Scope withdrawal time was 15 minutes. COLON FINDINGS: A diffuse linear circumferential patch of abnormal mucosa was found in the left colon. The mucosa was erythematous and had petechiae. A biopsy of the area was performed using cold forceps. One medium sized in sigmoid, and one small polypoid shaped and smooth semi-pedunculated polyps with friable surfaces were found in the left colon. A polypectomy was performed using snare cautery. The resection was complete, the polyp tissue was completely retrieved and sent to histology. Retroflexed views revealed no abnormalities. The scope was then completely withdrawn from the patient and the procedure terminated. ADVERSE EVENTS: There were no complications. IMPRESSIONS: 1. Diffuse linear circumferential abnormal mucosa was found in the left colon; The mucosa was erythematous and had petechiae; biopsy of the area was performed using cold forceps 2. Two medium sized small semi-pedunculated polyps were found in the sigmoid colon and left colon; polypectomy was performed using snare cautery RECOMMENDATIONS: 1. avoid NSAIDS for 2 weeks 2. await biopsy results 3. fiber rich diet 4. follow-up: office 2 week(s) 5. hemorrhoidal hygiene 6. yearly hemoccult starting in 4 years RECALL: Return in 2 year(s) for Colonoscopy, pending biopsy results. Pending biopsy Derick John DR eSigned: Derick John DR 07/21/2018 9:37 AM cc: CPT CODES: ICD9 CODES: PATIENT NAME: Ly Gomez MR#: [id number]
[2018-07-21 10:19] VITALS: BP 134/65; TEMP 97.7; O2SAT 96
== END ==
LOC: OR 07:31
PROVIDERS: ATTEND Surgery
PROC: 0DBM8ZX Excision of Descending Colon, Via Natural or Artificial Opening Endoscopic, Diagnostic (ICD-10-PCS; 2018-07-21)
PROC: 0DBN8ZX Excision of Sigmoid Colon, Via Natural or Artificial Opening Endoscopic, Diagnostic (ICD-10-PCS; principal; 2018-07-21 09:00)
DX: Z12.11 Encounter for screening for malignant neoplasm of colon (principal); D12.5 Benign neoplasm of sigmoid colon; K63.5 Polyp of colon; K92.1 Melena; E78.2 Mixed hyperlipidemia; I10 Essential (primary) hypertension; J44.9 Chronic obstructive pulmonary disease, unspecified; F41.8 Other specified anxiety disorders; F17.210 Nicotine dependence, cigarettes, uncomplicated; Z79.01 Long term (current) use of anticoagulants; Z79.899 Other long term (current) drug therapy; Z86.19 Personal history of other infectious and parasitic diseases; Z95.4 Presence of other heart-valve replacement
CPT/HCPCS: 45385; 45380; 88305; J2704 ×2

== ENCOUNTER 2018-10-06 10:05 | Emergency (ER) | payer OTHER ==
--- OUTSIDE RECORDS SUMMARY | 2018-10-06 10:07 | XMS REPORT ---
[...] End Date Status Dosage Date Warfarin Sodium [facility] 63520507984 5 MG Orally once Active 1 tab daily Results No Known Results Summary Purpose eClinicalWorks Submission
--- OUTSIDE RECORDS SUMMARY | 2018-10-06 10:07 | XMS REPORT ---
[...] End Status Dosage System Date Date Atorvastatin [facility] 03493608946 10 MG Orally Active 1 tablet Calcium Once a day Triamcinolone [facility] 88227544080 0.1 Externally Active 1 application Acetonide 2-3 times a day to affected area Results No Known Results Summary Purpose eClinicalWorks Submission
--- OUTSIDE RECORDS SUMMARY | 2018-10-06 10:07 | XMS REPORT ---
:1955 [facility] Address [address] [place] [address] Care Team Providers Name Role Phone Unavailable Unavailable Unavailable Problems This patient has no known problems. Allergies, Adverse Reactions, Alerts This patient has no known allergies or adverse reactions. Medications This patient has no known medications.
--- OUTSIDE RECORDS SUMMARY | 2018-10-06 10:07 | XMS REPORT ---
:1955 Author Organization eClinicalWorks Care Team Providers Name Role Phone [place] Tasha Provider Role Unavailable Allergies No Known [...]
--- OUTSIDE RECORDS SUMMARY | 2018-10-06 10:07 | XMS REPORT | Continuity of Care Document ---
:1955 Author Organization [facility] Care Team Providers Name Role Phone [facility] Unavailable Unavailable Problems Problem Status Onset Classification Date Comments [...] Source Instructions Provider Date Iron/Fa/Vit DAILY [facility]C [facility]18 [facility] [place] Atorvastatin AT BEDTIME Active [facility] Calcium [facility]18 [facility] [place] [...] For Pain [place] Allergies, Adverse Reactions, Alerts No Known Medication Allergies Immunizations No Data Provided for This Section Results Order Name Results Value Reference Date Interpretation Comments Source Range Laboratory Sodium Level 137 135 - 145 03/[address] [facility] [address] /2018 [facility] [place] [facility] Prealbumin 12.2 18 - 38 03/[address] [facility] [address] /2017 [facility] [place] [facility] Potassium 4.6 3.6 - 5.0 03/[address] [facility] [address] Level /2018 [facility] [place] [facility] Magnesium 2.0 1.8 - 2.5 03/[address] [facility] [address] Studies Level /2018 [facility] [place] Laboratory Glucose Level 102 65 - 120 03/[address] [facility] [address] /2018 [facility] [place] [facility] Estimat 72 90 03/[address] [facility] Studies Glomerular /2017 [facility] Filtration [place] Rate Laboratory Creatinine 0.81 0.44 - 03/31 [facility]. Studies 1.00 /2017 [facility] [place] [facility] Chloride 97 101 - 111 03/31 [facility]. Studies Level /2017 [facility] [place] [facility] Carbon 35 21 - 31 03/31 [facility]. Studies Dioxide Level /2017 [facility] [place] [facility] Calcium Level 8.9 8.5 - 10.5 03/31 [facility]. Studies /2017 [facility] [place] Laboratory Blood Urea 17 6 - 20 03/31 [facility] Studies Nitrogen /2017 [facility] [place] Laboratory Albumin 2.6 3.2 - 5.5 03/31 [facility]. Studies /2017 [facility] [place] Laboratory Prothrombin 28.3 9.5 - 12.5 03/31 [facility] Studies Time /2017 [facility] [place] Laboratory INR 2.38 03/31 [facility]. Studies International /2017 [facility] Normalized [place] Ratio Laboratory White Blood 7.3 4.3 - 10.9 03/31 [facility] Studies Count /2017 [facility] [place] Laboratory Red Cell 13.9 12.1 - 03/31 [facility] Studies Distribution 15.2 /2017 [facility] Width [place] Laboratory Red Blood 3.16 3.86 - 03/31 [facility] Studies Count 4.86 /2017 [facility] [place] Laboratory Platelet 329 152 - 406 03/31 [facility]. Studies Count /2017 [facility] [place] Laboratory Neutrophils % 63.8 41.7 - 03/31 [facility]. Studies 73.7 /2017 [facility] [place] Laboratory Monocytes % 13.4 3.3 - 12.3 03/31 [facility]. Studies /2018 [facility] [place] Laboratory Mean Platelet 8.2 7.6 - 11.3 03/31 [facility]. Studies Volume /2018 [facility] [place] Laboratory Mean 92.4 80 - 100 03/31 [facility]. Studies Corpuscular /2017 [facility] Volume [place] Laboratory Mean 33.1 32.0 - 03/31 [facility] Studies Corpuscular 36.0 [facility] Hemoglobin [place] Concent Laboratory Mean 30.6 27.0 - 03/31 [facility]. Studies Corpuscular 35.0 /2017 [facility] Hemoglobin [place] Laboratory Lymphocytes % 20.1 15.3 - 03/[address] [facility] Studies 44.8 /2017 [facility] [place] Laboratory Hemoglobin 9.7 12.0 - 03/[address] [facility] [address] Studies 15.0 /2017 [facility] [place] Laboratory Hematocrit 29.2 36.0 - 03/[address] [facility] [address] Studies 45.0 /2017 [facility] [place] Laboratory Eosinophils % 1.3 0 - 4.4 03/31 St[facility] Studies /2017 [facility] [place] Laboratory Basophils % 1.4 0 - 1.3 03/[address] Studies /2018 [facility] [place] Laboratory Absolute 4.6 1.8 - 8.0 03/[address] [facility] [address] Studies Neutrophil /2017 [facility] [place] Laboratory Absolute 1.0 0.1 - 1.3 03/[address] [facility] [address] Studies Monocytes /2017 [facility] (CBC) [place] Laboratory Absolute 1.5 0.7 - 4.9 03/[address] [facility] [address] Studies Lymphocytes [facility] (CBC) [place] Laboratory Absolute 0.1 0 - 0.5 03/[address] [facility] [address] Studies Eosinophils /2017 [facility] (CBC) [place] Laboratory Absolute 0.1 0 - 0.5 03/[address] [facility] [address] Studies Basophils /2017 [facility] (CBC) [place] Microbiolog Escherichia Escherichia 03/[address] [facility] [address] y Studies Coli Coli /2016 [facility] [place] Laboratory Urine WBC Urine WBC 03/25 St[facility] Studies [facility] [place] Laboratory Urine Urine 03/[address] [facility] [address] Studies Squamous Squamous /2016 [facility] Epithelial Epithelial [place] Cells Cells Laboratory Urine RBC <5 03/[address] Studies /2016 [facility] [place] Laboratory Urine Culture Urine 03/[address] [facility] [address] Studies Reflexed Culture /2016 [facility] Reflexed [place] Laboratory Urine <20 03/[address] [facility] [address] Studies Bacteria /2016 [facility] [place] Laboratory Urine pH 6.5 03/25 St[facility] Studies /2016 [facility] [place] Laboratory Urine 0.2 03/[address] [facility] [address] Studies Urobilinogen /2016 [facility] [place] Laboratory Urine Total Urine Total 03/[address] [facility] [address] Studies Protein Protein /2016 [facility] [place] Laboratory Urine Urine 03/[address] [facility] [address] Studies Specific Specific /2016 [facility] [place] Laboratory Urine Nitrite Urine 03/[address] [facility] [address] Studies Nitrite [facility] [place] Laboratory Urine Urine 03/[address] [facility] [address] Studies Leukocyte Leukocyte [facility] Esterase Esterase [place] Laboratory Urine Ketones Urine 03/[address] [facility] [address] Studies Ketones [facility] [place] Laboratory Urine Glucose Urine 03/[address] [facility] [address] Studies Glucose [facility] [place] [facility] Urine Color Urine Color 03/[address] Studies [facility] [place] [facility] Urine Blood Urine Blood 03/[address] [facility] [address] Studies [facility] [place] Laboratory Urine Urine 03/[address] [facility] [address] Studies Bilirubin Bilirubin [facility] [place] Laboratory Urine Urine 03/[address] [facility] [address] Studies Appearance Appearance [facility] [place] Microbiolog Enterococcus Enterococcu 03/[address] [facility] [address] y Studies Faecalis s Faecalis [facility] [place] Laboratory Phosphorus 3.1 2.5 - 4.3 03/[address] [facility] [address] Studies Level [facility] [place] Pathology Reports No Data Provided for This Section Diagnostic Reports No Data Provided for This Section Consultation Notes No Data Provided for This Section Discharge Summaries No Data Provided for This Section History and Physicals No Data Provided for This Section Vital Signs Vital Sign Value Date Comments Source Temperature Oral (F) 97.2 F 03/31/2017 [facility] [place] Heart Rate 75 03/31/2017 [facility] [place] Respitory Rate 16 03/31/2017 [facility] [place] Systolic (mm Hg) 112 03/31/[address] [facility] [address] [facility] [place] Diastolic (mm Hg) 53 03/31/[address] [facility] [address] [facility] [place] Height 65 03/26/2017 [facility] [place] Weight 135 03/26/2017 [facility] [place] Encounters Location Location Encounter Encounter Reason Attending ADM DC Status Source Details Type Number For Provider Date Date Visit [id number] 03[facility]20 03[facility] [facility] [address] [facility] 77 [facility]2016 [facility] [place] [facility] [id number] 03/24 03/[address] [facility] [address] 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 BIPOLAR [id number] 03/21/2017 Phil DOC Johnson - ARTHROPLASTY [place] Pelvis [id number] 03/21/2017 DOC Johnson - [place] Hip Right 2 View [id number] 03/20/2017 [facility] Chest Single View [id number] 03/20/2017 [facility] Pelvis [id number] 03/20/2017 [facility] Assessment and Plan No Data Provided for This Section Plan of Care Plan of Care Date Source Instructions 03/31/2017 DOC Bill DI for Hip Fracture PROBLEM: hip fracture GOAL: continue therapy INSTRUCTIONS:follow up with primary physician in 1 to 2 weeks monitor INR 2 x a week, faxed result to primary physician remove santiago 14th day post surgery Diet: Regular Activity: Weight bearing as tolerated DME DME: Date Ordered: Name of Company: [employer] Services Needed: Name of Company: [employer] health Date or Referral: 03/29/17 IMMUNIZATION Influenza Vaccine Indicated: No Influenza Vaccine Given: Date Given: Pneumonia Vaccine Indicated: No Pneumonia Vaccine Given: Date Given: Instructions 03/31/2017 DOC Bill DI for Hip Fracture PROBLEM: hip fracture GOAL: continue therapy INSTRUCTIONS:follow up with primary physician in 1 to 2 weeks monitor INR 2 x a week, faxed result to primary physician remove santiago 14th day post surgery Diet: Regular Activity: Weight bearing as tolerated DME DME: Date Ordered: Name of Company: [employer] Services Needed: Name of Company: [employer] [facility] Date or Referral: 03/29/17 IMMUNIZATION Influenza Vaccine Indicated: No Influenza Vaccine Given: Date Given: Pneumonia Vaccine Indicated: No Pneumonia Vaccine Given: Date Given: Social History Social History Date Source Query Response Date Recorded Comment 03/28/1974 DOC Bill Alcohol Use? No March 24, 2017 11:42pm CD- Drugs? No March 24, 2017 11:42pm Query Response Start Date Stop Date Smoking Status Current every day smoker March 28, 1974 Family History Value Date Source Query Response Instance Date Recorded Comment 03/31/2017 DOC [facility] - [place] Medical History Hypertension Diabetes Father March 24, 2017 11:42pm Advance Directives Order Name Results Value Date Source Advance Directives Advance Directives Advance Directive Response Recorded Date/Time 03/31/2017 DOC Jonhson - Does Patient Have Living Will [facility] No March 24, 2017 11:42pm Durable Power of [employer] for [employer] No March 24, 2017 11:42pm Would you like additional information Yes March 24, 2017 11:42pm Functional Status No Data Provided for This Section
--- OUTSIDE RECORDS SUMMARY | 2018-10-06 10:07 | XMS REPORT ---
[...] Medications Results No Known Results Summary Purpose [facility] [employer] [employer] Submission
--- OUTSIDE RECORDS SUMMARY | 2018-10-06 10:07 | XMS REPORT ---
:1955 Author Organization eClinicalWorks Care Team Providers Name Role Phone Jose Enrique [facility] Provider Role Unavailable Allergies, Adverse Reactions, [...] End Status Dosage System Date Date Lipitor [facility] 02729823914 10 MG Orally Active 1 tablet Once a day Gabapentin ND 07399968299 600 MG Orally Active 1 tablet 4 TIMES PER DAY Hemocyte [facility] 95863052442 324 (106 Fe) Active not defined MG Orally Oxybutynin ND 40860228443 5 MG Active 2 TABS BY Chloride MOUTH EVERY 12 HOURS Oxybutynin ND 58830122821 5 MG Orally Active 1 tablet Chloride Twice a day Omeprazole ND 72280802184 20 Active TAKE 1 CAPSULE BY MOUTH EVERY DAY Atorvastatin ND 34850977333 10 Active TAKE 1 TABLET Calcium BY MOUTH AT BEDTIME. Omeprazole [facility] 68333747343 20 MG Orally Active 1 capsule Once a day Metoprolol [facility] 82453103642 25 MG Orally Active 0.5 tablet Tartrate ONce a day with food Ventolin HFA [facility] 88248587728 108 (90 Base) Active 2 PUFF(S) MCG/ACT INHALED 4 TIMES A DAY FOR 30 DAYS Kenalog [facility] [address]-63 0.1% Active 1 application Externally to affected Three times a area day Oxybutynin [facility] 54693923748 5 Active 2 TABS BY Chloride MOUTH EVERY 12 HOURS Gabapentin [facility] 03318674605 600 Active TAKE 1 TABLET BY MOUTH FOUR TIMES DAILY Citalopram [facility] 37261699286 40 MG Orally Active 1.5 tablets Hydrobromide once a day BuPROPion HCl ER [facility] 41443715351 300 MG Orally Active 1 tab (XL) once a day Norvasc [facility] 08147504196 5 MG Orally Active 1 tablet Once a day Irons [facility] 65316056042 5-325 MG Active 1 tablet as Orally every 6 needed hrs HydrOXYzine [facility] 28708049637 50 MG Orally Active 1 capsule as Pamoate every 8 hrs needed PRN anxiety Lipitor [facility] 95159417674 10 Orally Once Active 1 tablet a day Trazodone HCl [facility] 22062909539 100 Active 1 TAB BY MOUTH TWICE DAILY Warfarin Sodium [facility] 77833730554 5 MG Orally Active not defined Triamcinolone [facility] 13899927205 0.1 Active APPLY 2-3 Acetonide TIMES DAILY TO AFFECTED AREA(S). Trazodone HCl [facility] 09190558476 100 MG Orally Active 1 tablet TWICE DAILY Results No Known Results Immunizations Vaccine Administration Date TDAP > 7 Years-Adacel Nov 21, 2017 Pneumovax Nov 21, 2017 Summary Purpose eClinicalWorks Submission
--- OUTSIDE RECORDS SUMMARY | 2018-10-06 10:07 | XMS REPORT ---
[...] Medications Results No Known Results Summary Purpose [employer] Submission
--- OUTSIDE RECORDS SUMMARY | 2018-10-06 10:08 | XMS REPORT ---
[...] End Status Dosage System Date Date Citalopram [facility] 10019018709 40 MG Orally Dec 16, Active 1 tablet Hydrobromide Once a day 2017 with 20mg=60mg Citalopram [facility] 79674522295 20 MG Orally Dec 16, Active 1 tablet Hydrobromide Once a day 2017 with 40mg=60mg Results No Known Results Summary Purpose eClinicalWorks Submission
--- OUTSIDE RECORDS SUMMARY | 2018-10-06 10:08 | XMS REPORT ---
:1955 Author Organization eClinicalWorks Care Team Providers Name Role Phone Jose Enrique [facility] Provider Role Unavailable Allergies, Adverse Reactions, [...] skin L81.9 Active lesion Problem Atherosclerosis of [place] artery of I70.211 Active right lower extremity [...] Status Dosage System Date Date Ventolin HFA [facility] 67384862792 108 (90 Base) Active 2 puffs as MCG/ACT needed Inhalation every 6 hrs Oxybutynin [facility] 83113358574 5 MG Orally Active 1 tablet Chloride Twice a day Gabapentin ND 44695005929 600 MG Orally Active 1 tablet 4 TIMES PER DAY BuPROPion HCl ER [facility] 33573277222 300 MG Orally Active 1 tab (XL) once a day Citalopram [facility] 36988162683 40 MG Orally Active 1 tablet with Hydrobromide Once a day 20mg=60mg Warfarin Sodium [facility] 08503526190 5 Orally once Active 1 tab daily Omeprazole [facility] 88378836633 20 Active TAKE 1 CAPSULE BY MOUTH EVERY DAY Omeprazole [facility] 28713810547 20 MG Orally Active 1 capsule Once a day Mclean [facility] 86687769111 5-325 MG Active 1 tablet as Orally every 6 needed hrs BuPROPion HCl ER [facility] 72597449139 300 Orally Active 1 tab (XL) once a day Lipitor [facility] 24023573397 10 MG Orally Active 1 tablet Once a day Oxybutynin [facility] 16232715590 5 Active TAKE 2 Chloride TABLETS BY MOUTH EVERY 12 HOURS. Ventolin HFA [facility] 25396712205 108 (90 Base) Active 2 PUFF(S) MCG/ACT INHALED 4 TIMES A DAY FOR 30 DAYS Atorvastatin [facility] 96446199291 10 MG Orally Active 1 tablet Calcium Once a day Triamcinolone [facility] 85134359306 0.1 Externally Active 1 application Acetonide 2-3 times a to affected day area Kenalog [facility] [address]-45 0.1% Active 1 application Externally to affected Three times a area day Hemocyte [facility] 61906812692 324 (106 Fe) Active not defined MG Orally Norvasc [facility] 48724246455 5 MG Orally Active 1 tablet Once a day Gabapentin [facility] 98240428171 600 Active TAKE 1 TABLET BY MOUTH FOUR TIMES DAILY. HydrOXYzine [facility] 43623006197 50 MG Orally Active 1 capsule as Pamoate every 8 hrs needed PRN anxiety Warfarin Sodium [facility] 44293695555 5 MG Orally Active not defined Trazodone HCl [facility] 76154548826 100 MG Orally Active 1 tablet TWICE DAILY Metoprolol [facility] 30929385207 25 MG Orally Active 0.5 tablet Tartrate ONce a day with food Results No Known Results Summary Purpose eClinicalWorks Submission
--- OUTSIDE RECORDS SUMMARY | 2018-10-06 10:08 | XMS REPORT ---
[...] Medications Results No Known Results Summary Purpose [employer] Submission
--- OUTSIDE RECORDS SUMMARY | 2018-10-06 10:08 | XMS REPORT ---
[...] with anxiety F41.8 Active Problem Atherosclerosis of [place] artery of I70.211 Active right lower extremity with intermittent claudication Assessment Hyperlipidemia, mixed E78.2 Active Problem Benign hypertension I10 Active Problem Lumbar disc herniation M51.26 Active Problem Depression with anxiety F41.8 Active Problem Chronic back pain M54.9 Active Problem Hypomagnesemia E83.42 Active Problem Peptic ulcer disease K27.9 Active Assessment Atherosclerosis of [place] artery of I70.211 Active right lower extremity with intermittent claudication Problem History of cerebrovascular accident Z86.73 Active Problem Spinal stenosis of lumbar region, M48.061 Active unspecified whether neurogenic claudication present Problem Peripheral vascular disease I73.9 Active Problem Incontinence of urine R32 Active Medications Medication Code Code Instructions Start End Status Dosage System Date Date Gabapentin [facility] 03300341171 600 MG Orally Active 1 tablet 4 TIMES PER DAY [place]amy [facility] 43000505364 5-325 MG Active 1 tablet as Orally every 6 needed hrs Kenalog [facility] [address]-29 0.1% Active 1 application Externally to affected Three times a area day Oxybutynin [facility] 90499993136 5 MG Orally Active 1 tablet Chloride Twice a day Omeprazole [facility] 85311808479 20 Active TAKE ONE CAPSULE BY MOUTH EVERY DAY Warfarin Sodium [facility] 05208072537 5 Orally once Active 1 tab daily Warfarin Sodium [facility] 02897312117 5 MG Orally Active not defined Trazodone HCl [facility] 46851845735 100 MG Orally Active 1 tablet TWICE DAILY Omeprazole [facility] 19752503467 20 Active TAKE 1 CAPSULE BY MOUTH EVERY DAY Hemocyte [facility] 66879047048 324 (106 Fe) Active not defined MG Orally Ventolin HFA [facility] 70755621317 108 (90 Base) Active 2 puffs as MCG/ACT needed Inhalation every 6 hrs BuPROPion HCl ER [facility] 79022456525 300 Orally Active 1 tab (XL) once a day Omeprazole [facility] 79171082267 20 MG Orally Active 1 capsule Once a day Norvasc [facility] 78727175363 5 MG Orally Active 1 tablet Once a day Lipitor [facility] 33729997819 10 MG Orally Active 1 tablet Once a day Citalopram [facility] 83915574142 40 MG Orally Active 1 tablet with Hydrobromide Once a day 20mg=60mg Triamcinolone [facility] 88295869600 0.1 Externally Active 1 application Acetonide 2-3 times a to affected day area Ventolin HFA [facility] 73904723486 108 (90 Base) Active 2 PUFF(S) MCG/ACT INHALED 4 TIMES A DAY FOR 30 DAYS HydrOXYzine [facility] 79758423860 50 MG Orally Active 1 capsule as Pamoate every 8 hrs needed PRN anxiety Metoprolol [facility] 65309348039 25 MG Orally Active 0.5 tablet Tartrate ONce a day with food Oxybutynin [facility] 77569816517 5 Active 2 TABS BY Chloride MOUTH EVERY 12 HOURS Atorvastatin [facility] 37263781228 10 MG Orally Active 1 tablet Calcium Once a day Gabapentin [facility] 47367101814 600 Active TAKE 1 TABLET BY MOUTH FOUR TIMES DAILY. BuPROPion HCl ER [facility] 24344363512 300 MG Orally Active 1 tab (XL) once a day Results No Known Results Summary Purpose eClinicalWorks Submission
--- OUTSIDE RECORDS SUMMARY | 2018-10-06 10:08 | XMS REPORT ---
[...] J44.9 Active disease (COPD) Problem Atherosclerosis of [place] artery of I70.211 Active right lower extremity [...] 22.0-22.9, adult Z68.22 Active Assessment Atherosclerosis of [place] artery of I70.211 Active right lower extremity with intermittent claudication Assessment Lumbar disc herniation M51.26 Active Problem History of cerebrovascular accident Z86.73 Active Problem Spinal stenosis of lumbar region, M48.061 Active unspecified whether neurogenic claudication present Problem Peripheral vascular disease I73.9 Active Problem Incontinence of urine R32 Active Medications Medication Code Code Instructions Start End Status Dosage System Date Date Atorvastatin [facility] 35078285629 10 MG Orally Active 1 tablet Calcium Once a day Ventolin HFA [facility] 50736054634 108 (90 Base) Active 2 PUFF(S) MCG/ACT INHALED 4 TIMES A DAY FOR 30 DAYS Warfarin Sodium [facility] 28126939133 5 MG Orally Active not defined Gabapentin [facility] 13008375296 600 MG Orally Active 1 tablet 4 TIMES PER DAY Oxybutynin [facility] 29587382689 5 Active TAKE 2 Chloride TABLETS BY MOUTH EVERY 12 HOURS. Lipitor [facility] 51959874440 10 MG Orally Active 1 tablet Once a day BuPROPion HCl ER [facility] 57955214467 300 MG Orally Active 1 tab (XL) once a day Omeprazole [facility] 42895692257 20 Active TAKE 1 CAPSULE BY MOUTH EVERY DAY Ventolin HFA [facility] 04894840977 108 (90 Base) Active 2 puffs as MCG/ACT needed Inhalation every 6 hrs Metoprolol [facility] 66368077928 25 MG Orally Active 0.5 tablet Tartrate ONce a day with food Gabapentin [facility] 16254264643 600 Active TAKE 1 TABLET BY MOUTH FOUR TIMES DAILY. Citalopram [facility] 92632624765 40 MG Orally Active 1 tablet with Hydrobromide Once a day 20mg=60mg Norvasc [facility] 42976509140 5 MG Orally Active 1 tablet Once a day Hemocyte [facility] 58846738666 324 (106 Fe) Active not defined MG Orally Kenalog [facility] [address]-93 0.1% Active 1 application Externally to affected Three times a area day Warfarin Sodium [facility] 46433417349 5 Orally once Active 1 tab daily BuPROPion HCl ER [facility] 18888843123 300 Orally Active 1 tab (XL) once a day Oxybutynin [facility] 96930580771 5 MG Orally Active 1 tablet Chloride Twice a day HydrOXYzine [facility] 56202710741 50 MG Orally Active 1 capsule as Pamoate every 8 hrs needed PRN anxiety [place] [facility] 89270546609 5-325 MG Active 1 tablet as Orally every 6 needed hrs Triamcinolone [facility] 58940220936 0.1 Externally Active 1 application Acetonide 2-3 times a to affected day area Omeprazole [facility] 41232115962 20 MG Orally Active 1 capsule Once a day Trazodone HCl [facility] 20993121222 100 MG Orally Active 1 tablet TWICE DAILY Results No Known Results Summary Purpose eClinicalWorks Submission
--- OUTSIDE RECORDS SUMMARY | 2018-10-06 10:08 | XMS REPORT ---
[...] Stress incontinence N39.3 Active Problem Atherosclerosis of [place] artery of I70.211 Active right lower extremity [...] End Date Status Dosage System Date Metoprolol [facility] 26808145692 25 MG Orally Active 1 tablet Tartrate Once a day with food Results No Known Results Summary Purpose eClinicalWorks Submission
--- OUTSIDE RECORDS SUMMARY | 2018-10-06 10:08 | XMS REPORT ---
[...] Stress incontinence N39.3 Active Problem Atherosclerosis of [place] artery of I70.211 Active right lower [...] Start End Date Status Dosage Date Spinosad [facility] 89660586139 0.9 % Externally Apr 11, Apr 12, Active apply to once 2018 2018 hair and scalp, leave for 10 minutes. Rinse well. May repeat in 1 week if needed Results No Known Results Summary Purpose [employer] Submission
--- OUTSIDE RECORDS SUMMARY | 2018-10-06 10:08 | XMS REPORT ---
[...] Stress incontinence N39.3 Active Problem Atherosclerosis of [place] artery of I70.211 Active right lower extremity [...]
--- OUTSIDE RECORDS SUMMARY | 2018-10-06 10:08 | XMS REPORT ---
[...] End Status Dosage System Date Date Norvasc [facility] 50600757525 5 MG Orally Active 1 tablet Once a day Oxybutynin [facility] 65728909661 5 MG Active 2 TABS BY Chloride MOUTH EVERY 12 [address] [facility] 36813066711 40 MG Orally Active 1.5 tablets Hydrobromide once a day Omeprazole [facility] 56121740323 20 Active TAKE 1 CAPSULE BY MOUTH EVERY DAY HydrOXYzine [facility] 65268588076 50 MG Orally Active 1 capsule as Pamoate every 8 hrs needed PRN anxiety Hemocyte [facility] 21024833400 324 (106 Fe) Active not defined MG Orally Warfarin Sodium [facility] 12061714019 5 MG Orally Active 1 tab once daily Oxybutynin [facility] 17681293596 5 MG Orally Active 1 tablet Chloride Twice a day Trazodone HCl [facility] 27077375684 100 Active 1 TAB BY MOUTH TWICE DAILY Metoprolol [facility] 35608321932 25 MG Orally Active 0.5 tablet Tartrate ONce a day with food Gabapentin [facility] 19322621649 600 Active TAKE 1 TABLET BY MOUTH FOUR TIMES DAILY [place] [facility] 41060339299 5-325 MG Active 1 tablet as Orally every 6 needed hrs Gabapentin [facility] 84033316840 600 MG Orally Active 1 tablet 4 TIMES PER DAY Ventolin HFA [facility] 06141131871 108 (90 Base) Active 2 PUFF(S) MCG/ACT INHALED 4 TIMES A DAY FOR 30 DAYS Atorvastatin [facility] 40058135447 10 MG Orally Active 1 tablet Calcium Once a day Trazodone HCl [facility] 34778829996 100 MG Orally Active 1 tablet TWICE DAILY BuPROPion HCl ER [facility] 99398399492 300 MG Orally Active 1 tab (XL) once a day Triamcinolone [facility] 58585012139 0.1 Externally Active 1 application Acetonide 2-3 times a to affected day area Omeprazole [facility] 40319555349 20 MG Orally Active 1 capsule Once a day Lipitor [facility] 65456228720 10 Orally Once Active 1 tablet a day Kenalog [facility] [address]-14 0.1% Active 1 application Externally to affected Three times a area day Oxybutynin [facility] 58160198012 5 Active 2 TABS BY Chloride MOUTH EVERY [address] [facility] 61076720989 10 MG Orally Active 1 tablet Once a day Results No Known Results Summary Purpose eClinicalWorks Submission
--- OUTSIDE RECORDS SUMMARY | 2018-10-06 10:08 | XMS REPORT ---
[...] Stress incontinence N39.3 Active Problem Atherosclerosis of [place] artery of I70.211 Active right lower extremity [...] Status Dosage System Date Date Ventolin HFA [facility] 34603183794 108 (90 Base) Active 2 puffs as MCG/ACT needed Inhalation every 6 hrs Hemocyte [facility] 51015479630 324 (106 Fe) Active not defined MG Orally Gabapentin ND 44923182819 600 MG Orally Active 1 tablet 4 TIMES PER DAY HydrOXYzine [place] 23210578722 50 MG Orally Active 1 capsule as Pamoate every 8 hrs needed PRN anxiety BuPROPion HCl ND 05505608191 300 MG Orally Active 1 tab ER (XL) once a day BuPROPion HCl [place] 13255123461 300 Orally Active 1 tab ER (XL) once a day Omeprazole ND 37714953481 20 Active TAKE 1 CAPSULE BY MOUTH EVERY DAY Omeprazole [place] 41623597008 20 MG Orally Active 1 capsule Once a day Oxybutynin [facility] 12578443440 5 MG Orally Active 1 tablet Chloride Twice a day Ventolin HFA [facility] 22561942085 108 (90 Base) Active 2 PUFF(S) MCG/ACT INHALED 4 TIMES A DAY FOR 30 DAYS Trazodone HCl [facility] 62582243642 100 MG Orally Active 1 tablet TWICE DAILY Gabapentin [facility] 60777322353 600 Active TAKE 1 TABLET BY MOUTH FOUR TIMES DAILY. Warfarin Sodium [facility] 75682100889 5 Orally once Active 1 tab daily Atorvastatin [facility] 14432752508 10 MG Orally Active 1 tablet Calcium Once a day Triamcinolone [facility] 13287185817 0.1 Externally Active 1 application Acetonide 2-3 times a to affected day area Kenalog [facility] [address]-46 0.1% Active 1 application Externally to affected Three times a area day [place] [facility] 10209999940 5-325 MG Active 1 tablet as Orally every 6 needed hrs Norvasc [facility] 11204325084 5 MG Orally Active 1 tablet Once a day Oxybutynin [facility] 40877412049 5 Active TAKE 2 Chloride TABLETS BY MOUTH EVERY 12 HOURS. Citalopram [facility] 87348068964 40 MG Orally Active 1 tablet with Hydrobromide Once a day 20mg=60mg Warfarin Sodium [facility] 99848864130 5 MG Orally Active not defined Metoprolol [facility] 97255179111 50 MG Orally Inactive 0.5 tablet Tartrate Every other with food day Lipitor [facility] 03673412796 10 MG Orally Active 1 tablet Once a day Results No Known Results Summary Purpose eClinicalWorks Submission
--- OUTSIDE RECORDS SUMMARY | 2018-10-06 10:09 | XMS REPORT ---
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 Active Assessment Atherosclerosis of [place] artery of I70.211 Active right lower extremity [...] for alcohol use disorder Problem Atherosclerosis of [place] artery of I70.211 Active right lower extremity [...] Status Dosage System Date Date Warfarin Sodium [facility] 99058223218 5 MG Orally Active not defined Trazodone HCl [facility] 18459458357 100 MG Orally Active 1 tablet TWICE DAILY Metoprolol [facility] 41471176138 25 MG Orally Active 0.5 tablet Tartrate ONce a day with food Gabapentin [facility] 88509246955 600 MG Orally Active 1 tablet 4 TIMES PER DAY Ventolin HFA [facility] 84355576023 108 (90 Base) Active 2 puffs as MCG/ACT needed Inhalation every 6 hrs Oxybutynin [facility] 32339370465 5 MG Orally Active 1 tablet Chloride Twice a day BuPROPion HCl ER [facility] 53125156823 300 MG Orally Active 1 tab (XL) once a day Lipitor [facility] 70433584229 10 MG Orally Active 1 tablet Once a day Norvasc [facility] 03950417488 5 MG Orally Active 1 tablet Once a day Atorvastatin [facility] 57586288874 10 MG Orally Active 1 tablet Calcium Once a day HydrOXYzine [facility] 31021166715 50 MG Orally Active 1 capsule as Pamoate every 8 hrs needed PRN anxiety Memantine HCl [facility] 38107527083 10 MG Orally Active 1 tablet Twice a day Citalopram [facility] 31895782680 40 MG Orally Active 1 tablet with Hydrobromide Once a day 20mg=60mg Hemocyte [facility] 93014081316 324 (106 Fe) Active not defined MG Orally Triamcinolone [facility] 57196212396 0.1 Externally Active 1 application Acetonide 2-3 times a to affected day area [place] [facility] 04476354910 5-325 MG Active 1 tablet as Orally every 6 needed hrs Omeprazole [facility] 35232842587 20 MG Orally Active 1 capsule Once a day Kenalog [facility] [address]-42 0.1% Active 1 application Externally to affected Three times a area day Results No Known Results Summary Purpose eClinicalWorks Submission
--- OUTSIDE RECORDS SUMMARY | 2018-10-06 10:09 | XMS REPORT ---
[...] disorder without prior episode Problem Atherosclerosis of [place] artery of I70.211 Active right lower extremity [...] Date Status Dosage System Date BusPIRone HCl [facility] 88094962699 10 MG Orally June 23, Active 1 tablet Twice a day 2018 Results No Known Results Summary Purpose eClinicalWorks Submission
--- OUTSIDE RECORDS SUMMARY | 2018-10-06 10:09 | XMS REPORT ---
[...] disorder without prior episode Problem Atherosclerosis of [place] artery of I70.211 Active right lower extremity [...] Status Dosage System Date Date Ventolin HFA [facility] 17430386804 108 (90 Base) Active 2 puffs as MCG/ACT needed Inhalation every 6 hrs Hemocyte [facility] 98698237250 324 (106 Fe) Active not defined MG Orally Omeprazole [place] 03086601683 20 MG Orally Active 1 capsule Once a day Citalopram [facility] 81082771926 40 MG Orally Active 1 tablet with Hydrobromide Once a day 20mg=60mg Metoprolol [place] 07607288731 25 MG Orally Active 0.5 tablet Tartrate ONce a day with food Oxybutynin [facility] 94681253146 5 MG Orally Active 1 tablet Chloride Twice a day Triamcinolone [facility] 39382192882 0.1 Externally Active 1 application Acetonide 2-3 times a to affected day area Warfarin Sodium [facility] 87442829689 5 MG Orally Active not defined Trazodone HCl [facility] 04147039849 100 MG Orally Active 1 tablet TWICE DAILY Memantine HCl [facility] 16866977563 10 MG Orally Active 1 tablet Twice a day Norvasc [facility] 73500466464 5 MG Orally Active 1 tablet Once a day Atorvastatin [facility] 36222908909 10 MG Orally Active 1 tablet Calcium Once a day HydrOXYzine [facility] 14403693831 50 MG Orally Active 1 capsule as Pamoate every 8 hrs needed PRN anxiety BusPIRone HCl [facility] 19101379810 10 MG Orally [place] Active 1 tablet Twice a day 2018 Lipitor [facility] 66150942074 10 MG Orally Active 1 tablet Once a day BuPROPion HCl ER [facility] 76418080663 300 MG Orally Active 1 tab (XL) once a day Gabapentin [facility] 07930769537 600 MG Orally Active 1 tablet 4 TIMES PER DAY Nerinx [facility] 06360468796 5-325 MG Active 1 tablet as Orally every 6 needed hrs Kenalog [facility] [address]-29 0.1% Active 1 application Externally to affected Three times a area day Results No Known Results Summary Purpose eClinicalWorks Submission
--- OUTSIDE RECORDS SUMMARY | 2018-10-06 10:09 | XMS REPORT ---
[...] Hyperlipidemia, mixed E78.2 Active Assessment Atherosclerosis of [place] artery of I70.211 Active right lower extremity [...] of fall Z91.81 Active Problem Atherosclerosis of [place] artery of I70.211 Active right lower extremity [...] End Status Dosage System Date Date Triamcinolone [facility] 11517086299 0.1 Externally Active 1 application Acetonide 2-3 times a to affected day area Omeprazole [facility] 05527592226 20 MG Orally Active 1 capsule Once a day Winifrede [facility] 47946486344 5-325 MG Active 1 tablet as Orally every 6 needed hrs Lipitor [facility] 57756884785 10 MG Orally Active 1 tablet Once a day BuPROPion HCl ER [facility] 48787058088 300 MG Orally Active 1 tab (XL) once a day Metoprolol [facility] 39403207428 25 MG Orally Active 0.5 tablet Tartrate ONce a day with food Atorvastatin [facility] 61385010863 10 MG Orally Active 1 tablet Calcium Once a day Citalopram [facility] 74166841014 40 MG Orally Active 1 tablet with Hydrobromide Once a day 20mg=60mg Kenalog [facility] [address]-66 0.1% Active 1 application Externally to affected Three times a area day Trazodone HCl [facility] 46149378447 100 MG Orally Active 1 tablet TWICE DAILY Oxybutynin [facility] 50992022492 5 MG Orally Active 1 tablet Chloride Twice a day Memantine HCl [facility] 31103221062 10 MG Orally Active 1 tablet Twice a day Norvasc [facility] 95754276552 5 MG Orally Active 1 tablet Once a day Warfarin Sodium [facility] 80012539739 5 MG Orally Active not defined BusPIRone HCl [facility] 44741008771 10 MG Orally May Active 1 tablet Twice a day 2018 Bevespi [facility] 03887539007 9-4.8 MCG/ACT June Active 2 puffs Aerosphere Inhalation , Twice a day 2018 2019 HydrOXYzine [facility] 16160215335 50 MG Orally Active 1 capsule as Pamoate every 8 hrs needed PRN anxiety Hemocyte [facility] 21892745355 324 (106 Fe) Active not defined MG Orally Gabapentin [facility] 94014815570 600 MG Orally Active 1 tablet 4 TIMES PER DAY Ventolin HFA [facility] 78402570744 108 (90 Base) Active 2 puffs as MCG/ACT needed Inhalation every 6 hrs Results No Known Results Summary Purpose eClinicalWorks Submission
--- OUTSIDE RECORDS SUMMARY | 2018-10-06 10:10 | XMS REPORT ---
[...] Hyperlipidemia, mixed E78.2 Active Assessment Atherosclerosis of [place] artery of I70.211 Active right lower extremity [...] of fall Z91.81 Active Problem Atherosclerosis of [place] artery of I70.211 Active right lower extremity [...] Start End Status Dosage System Date Date BusPIRone HCl [facility] 82410824932 10 MG Orally March Active 1 tablet Twice a day 2018 Atorvastatin [facility] 03662790546 10 MG Orally Active 1 tablet Calcium Once a day Lipitor [facility] 42798396073 10 MG Orally Active 1 tablet Once a day Gabapentin [facility] 23758629120 600 MG Orally Active 1 tablet 4 TIMES PER DAY HydrOXYzine [facility] 41374766559 50 MG Orally Active 1 capsule as Pamoate every 8 hrs needed PRN anxiety Citalopram [facility] 14410709440 40 MG Orally Active 1 tablet with Hydrobromide Once a day 20mg=60mg Triamcinolone [facility] 79796397890 0.1 Externally Active 1 application Acetonide 2-3 times a to affected day area Oxybutynin [facility] 40814799033 5 MG Orally Active 1 tablet Chloride Twice a day [place] [facility] 08798303749 5-325 MG Active 1 tablet as Orally every 6 needed hrs Ventolin HFA [facility] 48217352364 108 (90 Base) Active 2 puffs as MCG/ACT needed Inhalation every 6 hrs Bevespi [facility] 19891060260 9-4.8 MCG/ACT Active 2 puffs Aerosphere Inhalation Twice a day Metoprolol [facility] 40409509244 25 MG Orally Active 0.5 tablet Tartrate ONce a day with food Norvasc [facility] 53623998837 5 MG Orally Active 1 tablet Once a day Omeprazole [facility] 54023391996 20 MG Orally Active 1 capsule Once a day Warfarin Sodium [facility] 86554328653 5 MG Orally Active not defined Memantine HCl [facility] 53854472170 10 MG Orally Active 1 tablet Twice a day Trazodone HCl [facility] 22652426478 100 MG Orally Active 1 tablet TWICE DAILY Kenalog [facility] [address]-96 0.1% Active 1 application Externally to affected Three times a area day Hemocyte [facility] 58383043997 324 (106 Fe) Active not defined MG Orally BuPROPion HCl ER [facility] 39080533068 300 MG Orally Active 1 tab (XL) once a day Results No Known Results Summary Purpose eClinicalWorks Submission
--- OUTSIDE RECORDS SUMMARY | 2018-10-06 10:10 | XMS REPORT ---
[...] disorder without prior episode Problem Atherosclerosis of [place] artery of I70.211 Active right lower extremity [...]
--- OUTSIDE RECORDS SUMMARY | 2018-10-06 10:10 | XMS REPORT ---
[...] disorder without prior episode Problem Atherosclerosis of [place] artery of I70.211 Active right lower extremity [...]
--- OUTSIDE RECORDS SUMMARY | 2018-10-06 10:10 | XMS REPORT ---
[...] disorder without prior episode Problem Atherosclerosis of [place] artery of I70.211 Active right lower extremity [...]
--- OUTSIDE RECORDS SUMMARY | 2018-10-06 10:10 | XMS REPORT ---
[...] disorder without prior episode Problem Atherosclerosis of [place] artery of I70.211 Active right lower extremity [...] Status Dosage System Date Date HydrOXYzine HCl [facility] 22318560626 25 MG Orally July 19, Active 1 tablet every 8 hrs 2019 as needed Results No Known Results Summary Purpose eClinicalWorks Submission
--- NOTE | 2018-10-06 11:31 | RAD REPORT ---
EXAM DESCRIPTION: Shoulder Right 2 View - 10/06/2018 11:23 am CLINICAL HISTORY: Nontraumatic right shoulder pain COMPARISON: None. TECHNIQUE: Internal and external rotation views of the right shoulder were obtained. FINDINGS: There is no fracture or dislocation. AC joint is normal in appearance. Acromial humeral j oint space is normal. No soft tissue calcifications. No suspicious finding in the ribs or parenchyma of the upper right chest. IMPRESSION: Negative two-view right shoulder examination.
--- NOTE | 2018-10-06 11:32 | RAD REPORT ---
EXAM DESCRIPTION: RAD - C Spine Ap/Lat - 10/06/2018 11:23 am CLINICAL HISTORY: PAIN Radiculopathy COMPARISON: No comparisons FINDINGS: Changes of ACDF span C5-7.No hardware complication is seen.Small posterior osteophytes are present at the levels of fusion.No acute fracture suspected. No subluxation seen. No prevertebral soft tissue thickening or other suspicious soft tissue finding. Small amount of carotid plaquing seen bilaterally. IMPRESSION: Postsurgical changes involving the cervical spine without acute process.
--- NOTE | 2018-10-06 11:47 | ER ---
Nurse's Notes [facility] Name: Ly Gomez Age: 63 yrs Sex: Female : 1955 Arrival Date: 10/06/2018 Time: 10:05 Bed 24 Private MD: Devin Quispe Diagnosis: Chronic pain, not elsewhere classified;Radiculopathy, cervical region Presentation: 10/06 10:18 Presenting complaint: Patient states: Pain in right shoulder/neck area for 6 weeks, Pt la1 carrying purse and magazines in right hand without difficulty. full ROM present, unable to get in with ortho due to pain being "neck related". Transition of care: patient was not received from another setting of care. Onset of symptoms was October 06, 2018. Risk Assessment: Do you want to hurt yourself or someone else? Patient reports no desire to harm self or others. Initial Sepsis Screen: Does the patient meet any 2 criteria? No. Patient's initial sepsis screen is negative. Does the patient have a suspected source of infection? No. Patient's initial sepsis screen is negative. Care prior to arrival: None. 10:18 Method Of Arrival: Ambulatory la1 10:18 Acuity: CORNELIO 4 la1 Historical: - Allergies: 10:18 No Known Allergies; la1 - PMHx: 10:18 CVA; Hyperlipidemia; Hypertension; la1 - Immunization history:: Adult Immunizations up to date. - Social history:: Smoking status: Patient uses tobacco products, smokes one pack cigarettes per day. - Ebola Screening: : No symptoms or risks identified at this time. Screenin:01 Abuse screen: Denies threats or abuse. Denies injuries from another. Nutritional iw screening: No deficits noted. Tuberculosis screening: No symptoms or risk factors identified. Fall Risk None identified. Assessment: 11:01 General: Appears in no apparent distress. Behavior is calm, cooperative. Pain: iw Complains of pain in posterior aspect of right shoulder and anterior aspect of right shoulder. Neuro: Level of Consciousness is awake, alert, obeys commands, Oriented to person, place, time, situation. Cardiovascular: Patient's skin is warm and dry. Respiratory: Respiratory effort is even, labored, Respiratory pattern is regular, symmetrical. Derm: Skin is intact, is healthy with good turgor. Musculoskeletal: Range of motion: intact in all extremities. Vital Signs: 10:20 Resp 16; Temp 97.6; Pulse Ox 98% on R/A; Weight 67.59 kg; Height 5 ft. 5 in. (165.10 la1 cm); 10:21 BP 98 / 52; la1 10:20 Body Mass Index 24.79 (67.59 kg, 165.10 cm) la1 ED Course: 10:05 Patient arrived in ED. as 10:06 Devin Quispe DO is Private Physician. as 10:09 Jessica Saldana FNP-C is [facility]. snw 10:09 Corwin Calderon MD is Attending Physician. snw 10:18 Arm band placed on left wrist. la1 10:20 Triage completed. la1 10:22 Maryann Escobar, JOAN is Primary Nurse. iw 11:11 No provider procedures requiring assistance completed. Patient did not have IV access iw during this emergency room visit. 11:21 Shoulder Right (2 View) XRAY In Process Unspecified. EDMS 11:21 XRAY C Spine Ap/lat In Process Unspecified. EDMS 11:45 Devin Quispe DO is Referral Physician. snw 12:45 Primary Nurse role handed off by Maryann Escobar, RN snw Administered Medications: No medications were administered Outcome: 11:46 Discharge ordered by . snw 12:02 Patient left the ED. iw 12:46 Patient left the ED. snw Signatures: Dispatcher [employer] EDMS Jessica Saldana FNP-C PULMONOLOGIST-Csnw January Sifuentes as Maryann Escobar RN RN iw Tha Wood RN RN la1
--- NOTE | 2018-10-06 11:47 | EDPHYS ---
Physician Documentation [facility] [place], [place] Name: Ly Gomez Age: 63 yrs Sex: Female : 1955 Arrival Date: 10/06/2018 Time: 10:05 Bed 24 Private MD: Opal Quispeh ED Physician Corwin Calderon HPI: 10/06 10:57 This 63 yrs old Female presents to ER via Ambulatory with complaints of snw Shoulder Pain. 10:57 The patient or guardian complains of decreased range of motion, pain. right posterior snw aspect of neck and posterior aspect of right shoulder and anterior aspect of right shoulder. Context: The problem was sustained at an unknown site, resulted from yoga, The patient experiences decreased range of motion, when attempts to raise arm, The patient reports no obvious deformity. Onset: The symptoms/episode began/occurred gradually, 6 week(s) ago, and became worse and became persistent. Associated signs and symptoms: The patient has no apparent associated signs or symptoms. Severity of symptoms: At their worst the symptoms were moderate. Treatment prior to arrival includes: pain management MD gave flexeril, norco, and prednisone. The patient has experienced similar episodes in the past. It is unknown whether or not the patient has recently seen a physician. Historical: - Allergies: 10:18 No Known Allergies; la1 - PMHx: 10:18 CVA; Hyperlipidemia; Hypertension; la1 - Immunization history:: Adult Immunizations up to date. - Social history:: Smoking status: Patient uses tobacco products, smokes one pack cigarettes per day. - Ebola Screening: : No symptoms or risks identified at this time. ROS: 10:56 Constitutional: Negative for fever, chills, and weight loss, Eyes: Negative for injury, snw pain, redness, and discharge, ENT: Negative for injury, pain, and discharge, Neck: Negative for injury, pain, and swelling, Cardiovascular: Negative for chest pain, palpitations, and edema, Respiratory: Negative for shortness of breath, cough, wheezing, and pleuritic chest pain, Abdomen/GI: Negative for abdominal pain, nausea, vomiting, diarrhea, and constipation, Back: Negative for injury and pain, : Negative for injury, bleeding, discharge, and swelling, Skin: Negative for injury, rash, and discoloration, Neuro: Negative for headache, weakness, numbness, tingling, and seizure, Psych: Negative for depression, anxiety, suicide ideation, homicidal ideation, and hallucinations. 10:56 MS/extremity: Positive for decreased range of motion, pain, tenderness, of the right posterior aspect of neck and right shoulder. Exam: 10:55 Constitutional: This is a well developed, well nourished patient who is awake, alert, snw and in no acute distress. Head/Face: Normocephalic, atraumatic. Eyes: Pupils equal round and reactive to light, extra-ocular motions intact. Lids and lashes normal. Conjunctiva and sclera are non-icteric and not injected. Cornea within normal limits. Periorbital areas with no swelling, redness, or edema. ENT: Nares patent. No nasal discharge, no septal abnormalities noted. Tympanic membranes are normal and external auditory canals are clear. Oropharynx with no redness, swelling, or masses, exudates, or evidence of obstruction, uvula midline. Mucous membranes moist. Neck: Trachea midline, no thyromegaly or masses palpated, and no cervical lymphadenopathy. Supple, full range of motion without nuchal rigidity, or vertebral point tenderness. No Meningismus. Chest/axilla: Normal chest wall appearance and motion. Nontender with no deformity. No lesions are appreciated. Cardiovascular: Regular rate and rhythm with a normal S1 and S2. No gallops, murmurs, or rubs. Normal PMI, no JVD. No pulse deficits. Respiratory: Lungs have equal breath sounds bilaterally, clear to auscultation and percussion. No rales, rhonchi or wheezes noted. No increased work of breathing, no retractions or nasal flaring. Abdomen/GI: Soft, non-tender, with normal bowel sounds. No distension or tympany. No guarding or rebound. No evidence of tenderness throughout. Back: No spinal tenderness. No costovertebral tenderness. Full range of motion. Skin: Warm, dry with normal turgor. Normal color with no rashes, no lesions, and no evidence of cellulitis. Neuro: Awake and alert, GCS 15, oriented to person, place, time, and situation. Cranial nerves II-XII grossly intact. Motor strength 5/5 in all extremities. Sensory grossly intact. Cerebellar exam normal. Normal gait. Psych: Awake, alert, with orientation to person, place and time. Behavior, mood, and affect are within normal limits. 10:55 Musculoskeletal/extremity: Extremities: grossly normal except: noted in the anterior aspect of right shoulder and posterior aspect of right shoulder: ROM: limited passive range of motion due to pain, in the right shoulder, Circulation is intact in all extremities. Sensation intact. Vital Signs: 10:20 Resp 16; Temp 97.6; Pulse Ox 98% on R/A; Weight 67.59 kg; Height 5 ft. 5 in. (165.10 la1 cm); 10:21 BP 98 / 52; la1 10:20 Body Mass Index 24.79 (67.59 kg, 165.10 cm) la1 MDM: 10:29 Patient medically screened. snw 11:49 Data reviewed: vital signs, nurses notes. Data interpreted: Pulse oximetry: on room air snw is 98 %. Interpretation: normal. Counseling: I had a detailed discussion with the patient and/or guardian regarding: the historical points, exam findings, and any diagnostic results supporting the discharge/admit diagnosis, radiology results, the need for outpatient follow up, to return to the emergency department if symptoms worsen or persist or if there are any questions or concerns that arise at home. Special discussion: Based on the history and exam findings, there is no indication for further emergent testing or inpatient evaluation. I discussed with the patient/guardian the need to see the orthopedic surgeon for further evaluation of the symptoms. I discussed with the patient/guardian the need to see the senior painter for further evaluation of the symptoms. I discussed with the patient/guardian the need to see the primary care provider for further evaluation of the symptoms. 10/06 10:59 Order name: Shoulder Right (2 View) XRAY; Complete Time: 11:44 snw 10/06 10:59 Order name: XRAY C Spine Ap/lat; Complete Time: 11:44 snw Administered Medications: No medications were administered Disposition: 12:09 Co-signature as Attending Physician, Corwin Calderon MD. rn Disposition: 10/06/18 11:46 Discharged to Home. Impression: Chronic pain, not elsewhere classified, Radiculopathy, cervical region. - Condition is Stable. - Discharge Instructions: Cervical Radiculopathy, Chronic Pain, Cervical Sprain, Cryotherapy, Heat Therapy, Radicular Pain. - Prescriptions for orphenadrine citrate 100 mg Oral Tablet Sustained Release - take 1 tablet by ORAL route 2 times per day As needed; 20 tablet. - Medication Reconciliation Form, Thank You Letter, Antibiotic Education, Prescription Opioid Use form. - Follow up: Devin Quispe DO; When: 2 - 3 days; Reason: Recheck today's complaints, Continuance of care, Re-evaluation by your physician. Follow up: Emergency Department; When: As needed; Reason: Worsening of condition. Signatures: Dispatcher [employer] EDMS Jessica Saldana, MEDICAL DEVICE ENGINEER-C MEDICAL DEVICE ENGINEER-Csnw Maryann Escobar, RN RN iw Corwin Calderon MD MD rn Attema, Lee, RN RN la1 Corrections: (The following items were deleted from the chart) 12:02 11:46 10/06/2018 11:46 Discharged to Home. Impression: Chronic pain, not elsewhere iw classified; Radiculopathy, cervical region. Condition is Stable. Forms are Medication Reconciliation Form, Thank You Letter, Antibiotic Education, Prescription Opioid Use. Follow up: Devin Quispe; When: 2 - 3 days; Reason: Recheck today's complaints, Continuance of care, Re-evaluation by your physician. Follow up: Emergency Department; When: As needed; Reason: Worsening of condition. snw 12:46 12:02 10/06/2018 11:46 Discharged to Home. Impression: Chronic pain, not elsewhere snw classified; Radiculopathy, cervical region. Condition is Stable. Discharge Instructions: Cervical Radiculopathy, Chronic Pain, Cervical Sprain, Cryotherapy, Heat Therapy, Radicular Pain. Prescriptions for orphenadrine citrate 100 mg Oral Tablet Sustained Release - take 1 tablet by ORAL route 2 times per day As needed; 20 tablet. and Forms are Medication Reconciliation Form, Thank You Letter, Antibiotic Education, Prescription Opioid Use. Follow up: Devin Quispe; When: 2 - 3 days; Reason: Recheck today's complaints, Continuance of care, Re-evaluation by your physician. Follow up: Emergency Department; When: As needed; Reason: Worsening of condition. iw
[2018-10-06 12:11] VITALS: TEMP 97.6; O2SAT 98
[2018-10-06 12:15] VITALS: BP 98/52
== END 2018-10-06 12:46 | disposition home or self-care (01) ==
LOC: ER 10:05
DX: M54.12 Radiculopathy, cervical region (principal); G89.29 Other chronic pain; F17.210 Nicotine dependence, cigarettes, uncomplicated
CPT/HCPCS: 72040; 99282

== ENCOUNTER 2019-01-10 17:17 | Inpatient (IN) | payer OTHER ==
[2019-01-10] MEDS ORDERED: FENTANYL CITR 100 MCG/2 ML ONE (17:51)
[2019-01-10 17:53] LABS: Absolute Lymphocytes (CBC) 1.7 K/uL (0.7-4.9); Basophils % 0.5 % (0-1.3); Hematocrit 37.1 % (36.0-45.0); Lymphocytes % 15.6 % (15.3-44.8); MPV 9.4 fL (7.6-11.3); RBC Red Blood Cell Count 4.05 M/uL (3.86-4.86)
[2019-01-10 18:04] LABS: Protime INR 2.72
[2019-01-10 18:13] LABS: Potassium 3.9 mmol/L (3.5-5.1)
--- NOTE | 2019-01-10 18:35 | RAD REPORT ---
EXAM DESCRIPTION: RAD - Chest Single View - 01/10/2019 6:25 pm CLINICAL HISTORY: Pre-op Chest pain. COMPARISON: <Comparisons> FINDINGS: Portable technique limits examination quality. The lungs are grossly clear. The heart is normal in size. No displaced fractures.Hardware plate is pr esent cervical spine. Sternotomy wires are present. IMPRESSION: No acute intrathoracic process suspected.
--- NOTE | 2019-01-10 18:36 | RAD REPORT ---
EXAM DESCRIPTION: RAD - Pelvis - 01/10/2019 6:25 pm CLINICAL HISTORY: left hip pain;Abd pain COMPARISON: <Comparisons> FINDINGS: Subcapital fracture of the proximal left femur is seen with varus angulation. Right total hip arthroplasty is seen.
--- NOTE | 2019-01-10 18:58 | EDPHYS ---
Physician Documentation [facility] Name: Ly Gomez Age: 63 yrs Sex: Female : 1955 Arrival Date: 01/10/2019 Time: 17:22 Bed 23 Private MD: ED Physician Aakash Fonseca HPI: 01/10 18:44 This 63 yrs old Female presents to ER via EMS with complaints of Fall Injury. kdr 18:44 Details of fall: The patient fell from an upright position, while walking. Onset: The kdr symptoms/episode began/occurred suddenly, just prior to arrival. Associated injuries: The patient sustained Left hip. Severity of symptoms: At their worst the symptoms were moderate, in the emergency department the symptoms are unchanged. The patient has experienced a previous episode, Had right hip repaired two years ago. The patient has not recently seen a physician. Historical: - Allergies: 17:29 No Known Allergies; ca1 - Home Meds: 17:48 cyclobenzaprine 10 mg Oral tab 1 tab 2 times per day [Active]; omeprazole 20 mg Oral ca1 cpDR 1 cap once daily [Active]; bupropion HCl 300 mg Oral Tb24 1 tab once daily [Active]; citalopram 40 mg tab 1.5 tab once daily [Active]; aspirin 81 mg Oral chew 1 tab once daily [Active]; metoprolol tartrate 25 mg oral tab 1 tab 2 times per day [Active]; gabapentin 600 mg Oral tab 1 tab every 6 hours [Active]; oxybutynin chloride 5 mg Oral tr24 2 tabs twice a day [Active]; buspirone 10 mg Oral tab 1 tab 2 times per day [Active]; amlodipine 5 mg tab 1 tab once daily [Active]; atorvastatin 10 mg oral tab 1 tab once daily [Active]; warfarin 1 mg Oral tab 1 tab once daily [Active]; trazodone 100 mg Oral tab 1 tab 2 times per day [Active]; - PMHx: 17:29 CVA; Hyperlipidemia; Hypertension; Mechanical Mitral Valve; Anxiety; COPD; R hip ca1 Fracture; Bronchitis; - PSHx: 17:29 R hip replacement; Hysterectomy; Appendectomy; Tonsillectomy; ca1 - Immunization history:: Adult Immunizations up to date, Last tetanus immunization: up to date Pneumococcal vaccine is not up to date, Flu vaccine is up to date. - Social history:: Smoking status: Patient/guardian denies using tobacco, but has a distant history of tobacco abuse. - Immunization history: Last tetanus immunization: - up to date. - Ebola Screening: : Patient negative for fever greater than or equal to 101.5 degrees Fahrenheit, and additional compatible Ebola Virus Disease symptoms Patient denies exposure to infectious person Patient denies travel to an Ebola-affected area in the 21 days before illness onset No symptoms or risks identified at this time. ROS: 18:44 Constitutional: Negative for fever, chills, and weight loss, Eyes: Negative for injury, kdr pain, redness, and discharge, Neck: Negative for injury, pain, and swelling, Cardiovascular: Negative for chest pain, palpitations, and edema, Respiratory: Negative for shortness of breath, cough, wheezing, and pleuritic chest pain, Abdomen/GI: Negative for abdominal pain, nausea, vomiting, diarrhea, and constipation, Back: Negative for injury and pain, : Negative for injury, bleeding, discharge, and swelling, Skin: Negative for injury, rash, and discoloration, Neuro: Negative for headache, weakness, numbness, tingling, and seizure activity. Psych: Negative for depression, anxiety, suicide ideation, homicidal ideation, and hallucinations, Allergy/Immunology: Negative for hives, rash, and allergies, Endocrine: Negative for neck swelling, polydipsia, polyuria, polyphagia, and marked weight changes, Hematologic/Lymphatic: Negative for swollen nodes, abnormal bleeding, and unusual bruising. 18:44 MS/extremity: Positive for injury or acute deformity, decreased range of motion, tenderness, of the left femoral area and left hip. Exam: 18:44 Constitutional: This is a well developed, well nourished patient who is awake, alert, kdr and in no acute distress. Head/Face: Normocephalic, atraumatic. Neck: Trachea midline, no thyromegaly or masses palpated, and no cervical lymphadenopathy. Supple, full range of motion without nuchal rigidity, or vertebral point tenderness. No Meningismus. Chest/axilla: Normal chest wall appearance and motion. Nontender with no deformity. No lesions are appreciated. Cardiovascular: Regular rate and rhythm with a normal S1 and S2. No gallops, murmurs, or rubs. Normal PMI, no JVD. No pulse deficits. Respiratory: Lungs have equal breath sounds bilaterally, clear to auscultation and percussion. No rales, rhonchi or wheezes noted. No increased work of breathing, no retractions or nasal flaring. Abdomen/GI: Soft, non-tender, with normal bowel sounds. No distension or tympany. No guarding or rebound. No evidence of tenderness throughout. Back: No spinal tenderness. No costovertebral tenderness. Full range of motion. Skin: Warm, dry with normal turgor. Normal color with no rashes, no lesions, and no evidence of cellulitis. 18:44 Musculoskeletal/extremity: Extremities: grossly normal except: noted in the left femoral area, left inguinal area and left hip: Vital Signs: 17:29 BP 130 / 90; Pulse 64; Resp 17; Pulse Ox 99% on R/A; Weight 63.5 kg (R); Height 5 ft. 5 ca1 in. (165.10 cm) (R); Pain 4/10; 18:44 BP 102 / 73; Pulse 68; Resp 17 S; Pulse Ox 100% on R/A; ca1 19:50 BP 126 / 75; Pulse 65; Resp 17 S; Pulse Ox 100% on R/A; ca1 21:13 BP 122 / 65; Pulse 69; Resp 18; Pulse Ox 100% on R/A; aj1 17:29 Body Mass Index 23.30 (63.50 kg, 165.10 cm) ca1 Viv Coma Score: 17:36 Eye Response: spontaneous(4). Verbal Response: oriented(5). Motor Response: obeys ca1 commands(6). Total: 15. Trauma Score (Adult): 17:36 Eye Response: spontaneous(1); Verbal Response: oriented(1); Motor Response: obeys ca1 commands(2); Systolic BP: > 89 mm Hg(4); Respiratory Rate: 10 to 29 per min(4); Viv Score: 15; Trauma Score: 12 MDM: 18:44 Data reviewed: vital signs, nurses notes, lab test result(s), radiologic studies. kdr Counseling: I had a detailed discussion with the patient and/or guardian regarding: the historical points, exam findings, and any diagnostic results supporting the discharge/admit diagnosis, lab results, radiology results, the need for further work-up and treatment in the hospital. 18:57 Patient medically screened. kdr 01/10 17:36 Order name: CBC with Diff; Complete Time: 18:14 kdr 01/10 17:36 Order name: Chem 7; Complete Time: 18:41 kdr 01/10 17:36 Order name: PT-INR; Complete Time: 18:14 kdr 01/10 19:27 Order name: CBC with Automated Diff EDMS 01/10 19:27 Order name: CBC with Automated Diff EDMS 01/10 19:27 Order name: Comprehensive Metabolic Panel EDMS 01/10 17:36 Order name: Pelvis XRAY kdr 01/10 17:36 Order name: CXR XRAY kdr 01/10 18:39 Order name: Hip Left 2 View XRAY kdr 01/10 19:27 Order name: CONS Physician Consult EDMS 01/10 19:27 Order name: NPO EDMS 01/10 19:27 Order name: Comprehensive Metabolic Panel EDMS 01/10 20:21 Order name: Urinalysis W/Microscopic EDMS 01/10 17:36 Order name: EKG - Nurse/Tech; Complete Time: 17:41 kdr 01/10 19:03 Order name: Read; Complete Time: 19:03 ca1 01/10 20:03 Order name: Social Service Consult EDMS Administered Medications: 17:53 Drug: fentaNYL (PF) 50 mcg Route: IVP; Site: left antecubital; ca1 18:31 Follow up: Response: No adverse reaction; Pain is decreased ca1 19:03 Follow up: Response: No adverse reaction; Pain is decreased; RASS: Alert and Calm (0) ca1 Disposition: 01/10/19 18:57 Hospitalization ordered by Zayda Barrera for Inpatient Admission. Preliminary diagnosis is Left Hip Fracture, S/p fall. - Bed requested for Telemetry/MedSurg (observation). - Status is Inpatient Admission. aj1 - Condition is Fair. - Problem is new. - Symptoms have improved. UTI on Admission? No Signatures: Dispatcher [employer] EDMS Nathalie Zuñiga RN RN aj1 Aakash Fonseca MD MD kdr Jenifer Vargas RN RN cg Janelle Monzon RN RN ca1 Corrections: (The following items were deleted from the chart) 21:03 18:57 Hospitalization Ordered by Zayda Barrera MD for Inpatient Admission. Preliminary cg diagnosis is Left Hip Fracture, S/p fall. Bed requested for Telemetry/MedSurg (observation). Status is Inpatient Admission. Condition is Fair. Problem is new. Symptoms have improved. UTI on Admission? No. kdr 22:07 21:03 01/10/2019 18:57 Hospitalization Ordered by Zayda Barrera MD for Inpatient aj1 Admission. Preliminary diagnosis is Left Hip Fracture, S/p fall. Bed requested for Telemetry/MedSurg (observation). Status is Inpatient Admission. Condition is Fair. Problem is new. Symptoms have improved. UTI on Admission? No. cg
--- NOTE | 2019-01-10 18:58 | ER ---
Nurse's Notes [facility] Name: Ly Gomez Age: 63 yrs Sex: Female : 1955 Arrival Date: 01/10/2019 Time: 17:22 Bed 23 Private MD: Diagnosis: Left Hip Fracture, S/p fall Presentation: 01/10 17:23 Presenting complaint: EMS states: L hip pain sustained after a fall from standing 40 ca1 minutes ago. External rotation of the L hip and shortening of the L leg noted. Denies LOC and hitting head. Pt is on Warfarin. Transition of care: patient was not received from another setting of care. Onset of symptoms was January 10, 2019. Risk Assessment: Do you want to hurt yourself or someone else? Patient reports no desire to harm self or others. Initial Sepsis Screen: Does the patient meet any 2 criteria? No. Patient's initial sepsis screen is negative. Does the patient have a suspected source of infection? No. Patient's initial sepsis screen is negative. Care prior to arrival: Medication(s) given: Normal saline infusion, 300ml Morphine 5mg IV initiated. 20 GA, in the left antecubital area. 17:23 Method Of Arrival: EMS: [facility] ca1 17:23 Acuity: CORNELIO 2 ca1 17:36 Mechanism of Injury: Fall from standing position. Trauma event details: Injury occurred ca1 in the [facility], Injury occurred: at home. Injury occurred: January 10, 2019 Injury occurred at: 16:45. Triage Assessment: 17:29 General: Appears in no apparent distress. comfortable, Behavior is calm, cooperative, ca1 appropriate for age. Pain: Complains of pain in left hip Pain currently is 4 out of 10 on a pain scale. Pain began 30 min ago. Musculoskeletal: Circulation, motion, and sensation intact. Capillary refill < 3 seconds, External rotation of L hip and shortening of L leg. Trauma Activation: Alert Physician: ED Physician; Name: ; Notified At: ; Arrived At: Physician: General Surgeon; Name: ; Notified At: ; Arrived At: Physician: Radiology; Name: ; Notified At: ; Arrived At: Physician: Respiratory; Name: ; Notified At: ; Arrived At: Physician: Lab; Name: ; Notified At: ; Arrived At: Historical: - Allergies: 17:29 No Known Allergies; ca1 - Home Meds: 17:48 cyclobenzaprine 10 mg Oral tab 1 tab 2 times per day [Active]; omeprazole 20 mg Oral ca1 cpDR 1 cap once daily [Active]; bupropion HCl 300 mg Oral Tb24 1 tab once daily [Active]; citalopram 40 mg tab 1.5 tab once daily [Active]; aspirin 81 mg Oral chew 1 tab once daily [Active]; metoprolol tartrate 25 mg oral tab 1 tab 2 times per day [Active]; gabapentin 600 mg Oral tab 1 tab every 6 hours [Active]; oxybutynin chloride 5 mg Oral tr24 2 tabs twice a day [Active]; buspirone 10 mg Oral tab 1 tab 2 times per day [Active]; amlodipine 5 mg tab 1 tab once daily [Active]; atorvastatin 10 mg oral tab 1 tab once daily [Active]; warfarin 1 mg Oral tab 1 tab once daily [Active]; trazodone 100 mg Oral tab 1 tab 2 times per day [Active]; - PMHx: 17:29 CVA; Hyperlipidemia; Hypertension; Mechanical Mitral Valve; Anxiety; COPD; R hip ca1 Fracture; Bronchitis; - PSHx: 17:29 R hip replacement; Hysterectomy; Appendectomy; Tonsillectomy; ca1 - Immunization history:: Adult Immunizations up to date, Last tetanus immunization: up to date Pneumococcal vaccine is not up to date, Flu vaccine is up to date. - Social history:: Smoking status: Patient/guardian denies using tobacco, but has a distant history of tobacco abuse. - Immunization history: Last tetanus immunization: - up to date. - Ebola Screening: : Patient negative for fever greater than or equal to 101.5 degrees Fahrenheit, and additional compatible Ebola Virus Disease symptoms Patient denies exposure to infectious person Patient denies travel to an Ebola-affected area in the 21 days before illness onset No symptoms or risks identified at this time. Screenin:31 Abuse screen: Denies threats or abuse. Denies injuries from another. Nutritional ca1 screening: No deficits noted. Tuberculosis screening: No symptoms or risk factors identified. Fall Risk Fall in past 12 months (25 points). IV access (20 points). Primary Survey: 17:36 NO uncontrolled hemorrhage observed. A: The patient is alert. Airway: patent. ca1 Breathing/Chest: Respiratory pattern: regular, Respiratory effort: spontaneous, unlabored, Breath sounds: clear, bilaterally. Chest inspection: symmetrical rise and fall of the chest. Circulation: Cardiac rhythm: sinus rhythm Heart tones present. Pulses: palpable bilateral radial, brachial, femoral, popliteal, posterior tibial and and dorsalis pedis arteries.. Skin color: pink, Skin temperature: warm, dry. Disability Alert. Exposure/Environment: All clothing and personal items were removed. Forensic evidence collection is not deemed to be indicated at this time. Items placed in patient belonging bag. There is no evidence of uncontrolled external bleeding. No obvious injuries are noted at this time. A warming method has been applied: A warm blanket has been provided to the patient. 18:30 Reassessment Airway Airway Patent Breathing/Chest Respiratory pattern Regular ca1 Respiratory effort Spontaneous Unlabored Breath sounds Clear Chest inspection Symmetrical Circulation Heart rhythm Sinus rhythm Heart tones Present Pulses Palpable Color [place] Temperature Warm Dry Disability Alert. Assessment: 17:31 Reassessment: Dr. Fonseca at bedside. General: Appears in no apparent distress. ca1 comfortable, Behavior is calm, cooperative, appropriate for age. Pain: Complains of pain in pelvis and left hip Pain currently is 4 out of 10 on a pain scale. Neuro: Level of Consciousness is awake, alert, obeys commands, Oriented to person, place, time, situation. Cardiovascular: Heart tones S1 S2 present Capillary refill < 3 seconds Patient's skin is warm and dry. Respiratory: Airway is patent Respiratory effort is even, unlabored, Respiratory pattern is regular, symmetrical, Breath sounds are clear bilaterally. GI: Abdomen is flat, non-distended, Bowel sounds present X 4 quads. Abd is soft and non tender X 4 quads. : No deficits noted. No signs and/or symptoms were reported regarding the genitourinary system. EENT: No deficits noted. No signs and/or symptoms were reported regarding the EENT system. Derm: Skin is intact, is healthy with good turgor, Skin is pink, warm \T\ dry. Musculoskeletal: Circulation, motion, and sensation intact. Capillary refill < 3 seconds. Musculoskeletal: Circulation, motion, and sensation intact. Capillary refill < 3 seconds. 18:44 Reassessment: Patient appears in no apparent distress at this time. Patient and/or ca1 family updated on plan of care and expected duration. Pain level reassessed. Patient is alert, oriented x 3, equal unlabored respirations, skin warm/dry/pink. Dr. Lee at bedside. 19:50 Reassessment: Patient appears in no apparent distress at this time. Patient and/or ca1 family updated on plan of care and expected duration. Pain level reassessed. Patient is alert, oriented x 3, equal unlabored respirations, skin warm/dry/pink. 21:00 Reassessment: Patient and/or family updated on plan of care and expected duration. Pain aj1 level reassessed. General: Appears in no apparent distress. comfortable, Behavior is calm, cooperative, appropriate for age. Pain: Complains of pain in left hip. Neuro: Level of Consciousness is awake, alert, obeys commands, Oriented to person, place, time, situation. Cardiovascular: Heart tones S1 S2 present Patient's skin is warm and dry. Rhythm is sinus rhythm. Respiratory: Airway is patent Respiratory effort is even, unlabored, Respiratory pattern is regular, symmetrical, Breath sounds are clear bilaterally. GI: Abdomen is flat, non-distended. : No signs and/or symptoms were reported regarding the genitourinary system. EENT: No signs and/or symptoms were reported regarding the EENT system. Derm: No signs and/or symptoms reported regarding the dermatologic system. Skin is pink, warm \T\ dry. normal. Musculoskeletal: Capillary refill < 3 seconds, in bilateral toes. Range of motion: limited in left hip. Vital Signs: 17:29 BP 130 / 90; Pulse 64; Resp 17; Pulse Ox 99% on R/A; Weight 63.5 kg (R); Height 5 ft. 5 ca1 in. (165.10 cm) (R); Pain 4/10; 18:44 BP 102 / 73; Pulse 68; Resp 17 S; Pulse Ox 100% on R/A; ca1 19:50 BP 126 / 75; Pulse 65; Resp 17 S; Pulse Ox 100% on R/A; ca1 21:13 BP 122 / 65; Pulse 69; Resp 18; Pulse Ox 100% on R/A; aj1 17:29 Body Mass Index 23.30 (63.50 kg, 165.10 cm) ca1 Welcome Coma Score: 17:36 Eye Response: spontaneous(4). Verbal Response: oriented(5). Motor Response: obeys ca1 commands(6). Total: 15. Trauma Score (Adult): 17:36 Eye Response: spontaneous(1); Verbal Response: oriented(1); Motor Response: obeys ca1 commands(2); Systolic BP: > 89 mm Hg(4); Respiratory Rate: 10 to 29 per min(4); Viv Score: 15; Trauma Score: 12 ED Course: 17:22 Patient arrived in ED. ca1 17:24 Aakash Fonseca MD is Attending Physician. kdr 17:26 Triage completed. ca1 17:29 Arm band placed on right wrist. EKG completed in triage. Results shown to MD. ca1 17:31 Patient has correct armband on for positive identification. Placed in gown. Bed in low ca1 position. Call light in reach. Side rails up X2. alarm security or surveillance monitor on. Pulse ox on. NIBP on. Warm blanket given. 17:31 No provider procedures requiring assistance completed. Maintain EMS IV. Dressing ca1 intact. Good blood return noted. Site clean \T\ dry. Gauge \T\ site: G20 LAC. 17:36 Patient maintains SpO2 saturation greater than 95% on room air. ca1 17:39 Thermoregulation: warm blanket given to patient. ca1 17:41 Janelle Monzon RN is Primary Nurse. ca1 17:48 Side rails up X 1. Pillow given. Verbal reassurance given. jp3 18:22 Pelvis XRAY In Process Unspecified. EDMS 18:22 CXR XRAY In Process Unspecified. EDMS 18:43 Read cath inserted, using sterile technique, 16 Fr., by me, balloon inflated, to ca1 gravity drainage, returned clear yellow urine. Patient tolerated well. 18:54 Zayda Barrera MD is Hospitalizing Provider. kdr 19:36 Hip Left 2 View XRAY In Process Unspecified. EDMS 20:05 Patient admitted, IV remains in place. ca1 21:00 Report received from JOAN Luis. aj1 22:06 Report given to JOAN Montes De Oca on 4th floor. aj1 Administered Medications: 17:53 Drug: fentaNYL (PF) 50 mcg Route: IVP; Site: left antecubital; ca1 18:31 Follow up: Response: No adverse reaction; Pain is decreased ca1 19:03 Follow up: Response: No adverse reaction; Pain is decreased; RASS: Alert and Calm (0) ca1 Output: 20:05 Urine: 400ml (Read); Total: 400ml. ca1 Outcome: 18:57 Decision to Hospitalize by Provider. kdr 20:04 Patient's length of stay in the Emergency Department was greater than 2 hours. Pending ca1 room assignmentPatient's length of stay extended due to 22:06 Admitted to Med/surg accompanied by tech, via stretcher, with chart. aj1 22:06 Condition: stable 22:06 Discharge instructions given to patient, Instructed on the need for admit, Demonstrated understanding of instructions. 22:07 Patient left the ED. aj1 Signatures: Dispatcher [employer] EDNathalie Tracy, RN RN aj1 Aakash Fonseca MD MD kdr Pisarski, Jacob jp3 Janelle Monzon RN RN ca1 Corrections: (The following items were deleted from the chart) 17:36 17:29 Pulse 64bpm; Resp 17bpm; Pulse Ox 99% RA; 63.5 kg Reported; Height 5 ft. 5 in. ca1 Reported; BMI: 23.3; Pain 4/10; ca1
[2019-01-10] MEDS ORDERED: ONDANSETRON 4 MG/2 ML VIAL IV PRN (19:23)
--- NOTE | 2019-01-10 19:56 | RAD REPORT ---
EXAM DESCRIPTION: RAD - Hip Left 2 View - 01/10/2019 7:35 pm CLINICAL HISTORY: PAIN Fall, pain COMPARISON: No comparisons FINDINGS: Subcapital fracture is seen proximal left femur with varus angulation.
--- NOTE | 2019-01-10 20:02 | P.HP ---
Certification for Inpatient Patient admitted to: Inpatient With expected LOS: >2 Midnights Patient will require the following post-hospital care: Rehabilitation Practitioner: I am a practitioner with admitting privileges, knowledge of patient current condition, hospital course, and medical plan of care. Services: Services provided to patient in accordance with Admission requirements found in Title 42 Section 412.3 of the Code of Federal Regulations Patient History Date of Service: 01/11/19 Reason for admission: Fall History of Present Illness: 63-year-old woman with a history of mechanical mitral valve replacement on Coumadin anticoagulation, history of chronic back pain from cervical and lumbar spine disease was brought to the emergency department course patient fell at home. Patient reports she tripped and fell in her doorway. She developed pain in the left hip and could not get up and walk. In the ED, left subcapital femoral fracture. Her INR is therapeutic at 2. Read catheter placed. Patient already evaluated by orthopedic surgery. She is admitted for further management. Allergies No Known Allergies Allergy (Verified 01/10/19 22:10) Home Medications: Bupropion HCl [Wellbutrin Xl] 300 mg PO DAILY 03/20/17 Gabapentin 600 mg PO Q6H 03/20/17 Omeprazole 20 mg PO DAILY 03/20/17 Oxybutynin Chloride [Ditropan Xl] 2 tab PO BID 03/20/17 Trazodone HCl 100 mg PO BID 03/20/17 Warfarin Sodium 7 mg PO BEDTIME 03/20/17 Hydrocodone 7.5/APAP 325 [[place] 7.5/325 mg*] 1 tab PO Q6H PRN 03/25/17 Atorvastatin Calcium 10 mg PO BEDTIME #30 tablet 03/31/17 Iron/FA/Vit B-Com W/C [Hemocyte Plus] 1 tab PO DAILY #30 tab 03/31/17 Amlodipine [Norvasc*] 1 tab PO DAILY 01/10/19 Aspirin 1 tab PO DAILY 01/10/19 Buspirone HCl [Buspar] 1 tab PO BID 01/10/19 Citalopram Hydrobromide [Celexa] 1.5 tab PO DAILY 01/10/19 Cyclobenzaprine [Flexeril*] 1 tab PO BID 01/10/19 Metoprolol Tartrate [Lopressor*] 25 mg PO BID 01/10/19 - Past Medical/Surgical History Diabetic: No -: CVA -: HYPERLIPIDEMIA -: HYPERTENSION -: CAD -: Mitral VALVE REPLACEMENT-has metallic MV -: BACK SURGERY -: abominal surgery -: s/p right bipolar hemiarthroplasty 03/21/17 - Family History Father -: Hypertension, Diabetes Mother -: Cancer Notes: Breast Cancer Sister Notes: Liver Cirrhosis - Social History Alcohol use: No CD- Drugs: No Caffeine use: Yes Review of Systems Other: General: No fever, no malaise, no unintentional weight loss. Eyes: No eye discharge, Respiratory: No cough, no shortness of breath. CVS: No chest pain, no palpitation, no lightheadedness. GI: No abdominal pain, no nausea no vomit, no constipation, no diarrhea. Genitourinary: No dysuria, no urinary frequency, no incontinence, no hematuria. Neurology: No headache, no asymmetric, weakness, no problem with swallowing. Except as documented, all other systems reviewed and negative. Physical Examination - Physical Exam General: Alert, In no apparent distress, Oriented x3 HEENT: Normocephalic, PERRLA, Mucous membr. moist/pink Neck: Supple, JVD not distended Respiratory: Clear to auscultation bilaterally, Normal air movement Cardiovascular: No edema, Normal pulses, Regular rate/rhythm, Normal S1 S2, No murmurs Capillary refill: <2 Seconds Gastrointestinal: Normal bowel sounds, Soft and benign, Non-distended, No tenderness Musculoskeletal: No swelling, Other (Left leg appears short and laterally rotated) Integumentary: No rashes Neurological: Sensation intact, Normal affect (Nonfocal) Urinary: Read catheter - Studies Laboratory Data (last 24 hrs) 01/10/19 17:44: PT 30.9 H, INR 2.72 01/10/19 17:44: Sodium 141, Potassium 3.9, BUN 23 H, Creatinine 1.13, Glucose 106 01/10/19 17:44: WBC 10.7, Hgb 12.3, Hct 37.1, Plt Count 153 Assessment and Plan - Problems (Diagnosis) (1) Closed left hip fracture Current Visit: Yes Status: Acute Qualifiers: Encounter type: initial encounter Qualified Code(s): S72.002A - Fracture of unspecified part of neck of left femur, initial encounter for closed fracture (2) History of hypertension Current Visit: No Status: Chronic (3) Chronic anticoagulation Onset Date: 03/22/17 Current Visit: No Status: Chronic (4) Chronic back pain Current Visit: No Status: Chronic Qualifiers: Back pain location: back pain in unspecified location Back pain laterality : unspecified Qualified Code(s): M54.9 - Dorsalgia, unspecified; G89.29 - Other chronic pain; G89.29 - Other chronic pain (5) History of mitral valve repair Current Visit: No Status: Chronic - Plan Admit the patient to the medical floor Orthopedic consult Pain management with [place] and IV morphine p.r.n. Hold Coumadin and monitor PT and INR. She will be okay for surgery when INR is less of equal to 1.5. Vit K to reverse INR per patient's request. Will anticoagulate with full-dose Lovenox when INR falls below 1.5. Monitor PT/INR daily. Continue home medications for her other stable chronic medical conditions. Check UA - Advance Directives Does patient have a Living Will: No Does patient have a Durable POA for Healthcare: No
[2019-01-10] MEDS ORDERED: INSULIN -REGULAR HUMAN 50 UNIT/0.5 ML ML SQ SCH (21:00)
[2019-01-10] MEDS: MORPHINE 2 MG/ML SYR IV PRN (22:20)
[2019-01-10] MEDS ORDERED: POTASSIUM CL SA 10 MEQ TAB PO ONE (22:33)
[2019-01-10] MEDS: NA CHLORIDE 0.9% 1,000 ML IV SCH (22:43)
[2019-01-10 23:21] LABS: Urine Appearance CLEAR; Urine Bilirubin NEGATIVE (NEG); Urine Blood 3+ (NEG); Urine Color YELLOW; Urine Glucose NEGATIVE (NEG); Urine Protein 1+ (NEG); Urine Specific Gravity 1.015 (1.005-1.030); Urine Urobilinogen 0.2 mg/dL (0.2-1.0)
[2019-01-10 23:29] LABS: Urine Culture Reflex Order REFLEXED
[2019-01-10 23:31] LABS: Urine Bacteria <20 /HPF (<20); Urine RBC >50 /HPF (NONE SEEN)
[2019-01-11] MEDS: TRAZODONE 50 MG TABLET PO PRN (00:17)
[2019-01-11] MEDS ORDERED: HYDROCODONE/APAP 7.5/325 MG TAB PO PRN (00:20)
[2019-01-11] MEDS ORDERED: VITAMIN K (ADULT) 10 MG/ML IVP ONE (00:38)
[2019-01-11] MEDS: GABAPENTIN 300 MG CAP PO SCH ×3 (01:32→13:26)
[2019-01-11] MEDS: MORPHINE 2 MG/ML SYR IV PRN ×4 (02:13→23:01)
[2019-01-11 04:20] LABS: Absolute Lymphocytes (CBC) 1.2 K/uL (0.7-4.9); Basophils % 0.4 % (0-1.3); Hematocrit 33.2 % (36.0-45.0); Lymphocytes % 13.6 % (15.3-44.8); MPV 9.8 fL (7.6-11.3); RBC Red Blood Cell Count 3.66 M/uL (3.86-4.86)
[2019-01-11 04:35] LABS: Albumin 3.3 g/dL (3.4-5.0); Bilirubin Total 0.4 mg/dL (0.2-1.0); Magnesium 1.8 mg/dL (1.8-2.4); Potassium 4.4 mmol/L (3.5-5.1); Protein, Total 6.1 g/dL (6.4-8.2)
[2019-01-11] MEDS ORDERED: PANTOPRAZOLE 40MG TABLET PO SCH (06:30)
[2019-01-11] MEDS ORDERED: MAGNESIUM SULFATE 1 gm IVPB 1 GM/100 ML BAG IV ONE (08:00)
[2019-01-11 08:35] LABS: Protime INR 1.49
[2019-01-11] MEDS ORDERED: AMLODIPINE 5 MG TAB PO SCH (09:00)
[2019-01-11] MEDS ORDERED: OXYBUTYNIN ER 5 MG TAB PO SCH (09:00)
[2019-01-11] MEDS ORDERED: BUSPIRONE HCL 5 MG TABLET PO SCH (09:00)
[2019-01-11] MEDS ORDERED: BUPROPION HCL XL 150 MG TAB PO SCH (09:00)
[2019-01-11] MEDS ORDERED: CYCLOBENZAPRINE 10 MG TAB PO SCH (09:00)
[2019-01-11] MEDS ORDERED: METOPROLOL TAR 25 MG TAB PO SCH (09:00)
[2019-01-11] MEDS ORDERED: CITALOPRAM HYDROBROMIDE PO SCH (09:00)
--- NOTE | 2019-01-11 10:19 | EKG ---
Test Date: 2019-01-10 Test Time: 17:26:05 Manager Creative: MUKESH MEASUREMENT RESULTS: Intervals: Rate: 62 WV: 176 QRSD: 88 QT: 450 QTc: 456 [place]: P: 21 WV: 176 QRS: 74 T: 66 INTERPRETIVE STATEMENTS: Sinus rhythm with occasional premature ventricular complexes Otherwise normal ECG Compared to ECG 03/20/2017 01:52:48 Ventricular premature complex(es) now present Sinus bradycardia no longer present Electronically Signed On 01-11-19 10:18:21 CDT by Vadim Hoffman
[2019-01-11] MEDS ORDERED: PNEUMOCOCCAL VACCINE 0.5 ML IMVAC ONE (11:00)
[2019-01-11] MEDS: NA CHLORIDE 0.9% 1,000 ML IV SCH (12:42)
--- NOTE | 2019-01-11 13:30 | CON ---
Date of Consultation: 01/11/2019 Reason For Consultation: Cardiac clearance for left hip fracture. History Of Present Illness: Ms. Gomez is 63, has a history of CVA, dyslipidemia, hypertension, COPD, mechanical mitral valve replacement, anxiety. She is on Coumadin, has been switched to Lovenox. La INR was 1.49. No cardiac symptoms. No chest pain. No shortness of breath. Denied nausea, vomit ing, diaphoresis, PND, orthopnea, pedal edema, palpitations, or syncope. Last echocardiogram in 2017; ejection fraction of 50%, normal prosthetic mitral valve. Past Medical History: As stated above. Allergies: NONE. Review of Systems: Negative. Social History: Negative. Family History: Negative. Medications: At home include aspirin, Norvasc, Lipitor, Wellbutrin, Neurontin, Lopressor, Coumadin, and Prilosec. Physical Examination: Vital signs: Stable, sinus rhythm, afebrile. HEENT: Negative. Neck: Supple. No bruit. Chest: Clear. Cardiac: Revealed a regular rhythm and rate. No murmurs, gallops, or rubs. Abdomen: Benign. Extremities: Revealed no clubbing, cyanosis, or edema. Skin: Dry and intact. Neurologic: She was nonfocal. Diagnostic Data: Within normal limits except for the INR of 1.49. She is on Lovenox. Impression And Plan: Status post mechanical mitral valve. Normal echo, ejection fraction a year ago , normal prosthetic valve function. No cardiac symptoms. No clinical evidence of congestive heart f ailure or coronary artery disease. I would continue the Lovenox once the INR is appropriate, which s eems to be at this point, then I think she is cleared for surgery from my standpoint. Her other prob lems including history of cerebrovascular accident, hypertension, dyslipidemia, chronic obstructive p ulmonary disease, and anxiety seemed to be stable. Coumadin should be resumed along with Lovenox aft er surgery. I think her INR is appropriate enough to get off the Lovenox. We can certainly do that as an outpatient. MERY/KATTY Voice ID: [id number] Report ID: [id number]
[2019-01-11] MEDS ORDERED: CEFAZOLIN/SWI 1gm 1 GM/10 ML SYR ONE (14:48)
[2019-01-11] MEDS ORDERED: SUCCINYLCHOLINE 20 MG/ML (10 ML) IV ONE (14:54)
[2019-01-11] MEDS ORDERED: MIDAZOLAM HCL 2 MG/2 ML INJ ONE (14:59)
[2019-01-11] MEDS ORDERED: ROCURONIUM 50 MG/5 ML VIAL IV ONE (14:59)
[2019-01-11] MEDS ORDERED: PROPOFOL 200 MG/20 ML VIAL IV ONE (14:59)
[2019-01-11] MEDS ORDERED: FENTANYL CITR 250 MCG/5 ML ONE (14:59)
[2019-01-11] MEDS ORDERED: TRANEXAMIC ACID 1,000 MG in NA CHLORIDE 0.9% 50 ML IV ONE ×4 (15:00)
[2019-01-11] MEDS ORDERED: CEFTRIAXONE/SWI 1gm 1 GM/10 ML SYR IVP SCH (15:00)
[2019-01-11] MEDS ORDERED: Ringers Lactate 1,000 ML IV ONE ×2 (15:39→16:29)
[2019-01-11] MEDS ORDERED: ONDANSETRON 4 MG/2 ML VIAL IV PRN (15:58)
[2019-01-11] MEDS ORDERED: NEOSTIGMINE 1 MG/ML -10 ML VIAL ONE (16:34)
[2019-01-11] MEDS ORDERED: Phenylephrine HCl 10 MG/ML 1 ML VIAL ONE (16:35)
[2019-01-11] MEDS ORDERED: GLYCOPYRROLATE 0.2 MG/ML SYR ONE (16:35)
--- NOTE | 2019-01-11 16:37 | PN ---
Date of Progress Note: 01/11/2019 Subjective: Patient is seen and examined. Chart reviewed and case discussed with RN and Dr. Hoffman . The patient states her pain is moderate in intensity, helped with medications. Code Status: Full. Medications: List reviewed. Physical Examination: Vital Signs: Temperature 98.7, heart rate 76, blood pressure 133/60, respirations 18, O2 of 97% on r oom air. General: Awake, alert, oriented x3. Elderly female, in some mild distress due to pain. CV: S1, S2. Regular rate and rhythm. Mechanical murmur present. Respiratory: Moving air well bilaterally. No wheezing or stridor. No use of accessory muscles. Gastrointestinal: Abdomen is soft, nontender, nondistended. Positive bowel sounds. No guarding or rigidity. Extremities: No clubbing or cyanosis. Mild edema of the left lower extremity. Musculoskeletal: Left lower extremity decreased range of motion. Tenderness to palpation at the hip joint. Neuro: Cranial nerves 2 through 12 intact grossly. No focal neurological deficit. Speech is normal . SKIN: No rashes. Normal skin turgor. Laboratory Data: Sodium 142, potassium 4.4, chloride 109, CO2 of 31, BUN 19, creatinine 1, glucose 1 34, calcium 8.4, magnesium 1.8. WBC 9.2, H and H 11.4 and 33.2, platelets 129, neutrophils 78%. UA negative nitrite, 1+ leukocyte esterase, greater than 50 rbc's, 5-10 wbc's, less than 20 bacteria. U rine culture is pending. Assessment And Plan: A 63-year-old female with: 1.Left hip fracture, closed initial encounter. Patient will need cardiac clearance for surgery by Kaylyn Mattson, orthopedic surgeon. Dr. Hoffman has been consulted. He is aware of the patient. The p atient is on Coumadin. INR today is 1.49. Safe to proceed with surgery from coagulation standpoint. Patient will need to be on Lovenox post surgery due to her mechanical valve. 2.Mechanical mitral valve, on Coumadin. Patient was given vitamin K. INR is down to 1.5. We will need to resume Lovenox once surgery is completed and safe to anticoagulate. Cardiology consulted. 3.History of hypertension, stable. 4.Chronic back pain, midline, without sciatica. 5.History of cerebrovascular accident, stable. 6.Mixed hyperlipidemia, stable. Disposition: Likely, will need physical therapy inpatient rehab post surgery. /KATTY Voice ID: [id number] Report ID: [id number]
[2019-01-11] MEDS ORDERED: ATROPINE SULF 1 MG/10 ML SYR IV ONE (16:49)
[2019-01-11] MEDS ORDERED: CEFAZOLIN/SWI 1gm 1 GM/10 ML SYR IVP SCH (17:00)
--- NOTE | 2019-01-11 18:03 | RAD REPORT ---
EXAM DESCRIPTION: RAD - Pelvis - 01/11/2019 5:44 pm CLINICAL HISTORY: Left hip arthroplasty FINDINGS: Left hip arthroplasty. Prosthesis is in good position. No fracture or dislocation. No evidence of loosening
[2019-01-11] MEDS: NACHLORIDE 0.45% 1,000 ML IV SCH (18:57)
[2019-01-11] MEDS: CEFTRIAXONE/SWI 1gm 1 GM/10 ML SYR IVP SCH (20:00)
[2019-01-11] MEDS ORDERED: ATORVASTATIN 10 MG TAB PO SCH (21:00)
[2019-01-11] MEDS: BUSPIRONE HCL 5 MG TABLET PO SCH (21:13)
[2019-01-11] MEDS: CYCLOBENZAPRINE 10 MG TAB PO SCH (21:13)
[2019-01-11] MEDS: ATORVASTATIN 10 MG TAB PO SCH (21:14)
[2019-01-11] MEDS: METOPROLOL TAR 25 MG TAB PO SCH (21:14)
[2019-01-11] MEDS: OXYBUTYNIN ER 5 MG TAB PO SCH (21:14)
[2019-01-12] MEDS: MORPHINE 2 MG/ML SYR IV PRN ×6 (00:59→19:49)
[2019-01-12] MEDS: CEFAZOLIN/SWI 1gm 1 GM/10 ML SYR IVP SCH ×2 (01:00→09:31)
[2019-01-12] MEDS ORDERED: CEFAZOLIN/SWI 1gm 1 GM/10 ML SYR ONE (02:05)
[2019-01-12] MEDS: HYDROCODONE/APAP 5/325 MG TAB PO PRN ×3 (02:16→17:47)
--- NOTE | 2019-01-12 03:50 | OP ---
Surgeon: Donell Mattson MD Preoperative Diagnosis: Left hip femoral neck fracture. Postoperative Diagnosis: Left hip femoral neck fracture. Procedure Performed: Left hip hemiarthroplasty. Painting Instructor: Juan Monreal PA-C Complications: None. Disposition: Recovery room, stable. Procedure In Detail: Patient was taken to the operative suite, placed in supine position, induced an esthesia, placed in a lateral side, left side up. Posterior approach to the hip was utilized. The e xternal rotators were tagged for later reattachment. A 45 mm ball was delivered after osteotomizing the femoral neck remnant 1 fingerbreadth above the lesser trochanter. Hemostasis was verified, metic ulous throughout the case. The canal was reamed and broached for a 15 stem. A 15 stem was impacted in appropriate orientation and version. A -3 offset gave appropriate balance. Permanent implants we re placed. A layered closure was performed including repair of external rotators through drill holes in bone. Patient should be in the recovery room shortly. VAISHNAVI/KATTY Voice ID: [id number] Report ID: [id number]
[2019-01-12 05:28] LABS: Absolute Lymphocytes (CBC) 0.9 K/uL (0.7-4.9); Basophils % 0.2 % (0-1.3); Hematocrit 31.8 % (36.0-45.0); Lymphocytes % 6.4 % (15.3-44.8); MPV 9.8 fL (7.6-11.3); RBC Red Blood Cell Count 3.53 M/uL (3.86-4.86)
[2019-01-12 05:37] LABS: Potassium 3.7 mmol/L (3.5-5.1)
[2019-01-12 05:56] LABS: Protime INR 1.19
[2019-01-12] MEDS: WARFARIN SODIUM 4 MG TAB PO SCH (06:00)
[2019-01-12] MEDS: WARFARIN SODIUM 3 MG TAB PO SCH (06:00)
[2019-01-12] MEDS ORDERED: POTASSIUM CL SA 10 MEQ TAB PO ONE (06:24)
[2019-01-12 06:27] LABS: Magnesium 1.5 mg/dL (1.8-2.4)
[2019-01-12] MEDS: NACHLORIDE 0.45% 1,000 ML IV SCH ×3 (06:34→22:28)
[2019-01-12] MEDS ORDERED: Magnesium Sulfate 2gm IVPB 2 G/50 ML BAG IV ONE (06:45)
[2019-01-12 07:03] LABS: Blood Morphology Comment NOT SEEN (NOT SEEN); Platelet Estimate ADEQ
[2019-01-12] MEDS: BUPROPION HCL XL 150 MG TAB PO SCH (09:00)
[2019-01-12] MEDS: CEFTRIAXONE/SWI 1gm 1 GM/10 ML SYR IVP SCH (09:31)
[2019-01-12] MEDS: OXYBUTYNIN ER 5 MG TAB PO SCH ×2 (09:31→22:24)
[2019-01-12] MEDS: CYCLOBENZAPRINE 10 MG TAB PO SCH ×2 (09:31→22:22)
[2019-01-12] MEDS: BUSPIRONE HCL 5 MG TABLET PO SCH ×2 (09:32→22:23)
[2019-01-12] MEDS: GABAPENTIN 300 MG CAP PO SCH (09:32)
[2019-01-12] MEDS: PANTOPRAZOLE 40MG TABLET PO SCH (09:32)
[2019-01-12] MEDS: METOPROLOL TAR 25 MG TAB PO SCH ×2 (09:34→22:23)
[2019-01-12] MEDS ORDERED: CITALOPRAM 10 MG TABLET PO SCH (10:01)
[2019-01-12] MEDS: CITALOPRAM 10 MG TABLET PO SCH (11:30)
[2019-01-12] MEDS ORDERED: PNEUMOCOCCAL VACCINE 0.5 ML IMVAC ONE (13:00)
--- NOTE | 2019-01-12 14:14 | PN ---
Date of Progress Note: 01/12/2019 Subjective: Patient seen and examined, chart reviewed, and case discussed with RN. The patient did well postoperatively. Case discussed with Dr. Mattson. The patient is still having some pain, croft eugenie, improved. Medications reviewed. Physical Examination: Vital Signs: Temperature 98.7, heart rate 95, blood pressure 133/84, respirations 19, O2 97% on room air. GENERAL: Awake, alert, oriented x3. Elderly female, in some mild distress due to pain. CV: S1, S2. Regular rate and rhythm. Peripheral pulses present. Mechanical murmur present. Respiratory: Moving air well bilaterally. No wheezing or stridor. No use of accessory muscles. Gastrointestinal: Abdomen is soft, nontender, nondistended. Positive bowel sounds. Extremities: No clubbing, cyanosis, or edema. Musculoskeletal: Left hip incision site clean, dry, intact. Neurologic: Nonfocal. Laboratory Data: Sodium 138, potassium 3.7, chloride 103, CO2 of 28, BUN 11, creatinine 0.83, glucos e 120, calcium 7.9, phosphorus 3, magnesium 1.5. WBC 13.7, H and H 10.9 and 31.8, platelets 120, ofelia trophils 85%. INR is 1.19. Urine culture, no growth to date. Assessment And Plan: 1.A 63-year-old female with left hip fracture, initial encounter, closed, status post ORIF, postoper ative day #1. Pain is being controlled with medications. The patient has been restarted on Coumadin . We will need to start Lovenox due to subtherapeutic INR. Appreciate Dr. Mattson's input. 2.Mechanical mitral valve, on Coumadin. INR today is 1.1. Coumadin has been resumed. We will star t on Lovenox therapeutic dose to bridge until INR is 2.5. 3.History of hypertension, stable. 4.Chronic back pain, midline, without sciatica, stable. 5.History of cerebrovascular accident, stable. 6.Mixed hyperlipidemia. Continue home medications. 7.Deep vein thrombosis prophylaxis addressed. 8.Acute cystitis with hematuria. We will continue on Rocephin. Urine cultures no growth to date. 9.Disposition, likely to inpatient rehab once medically cleared. Step-down from ICU. SA/MODL Voice ID: [id number] Report ID: [id number]
[2019-01-12] MEDS: ATORVASTATIN 10 MG TAB PO SCH (22:23)
[2019-01-12] MEDS: ENOXAPARIN 80 MG/0.8 ML SQ SCH (22:24)
[2019-01-13] MEDS: MORPHINE 2 MG/ML SYR IV PRN ×6 (00:23→20:01)
[2019-01-13 05:41] LABS: Basophils % 0.3 % (0-1.3); Hematocrit 28.7 % (36.0-45.0); Lymphocytes % 7.9 % (15.3-44.8); MPV 9.6 fL (7.6-11.3); RBC Red Blood Cell Count 3.19 M/uL (3.86-4.86)
[2019-01-13 05:52] LABS: Protime INR 1.38
[2019-01-13 05:55] LABS: Potassium 4.2 mmol/L (3.5-5.1)
[2019-01-13] MEDS: PANTOPRAZOLE 40MG TABLET PO SCH (05:58)
--- NOTE | 2019-01-13 07:46 | P.PN ---
Subjective Date of Service: 01/13/19 Chief Complaint: Fall Subjective: No C/O voiced, Tolerating diet, Ambulating Physical Examination - Vital Signs Temperature: 98.8 F Blood Pressure: 129/67 Pulse: 91 Respirations: 18 Pulse Ox (%): 93
[2019-01-13] MEDS: CEFTRIAXONE/SWI 1gm 1 GM/10 ML SYR IVP SCH (08:42)
[2019-01-13] MEDS: METOPROLOL TAR 25 MG TAB PO SCH ×2 (08:43→20:04)
[2019-01-13] MEDS: ENOXAPARIN 80 MG/0.8 ML SQ SCH ×2 (08:43→20:03)
[2019-01-13] MEDS: CITALOPRAM 10 MG TABLET PO SCH (08:44)
[2019-01-13] MEDS: CYCLOBENZAPRINE 10 MG TAB PO SCH ×2 (08:44→20:02)
[2019-01-13] MEDS: GABAPENTIN 300 MG CAP PO SCH (08:45)
[2019-01-13] MEDS: BUSPIRONE HCL 5 MG TABLET PO SCH ×2 (08:45→21:10)
[2019-01-13] MEDS: OXYBUTYNIN ER 5 MG TAB PO SCH ×2 (08:46→20:02)
[2019-01-13] MEDS: BUPROPION HCL XL 150 MG TAB PO SCH (10:59)
[2019-01-13] MEDS: NACHLORIDE 0.45% 1,000 ML IV SCH (11:29)
--- NOTE | 2019-01-13 12:12 | PN ---
Date of Progress Note: 01/13/2019 Patient seen and examined, chart reviewed and case discussed with RN. Patient is doing well. No acu te events overnight. Medications: List reviewed. Physical Examination: Vital Signs: Temperature 97.5, heart rate 91, blood pressure 183/74, respirations 18, O2 at 94% on r oom air. General: Awake, alert, oriented x3, in some mild distress due to pain. Elderly female. CV: S1, S2. Regular rate and rhythm. Peripheral pulses present. Mechanical murmur is present. Res piratory: Clear to auscultation bilaterally. No wheezing or stridor. No use of accessory muscles. Gastrointestinal: Abdomen is soft, nontender, nondistended. Positive bowel sounds. No guarding or rigidity. Extremities: No clubbing, cyanosis, or edema. Musculoskeletal: Left hip incision site clean, dry, intact. Drain out. Neurologic: Nonfocal. Laboratory Data: Sodium 137, potassium 4.2, chloride 104, CO2 of 28, BUN 12, creatinine 0.79, glucos e 120, calcium 8.2. WBC 12, H and H 9.8, 28.7, platelets 111, neutrophils 79%. Urine culture, no gr owth. Assessment And Plan: A 63-year-old female with; 1.Left hip fracture, initial encounter closed, status post ORIF postoperative day #2. The patient r eturned to work with PT, only sat on the edge of the bed with touchdown. Orthopedics on board. We w ill continue with Lovenox. 2.Mechanical mitral valve. Continue Coumadin. INR still subtherapeutic at 1.38 and we will continu e to monitor. Continue bridging with Lovenox until INR is 2.5 to avoid thrombosis of the mechanical valve. Appreciate Cardiology input. 3.History of hypertension, labile. We will continue home medications. Monitor closely. 4.Chronic back pain, midline, without sciatica, stable. 5.History of cerebrovascular accident stable. 6.Mixed hyperlipidemia, stable. 7.Acute cystitis with hematuria. We will continue on Rocephin. Urine culture no growth to date. 8.Deep venous thrombosis prophylaxis. The patient is on Lovenox and Coumadin. Disposition: Inpatient rehab, transfer once accepted and medically cleared. /KATTY Voice ID: [id number] Report ID: [id number]
[2019-01-13] MEDS: WARFARIN SODIUM 4 MG TAB PO SCH (16:40)
[2019-01-13] MEDS: WARFARIN SODIUM 3 MG TAB PO SCH (16:40)
[2019-01-13] MEDS: ATORVASTATIN 10 MG TAB PO SCH (20:04)
[2019-01-13] MEDS: TRAZODONE 50 MG TABLET PO PRN (20:04)
[2019-01-14] MEDS: MORPHINE 2 MG/ML SYR IV PRN ×3 (01:46→20:20)
[2019-01-14 06:12] LABS: Protime INR 1.38
[2019-01-14 06:14] LABS: Basophils % 0.5 % (0-1.3); Hematocrit 25.8 % (36.0-45.0); Lymphocytes % 10.4 % (15.3-44.8); MPV 9.7 fL (7.6-11.3); RBC Red Blood Cell Count 2.87 M/uL (3.86-4.86)
[2019-01-14 06:16] LABS: Albumin 2.2 g/dL (3.4-5.0); Bilirubin Total 0.4 mg/dL (0.2-1.0); Potassium 3.8 mmol/L (3.5-5.1); Protein, Total 5.7 g/dL (6.4-8.2)
[2019-01-14] MEDS: HYDROCODONE/APAP 5/325 MG TAB PO PRN ×3 (08:19→22:55)
[2019-01-14] MEDS: ENOXAPARIN 80 MG/0.8 ML SQ SCH ×2 (08:20→21:11)
[2019-01-14] MEDS: CYCLOBENZAPRINE 10 MG TAB PO SCH ×2 (08:20→21:16)
[2019-01-14] MEDS: GABAPENTIN 300 MG CAP PO SCH (08:20)
[2019-01-14] MEDS: PANTOPRAZOLE 40MG TABLET PO SCH (08:20)
[2019-01-14] MEDS: BUPROPION HCL XL 150 MG TAB PO SCH (08:22)
[2019-01-14] MEDS: METOPROLOL TAR 25 MG TAB PO SCH ×2 (08:22→21:15)
[2019-01-14] MEDS: BUSPIRONE HCL 5 MG TABLET PO SCH ×2 (08:23→21:11)
[2019-01-14] MEDS: CITALOPRAM 10 MG TABLET PO SCH (08:23)
[2019-01-14] MEDS: OXYBUTYNIN ER 5 MG TAB PO SCH ×2 (08:23→21:12)
[2019-01-14] MEDS: CEFTRIAXONE/SWI 1gm 1 GM/10 ML SYR IVP SCH (08:24)
[2019-01-14] MEDS ORDERED: POTASSIUM CL SA 10 MEQ TAB PO ONE (09:00)
--- NOTE | 2019-01-14 10:11 | P.PN ---
Subjective Date of Service: 01/14/19 Chief Complaint: Fall Subjective: Doing well (stable from orthop standpoint) Physical Examination - Vital Signs Temperature: 98 F Blood Pressure: 128/65 Pulse: 87 Respirations: 18 Pulse Ox (%): 96
--- NOTE | 2019-01-14 11:15 | PN ---
Date of Progress Note: 01/14/2019 Subjective: Patient seen and examined. Chart reviewed and case discussed with RN. Patient has cont inued to work with PT. Her pain is better controlled. Medications: List reviewed. Physical Examination: Vital Signs: Temperature 98, heart rate 87, blood pressure 128/65, respirations 18, O2 97% on room a ir. General: Awake, alert, oriented x3, not in any acute distress. CV: S1, S2. Regular rate and rhythm. Peripheral pulses present. Gastrointestinal: Abdomen is soft, nontender, nondistended. Positive bowel sounds. Extremities: No clubbing, cyanosis, or edema. Musculoskeletal: Left hip incision site clean, dry, intact. Neurovascularly intact. Neurologic: Nonfocal. Sensation intact to light touch. Laboratory Data: Sodium 139, potassium 3.8, chloride 105, CO2 of 30, BUN 12, creatinine 0.76, glucos e 130, calcium 8.3, albumin is 2.2. WBC 9.5, H and H 9 and 25.8, platelets 130. Urine culture, no g rowth final. Assessment And Plan: 63-year-old female with: 1.Left hip fracture, initial encounter closed, status post open reduction and internal fixation post op day #3. We will continue with PT eval. Appreciate Dr. Mattson's input. Lovenox for deep venous thrombosis prophylaxis. 2.Mechanical mitral valve. INR still subtherapeutic at 1.38. We will keep Coumadin at the same dos e, as patient recently had surgery. Has drop in hemoglobin and is on therapeutic Lovenox to bridge u ntil INR is in range to avoid thrombosis of mechanical valve. Appreciate Cardiology input. 3.History of hypertension, currently labile. We will continue with medications, if greater than 180 . 4.Chronic back pain, midline, without sciatica, stable. 5.History of CVA, stable. 6.Hyperlipidemia, stable. 7.Acute cystitis with hematuria. Urine culture is negative. Patient is on Rocephin. 8.Deep venous thrombosis prophylaxis with Lovenox, Coumadin. Plan, transfer to inpatient rehab once medically cleared. SA/MODL Voice ID: [id number] Report ID: [id number]
[2019-01-14] MEDS: WARFARIN SODIUM 4 MG TAB PO SCH (16:02)
[2019-01-14] MEDS: WARFARIN SODIUM 3 MG TAB PO SCH (16:02)
[2019-01-14] MEDS: TRAZODONE 50 MG TABLET PO PRN (21:14)
[2019-01-14] MEDS: ATORVASTATIN 10 MG TAB PO SCH (21:15)
[2019-01-15] MEDS: MORPHINE 2 MG/ML SYR IV PRN ×3 (01:41→20:25)
[2019-01-15] MEDS: HYDROCODONE/APAP 5/325 MG TAB PO PRN ×3 (04:22→17:00)
[2019-01-15 05:35] LABS: Absolute Lymphocytes (CBC) 1.3 K/uL (0.7-4.9); Basophils % 0.5 % (0-1.3); Hematocrit 24.2 % (36.0-45.0); Lymphocytes % 17.4 % (15.3-44.8); MPV 9.6 fL (7.6-11.3); RBC Red Blood Cell Count 2.68 M/uL (3.86-4.86)
[2019-01-15 05:52] LABS: Albumin 1.9 g/dL (3.4-5.0); Bilirubin Total 0.3 mg/dL (0.2-1.0); Potassium 3.7 mmol/L (3.5-5.1); Protein, Total 5.6 g/dL (6.4-8.2)
[2019-01-15] MEDS ORDERED: POTASSIUM CL SA 10 MEQ TAB PO ONE (06:10)
[2019-01-15 06:45] VITALS: BMI 26.2
[2019-01-15 09:13] LABS: Protime INR 2.23
[2019-01-15] MEDS: BUSPIRONE HCL 5 MG TABLET PO SCH ×2 (09:22→20:24)
[2019-01-15] MEDS: ENOXAPARIN 80 MG/0.8 ML SQ SCH (09:22)
[2019-01-15] MEDS: METOPROLOL TAR 25 MG TAB PO SCH ×2 (09:22→20:24)
[2019-01-15] MEDS: GABAPENTIN 300 MG CAP PO SCH (09:22)
[2019-01-15] MEDS: CITALOPRAM 10 MG TABLET PO SCH (09:22)
[2019-01-15] MEDS: PANTOPRAZOLE 40MG TABLET PO SCH (09:22)
[2019-01-15] MEDS: CEFTRIAXONE/SWI 1gm 1 GM/10 ML SYR IVP SCH (09:23)
[2019-01-15] MEDS: OXYBUTYNIN ER 5 MG TAB PO SCH ×2 (09:23→20:24)
[2019-01-15] MEDS: BUPROPION HCL XL 150 MG TAB PO SCH (09:23)
[2019-01-15] MEDS: CYCLOBENZAPRINE 10 MG TAB PO SCH ×2 (09:23→21:26)
[2019-01-15] MEDS: WARFARIN SODIUM 4 MG TAB PO SCH (17:00)
[2019-01-15] MEDS: WARFARIN SODIUM 3 MG TAB PO SCH (17:00)
--- NOTE | 2019-01-15 17:40 | P.PN ---
Subjective Date of Service: 01/15/19 Chief Complaint: Fall Subjective: No new changes, No C/O voiced Review of Systems 10-point ROS is otherwise unremarkable Physical Examination - Vital Signs Temperature: 99.4 F Blood Pressure: 101/70 Pulse: 87 Respirations: 18 Pulse Ox (%): 98 - Physical Exam General: Alert HEENT: Atraumatic Musculoskeletal: Other (dressings c/d/i) Assessment And Plan - Current Problems (Diagnosis) (1) History of hemiarthroplasty of left hip Onset Date: ~01/12/19 Current Visit: Yes Status: Acute Plan: may discharge on home health pt when safe and stable WBAT with walker, anticoagulate 28 days from discharge, we usually use xeralto 10mg po QD, f/u in office 2 weeks post op. Discharge Plan: Home Plan to discharge in: 24 Hours
[2019-01-15] MEDS: ATORVASTATIN 10 MG TAB PO SCH (20:24)
--- NOTE | 2019-01-15 20:26 | DS ---
Date of service 01/15/19 Consultants: Dr. Mattson. Procedures: On 01/11/2019, left hip hemiarthroplasty. Admitting Diagnoses: 1. Closed left hip fracture, initial encounter. 2. History of essential hypertension, on chronic anticoagulation. 3. Chronic back pain, midline without sciatica. 4. History of mitral valve repair with mechanical valve on chronic anticoagulation. Discharge Diagnoses: 1. Left femoral neck fracture, closed initial encounter status post open reduction and internal fixation. 2. Mechanical mitral valve on Coumadin. 3. Essential hypertension, stable. 4. Chronic back pain, midline, without sciatica, stable. 5. History of cerebrovascular accident, stable. 6. Mixed hyperlipidemia, stable. 7. Acute cystitis without hematuria. Culture negative. 8. Acute blood loss anemia due to postoperative status. Hospital Course: Patient is a 63-year-old female with past medical history of mechanical mitral valve on Coumadin, chronic back pain, and hypertension and hyperlipidemia, history of CVA, comes in with mechanical fall. Patient was found to have a left femoral neck fracture. Dr. Mattson was consulted. Patient was taken for procedure as mentioned above, she tolerated the hip surgery well. She did well postoperatively. Prior to surgery she was seen by Cardiology, Dr. Hoffman for cardiac clearance due to patient's history of use of chronic anticoagulation for mechanical valve. Her INR was in therapeutic range. She received vitamin K to reduce the INR below 1.5. Her Lovenox was stopped 12 hours prior to surgery. Coumadin was restarted 24 hours post surgery and she was placed back on Lovenox therapeutic dose to bridge until INR was back within therapeutic level due to mechanical mitral valve and risk of thrombosis. Patient's Coumadin was continued. Her INR did eventually come up to 2.25, at that point therapeutic Lovenox was discontinued. Patient overall did well. She had some mild electrolyte abnormalities, including hypomagnesemia which was corrected. She did have mild drop in her hemoglobin from 12.3 to 8.3, likely related to surgery and because she is on anticoagulation. Patient overall did well, she was working well with rehab. She was referred to inpatient rehab facility and will be discharged once accepted. Medications: As per medication reconciliation list. Followup: Follow up with primary care physician in 2-3 days. Follow up with orthopedic surgeon, Dr. Mattson in 7 to 10 days for wound check. Return to ER for worsening condition. Repeat INR in 2 days. Diet: Heart healthy. Activity: As per rehab. Physical Examination: General: Awake, alert, oriented x3. No acute distress. CV: S1-S2. Respiratory: Moving air well bilaterally. Abdomen: Abdomen is soft, nontender, nondistended. Positive bowel sounds. Extremities: No clubbing, cyanosis, edema. Neurologic: Nonfocal. Musculoskeletal: Left hip incision site clean, dry, and bandaged. Time Spent: Total time spent discharging the patient was 41 minutes. MAGGIE Voice ID: [id number] Report ID: [id number] MARILYN
[2019-01-16] MEDS: HYDROCODONE/APAP 5/325 MG TAB PO PRN ×4 (02:28→22:32)
[2019-01-16 06:36] LABS: Basophils % 0.4 % (0-1.3); Hematocrit 25.5 % (36.0-45.0); Lymphocytes % 14.2 % (15.3-44.8); MPV 9.3 fL (7.6-11.3); RBC Red Blood Cell Count 2.84 M/uL (3.86-4.86)
[2019-01-16 06:56] LABS: Albumin 1.9 g/dL (3.4-5.0); Bilirubin Total 0.3 mg/dL (0.2-1.0); Potassium 3.8 mmol/L (3.5-5.1); Protein, Total 5.8 g/dL (6.4-8.2)
[2019-01-16] MEDS: GABAPENTIN 300 MG CAP PO SCH (08:52)
[2019-01-16] MEDS: BUSPIRONE HCL 5 MG TABLET PO SCH ×2 (08:52→20:04)
[2019-01-16] MEDS: CITALOPRAM 10 MG TABLET PO SCH (08:53)
[2019-01-16] MEDS: CYCLOBENZAPRINE 10 MG TAB PO SCH ×2 (08:54→20:34)
[2019-01-16] MEDS: BUPROPION HCL XL 150 MG TAB PO SCH (08:54)
[2019-01-16] MEDS: METOPROLOL TAR 25 MG TAB PO SCH ×2 (08:55→20:04)
[2019-01-16] MEDS: OXYBUTYNIN ER 5 MG TAB PO SCH ×2 (08:55→20:04)
[2019-01-16] MEDS: PANTOPRAZOLE 40MG TABLET PO SCH (08:56)
[2019-01-16] MEDS ORDERED: POTASSIUM CL SA 10 MEQ TAB PO ONE (09:00)
--- NOTE | 2019-01-16 09:54 | P.DS ---
Admission Date: 01/10/19 Discharge Date: 01/16/19 Primary Care Provider: unknown Disposition: TRANSFER TO INPATIENT REHAB Discharge Condition: FAIR Reason for Admission: Fall Consultations: Orthopedics-Dr. Mattson Procedures: Hip Xray: COMPARISON: No comparisons FINDINGS: Subcapital fracture is seen proximal left femur with varus angulation. Procedure: Surgeon: Donell Mattson MD Preoperative Diagnosis: Left hip femoral neck fracture. Postoperative Diagnosis: Left hip femoral neck fracture. Procedure Performed: Left hip hemiarthroplasty. Extension Agent: Juan Monreal PA-C Complications: None. Medical problem list: Left hip femoral neck fracture status post left hip vish arthroplasty status post mechanical fall History mechanical mitral valve replacement on chronic anti coagulation therapy- Coumadin Chronic back pain, midline, without sciatica stable History of CVA Mixed hyperlipidemia Acute cystitis without hematuria, culture negative Acute blood-loss anemia due to post operative status Depression with anxiety Hypertension Urinary incontinence GERD Brief History of Present Illness: 63-year-old female with past medical history of mechanical mitral valve on Coumadin, chronic back pain, hypertension, history CVA and hyperlipidemia. Patient presented after mechanical fall. She was found to have a left femoral neck fracture. Orthopedics was consulted. Hospital Course: Patient was evaluated by Orthopedic surgery who recommended surgical intervention. Patient was seen by Cardiology and cleared for cardiac clearance. Her INR was in the therapeutic range prior to surgery. Patient received vitamin K to reduce INR below 1.5. Lovenox was stopped 12 hr prior to surgery. Patient was eventually taken for surgery. Left hip hemiarthroplasty was performed without complication. Coumadin was restarted 24 hr post surgery. She was also placed on Lovenox to bridge until INR was back within therapeutic level. Her INR did eventually come up to therapeutic range. Lovenox was discontinued. Patient remains on Coumadin 7 mg daily. Patient did well in the course of her stay. She had some mild electrolyte abnormalities which was corrected. She had a mild drop in her hemoglobin from 12.3-8.3 likely related to surgery. Patient did well over time with physical therapy. Patient was evaluated by inpatient rehab. Patient stable for discharge to inpatient rehab. Recommend to monitor INR every week to monitor her progress. Recommend INR between 2.5 and 3.5. Further adjustment can be done by her PCP. Patient with hypertension. This has remained stable. At discharge she will continue with Norvasc 5 mg daily and metoprolol 25 mg 1 pill twice daily. Recommend to maintain blood pressures less 150/80. Further adjustment can be done by her PCP. Patient with hyperlipidemia. Patient will continue with Lipitor 10 mg daily. Patient with depression and anxiety. Patient will continue with her medications including Wellbutrin X L3 100 mg daily, buspirone 10 mg 1 pill twice daily, Celexa 20 mg 1 pill daily. She also takes trazodone. Patient with urinary incontinence. Patient will continue with ditropan XL 10 mg 1 pill twice daily. Patient with GERD. Patient will continue with Prilosec 20 mg daily. Patient with acute anemia. This has remained stable. At discharge she will continue with iron supplementation daily. Patient with chronic pain. At discharge she will continue with her current medications of [place] 7.5 mg 4 times a day as needed for pain, gabapentin 600 mg 4 times a day, and Flexeril 10 mg 1 pill twice daily as needed for muscle spasm. Vital Signs/Physical Exam: Temp Pulse Resp BP Pulse Ox 98.2 F 69 18 118/68 99 01/16/19 08:00 01/16/19 08:55 01/16/19 08:00 01/16/19 08:55 01/16/19 08:00 General: Alert, In no apparent distress, Oriented x3, Cooperative HEENT: Atraumatic Neck: Supple Respiratory: Clear to auscultation bilaterally, Normal air movement Cardiovascular: Normal pulses, Regular rate/rhythm Gastrointestinal: Normal bowel sounds, Soft and benign, Non-distended Musculoskeletal: No erythema, No tenderness, No warmth Integumentary: No erythema, No warmth, No cyanosis Neurological: Normal speech, Normal strength at 5/5 x4 extr, Normal tone, Normal affect Laboratory Data at Discharge: WBC 7.0 K/uL (4.3-10.9) 01/16/19 05:52 Hgb 8.7 g/dL (12.0-15.0) L 01/16/19 05:52 Hct 25.5 % (36.0-45.0) L 01/16/19 05:52 Plt Count 167 K/uL (152-406) 01/16/19 05:52 PT 25.5 SECONDS (9.5-12.5) H 01/15/19 09:04 INR 2.23 01/15/19 09:04 Sodium 142 mmol/L (136-145) 01/16/19 05:52 Potassium 3.8 mmol/L (3.5-5.1) 01/16/19 05:52 BUN 10 mg/dL (7-18) 01/16/19 05:52 Creatinine 0.73 mg/dL (0.55-1.3) 01/16/19 05:52 Glucose 116 mg/dL (74-106) H 01/16/19 05:52 Phosphorus 3.0 mg/dL (2.5-4.9) 01/12/19 04:39 Magnesium 2.2 mg/dL (1.8-2.4) D 01/12/19 13:00 Total Bilirubin 0.3 mg/dL (0.2-1.0) 01/16/19 05:52 AST 30 U/L (15-37) 01/16/19 05:52 ALT 31 U/L (12-78) 01/16/19 05:52 Alkaline Phosphatase 74 U/L (45-117) 01/16/19 05:52 Home Medications: Bupropion HCl [Wellbutrin Xl] 300 mg PO DAILY 03/20/17 Gabapentin 600 mg PO Q6H 03/20/17 Omeprazole 20 mg PO DAILY 03/20/17 Oxybutynin Chloride [Ditropan Xl] 2 tab PO BID 03/20/17 Trazodone HCl 100 mg PO BID 03/20/17 Warfarin Sodium 7 mg PO BEDTIME 03/20/17 Hydrocodone 7.5/APAP 325 [[place] 7.5/325 mg*] 1 tab PO Q6H PRN 03/25/17 Atorvastatin Calcium 10 mg PO BEDTIME #30 tablet 03/31/17 Iron/FA/Vit B-Com W/C [Hemocyte Plus*] 1 tab PO DAILY #30 tab 03/31/17 Amlodipine [Norvasc*] 1 tab PO DAILY 01/10/19 Aspirin 1 tab PO DAILY 01/10/19 Buspirone HCl [Buspar] 1 tab PO BID 01/10/19 Cyclobenzaprine [Flexeril*] 1 tab PO BID 01/10/19 Metoprolol Tartrate [Lopressor*] 25 mg PO BID 01/10/19 Citalopram [Celexa*] 20 mg PO DAILY tablet 01/15/19 Patient Discharge Instructions: Follow up with primary care physician in 2-3 days. Follow up with orthopedic physician Dr. Mattson in 7-10 days for wound check. Return to ER for worsening condition. Repeat INR in 2 days Diet: AHA Activity: as per rehab Time spent managing pt's care (in minutes): 55
[2019-01-16] MEDS: MORPHINE 2 MG/ML SYR IV PRN ×2 (12:50→19:39)
[2019-01-16] MEDS: WARFARIN SODIUM 4 MG TAB PO SCH (16:47)
[2019-01-16] MEDS: WARFARIN SODIUM 3 MG TAB PO SCH (16:47)
[2019-01-16] MEDS: ATORVASTATIN 10 MG TAB PO SCH (20:03)
[2019-01-16] MEDS: TRAZODONE 50 MG TABLET PO PRN (20:04)
[2019-01-17 04:38] LABS: Potassium 4.1 mmol/L (3.5-5.1)
[2019-01-17 04:52] LABS: Protime INR 3.36
[2019-01-17] MEDS: BUSPIRONE HCL 5 MG TABLET PO SCH ×2 (07:45→20:21)
[2019-01-17] MEDS: CYCLOBENZAPRINE 10 MG TAB PO SCH ×2 (07:45→20:20)
[2019-01-17] MEDS: CITALOPRAM 10 MG TABLET PO SCH (07:45)
[2019-01-17] MEDS: HYDROCODONE/APAP 5/325 MG TAB PO PRN ×3 (07:46→20:23)
[2019-01-17] MEDS: GABAPENTIN 300 MG CAP PO SCH (07:46)
[2019-01-17] MEDS: METOPROLOL TAR 25 MG TAB PO SCH ×2 (07:47→20:20)
[2019-01-17] MEDS: BUPROPION HCL XL 150 MG TAB PO SCH (07:48)
[2019-01-17] MEDS: OXYBUTYNIN ER 5 MG TAB PO SCH ×2 (07:49→20:27)
[2019-01-17] MEDS: PANTOPRAZOLE 40MG TABLET PO SCH (07:50)
[2019-01-17] MEDS: WARFARIN SODIUM 3 MG TAB PO SCH (16:03)
[2019-01-17] MEDS: WARFARIN SODIUM 4 MG TAB PO SCH (16:03)
[2019-01-17] MEDS: ACETAMINOPHEN 500 MG TAB PO PRN (19:05)
[2019-01-17] MEDS: TRAZODONE 50 MG TABLET PO PRN (20:19)
[2019-01-17] MEDS: ATORVASTATIN 10 MG TAB PO SCH (20:21)
[2019-01-18] MEDS: HYDROCODONE/APAP 5/325 MG TAB PO PRN ×2 (03:53→10:56)
[2019-01-18] MEDS ORDERED: LACTULOSE 20 GM/30 ML UCUP PO PRN (08:05)
[2019-01-18] MEDS: BUPROPION HCL XL 150 MG TAB PO SCH (08:24)
[2019-01-18] MEDS: CITALOPRAM 10 MG TABLET PO SCH (08:24)
[2019-01-18] MEDS: BUSPIRONE HCL 5 MG TABLET PO SCH (08:25)
[2019-01-18] MEDS: METOPROLOL TAR 25 MG TAB PO SCH (08:25)
[2019-01-18] MEDS: GABAPENTIN 300 MG CAP PO SCH (08:25)
[2019-01-18] MEDS: CYCLOBENZAPRINE 10 MG TAB PO SCH (08:26)
[2019-01-18] MEDS: PANTOPRAZOLE 40MG TABLET PO SCH (08:26)
[2019-01-18] MEDS: OXYBUTYNIN ER 5 MG TAB PO SCH (08:34)
[2019-01-18] MEDS: ACETAMINOPHEN 500 MG TAB PO PRN (08:35)
[2019-01-18] MEDS ORDERED: DOCUSATE NA 100 MG CAP PO SCH (09:00)
[2019-01-18 09:04] VITALS: O2SAT 98
[2019-01-18 12:50] VITALS: BP 95/51; TEMP 98.1
== END 2019-01-18 13:09 | disposition home health service (06) | DRG 469 ==
LOC: ER 17:17 → 4TH 18:57 → 3RD-ICU 01-11 15:03 → 4TH 01-12 13:13
PROVIDERS: ADMIT Family Medicine; ATTEND Family Medicine
PROC: 0SRS0JZ Replacement of Left Hip Joint, Femoral Surface with Synthetic Substitute, Open Approach (ICD-10-PCS; principal; 2019-01-11 15:00)
DX: S72.012A Unspecified intracapsular fracture of left femur, initial encounter for closed fracture (principal); E43 Unspecified severe protein-calorie malnutrition; D62 Acute posthemorrhagic anemia; N30.00 Acute cystitis without hematuria; W18.39XA Other fall on same level, initial encounter; E78.2 Mixed hyperlipidemia; I10 Essential (primary) hypertension; I25.10 Atherosclerotic heart disease of native coronary artery without angina pectoris; K21.9 Gastro-esophageal reflux disease without esophagitis; F41.8 Other specified anxiety disorders; M54.9 Dorsalgia, unspecified; Y92.9 Unspecified place or not applicable; Z68.26 Body mass index [BMI] 26.0-26.9, adult; Z95.2 Presence of prosthetic heart valve; Z86.73 Personal history of transient ischemic attack (TIA), and cerebral infarction without residual deficits; Z79.01 Long term (current) use of anticoagulants
CPT/HCPCS: 36415; 51702; 71045; 72170; 80048; 80053; 81001; 83735; 84100; 85025; 85610; 87086; 87088; 88305; 88311; 90471; 90670; 93005; 94760; 96374; 97110; 97112; 97116; 97161; 97530; 99285; J0330; J0690; J0696; J1650; J2250; J2270; J2370; J2405; J2704; J2710; J3010; J3430; J3475; J7030; J7120